=== PATIENT | male | born 1945 | race Caucasian/White ===

== ENCOUNTER → 2016-06-17 | Outpatient (CLI) | payer BC ==
[~2016-06-17] MED LIST: AMLO-110 PO; ASCA500 PO; ATOR-22 PO; CNT PO; GLUC100014 PO; PRCUNK PO; [UNRECOGNIZED DRUG - OTHER] PO
[2016-06-17 17:52] LABS: ALT/SGPT 48 U/L (12-78); BLOOD UREA NITROGEN 19 mg/dl (7-18); BUN/CREATININE RATIO 19.9 (10-20); CALCIUM 9.1 mg/dl (8.5-10.1); CARBON DIOXIDE 27 mmol/L (21-32); CHLORIDE 104 mmol/L (98-107); CHOLESTEROL 265 mg/dl (0-200); CREATININE 0.96 mg/dl (0.60-1.40); GLUCOSE 110 mg/dl (70-99); POTASSIUM 4.1 mmol/L (3.5-5.1); SODIUM 140 mmol/L (136-145)
[2016-06-17 17:55] LABS: ALB/GLOB RATIO 1.1 (0.9-2); ALKALINE PHOSPHATASE 67 U/L (45-117); AST/SGOT 29 U/L (15-37); CHOLESTEROL/HDL RATIO 4.6; HDL CHOLESTEROL 57 mg/dl; LDL CHOLESTEROL CALCULATED 151 mg/dl; TRIGLYCERIDES 287 mg/dl (0-150); VERY LOW DENSITY LIPOPROT CALC 57 mg/dl
[2016-06-17 18:32] LABS: ESTIMATED AVERAGE GLUCOSE 117 mg/dl; HA1C FLAG Normal (Normal)
== END | disposition home or self-care (01) ==
LOC: C.LABBFT 11:47
PROVIDERS: ATTEND Internal Medicine
DX: R73.01 Impaired fasting glucose (principal)

== ENCOUNTER → 2016-08-08 | Outpatient (CLI) | payer BC ==
--- NOTE | 2016-08-08 13:36 | DIAGNOSTIC IMAGING REPORT ---
ABDOMEN AND PELVIS CT WITH ORAL CONTRAST CT DOSE: 1519.26 mGy.cm HISTORY: Right lower quadrant abdominal pain. I10 [id number] Abdominal pain, [id number] TECHNIQUE: Multiaxial CT images of the abdomen and pelvis were performed following the use of oral contrast. COMPARISON STUDY: Abdomen and pelvis CT 04/20/2011. FINDINGS: Chronic elevation of the left hemidiaphragm, unchanged. Mild interstitial thickening at the lung bases, unchanged. No pneumoperitoneum. No pneumatosis. Small fat-containing right inguinal hernia. Hepatic steatosis. The unenhanced gallbladder, pancreas, adrenal glands, and spleen are unremarkable. Mild bilateral perinephric fat stranding remains unchanged and is likely chronic. No renal stones or hydronephrosis. The bladder is decompressed and not well evaluated. No retroperitoneal lymphadenopathy. No pelvic free fluid. Colonic diverticulosis. Prior appendectomy. A 13 mm hypodense lesion within the upper pole the right kidney. This is incompletely characterize on this noncontrast study but appears similar to the prior examination. Within the mid anterior abdomen there is a focal area of slightly distended small bowel measuring up to 3.9 cm in diameter. There is a focal caliber change on image 311 with a few thickened loops of decompressed small bowel distal to the distended small bowel loop. However, contrast easily extends through the small bowel loops. There is also minimal inflammatory change surrounding these loops of small bowel. There appears to be mild thickening of the loops of small bowel at this location. There is a small umbilical hernia, unchanged. This contains fat and a tiny knuckle of small bowel. However, this does not result in an obstruction. IMPRESSION: A few thickened loops of small bowel within the mid anterior abdomen with surrounding mild inflammatory change. This favors a nonspecific enteritis possibly due to infectious or inflammatory process. There is also focal dilatation of the proximal short segment of thickened small bowel with a transition point and decompressed distal thickened loops of small bowel. However, contrast easily extends into the cecum. Therefore, this may represent a low-grade partial small bowel obstruction from the thickened loops of small bowel. A [address] is recommended to ensure resolution of these findings. Electronically signed by: Ramon Duran M.D. 08/08/2016 1:34 PM Dictated Date/Time: 08/08/2016 1:19 PM
== END | disposition home or self-care (01) ==
LOC: C.CTS 10:35
PROVIDERS: ATTEND Internal Medicine
DX: I10 Essential (primary) hypertension (principal); R10.9 Unspecified abdominal pain

== ENCOUNTER → 2016-08-16 | Outpatient (CLI) | payer BC ==
[2016-08-16 14:35] LABS: BASO % 0.2 %; BASO ABS # 0.02 K/uL (0-0.2); EOS % 1.4 %; HEMATOCRIT 47.4 % (42-52); IG% 0.2 %; LYMPH % 24.2 %; LYMPH ABS # 2.14 K/uL (1.2-3.4); MEAN CELL VOLUME 87.5 fL (80-100); MEAN CORPUSCULAR HEMOGLOBIN 29.5 pg (25-34); MEAN PLATELET VOLUME 10.4 fL (7.4-10.4); MONO % 10.5 %; NEUT % 63.5 %; PLATELET COUNT 176 K/uL (130-400); RED BLOOD COUNT 5.42 M/uL (4.7-6.1); WHITE BLOOD COUNT 8.86 K/uL (4.8-10.8)
[2016-08-16 14:38] LABS: COMPLETE YES; MEAN CORPUSCULAR HGB CONC 33.8 g/dl (32-36)
[2016-08-16 15:49] LABS: ALB/GLOB RATIO 1.1 (0.9-2); ALKALINE PHOSPHATASE 78 U/L (45-117); ALT/SGPT 41 U/L (12-78); AST/SGOT 27 U/L (15-37); BLOOD UREA NITROGEN 26 mg/dl (7-18); BUN/CREATININE RATIO 28.1 (10-20); C-REACTIVE PROTEIN 0.33 mg/dl (0-0.29); CALCIUM 8.8 mg/dl (8.5-10.1); CARBON DIOXIDE 27 mmol/L (21-32); CHLORIDE 106 mmol/L (98-107); CREATININE 0.91 mg/dl (0.60-1.40); GLUCOSE 95 mg/dl (70-99); POTASSIUM 4.1 mmol/L (3.5-5.1); SODIUM 142 mmol/L (136-145)
== END | disposition home or self-care (01) ==
LOC: C.LAB1850 14:10
PROVIDERS: ATTEND Registered Nurse
DX: R93.5 Abnormal findings on diagnostic imaging of other abdominal regions, including retroperitoneum (principal)

== ENCOUNTER → 2016-08-16 | Outpatient (CLI) | payer BC ==
--- NOTE | 2016-08-16 14:53 | DIAGNOSTIC IMAGING REPORT ---
ABDOMEN 2VIEW W/PA CHEST RTN CLINICAL HISTORY: R10.31 Intermittent right lower quadrant abdominal painR14.0 Abd pain. Nausea. COMPARISON STUDY: No previous studies for comparison. FINDINGS: Chronic elevation left hemidiaphragm. Lungs are clear. No evidence for cardiac enlargement. Bowel pattern shows several air-filled loops of bowel left upper quadrant. No significant bowel distention is appreciated. IMPRESSION: 1. Mild ileus. 2. No acute process of the chest. Electronically signed by: Sam Saunders M.D. 08/16/2016 2:52 PM Dictated Date/Time: 08/16/2016 2:49 PM
== END | disposition home or self-care (01) ==
LOC: C.RAD1850 14:25
PROVIDERS: ATTEND Registered Nurse
DX: R14.0 Abdominal distension (gaseous) (principal); R10.31 Right lower quadrant pain; R93.5 Abnormal findings on diagnostic imaging of other abdominal regions, including retroperitoneum; K56.7 Ileus, unspecified

== ENCOUNTER → 2016-08-30 | Outpatient (CLI) | payer BC ==
[~2016-08-30] MED LIST changes: +OPTIRAY 320 IV PRN
--- NOTE | 2016-08-30 09:54 | DIAGNOSTIC IMAGING REPORT ---
CT OF THE ABDOMEN AND PELVIS WITH CONTRAST CLINICAL HISTORY: Intractable abdominal pain and bloating. Abnormal CT scan. COMPARISON STUDY: CT of the abdomen and pelvis August 08, 2016. TECHNIQUE: Following IV administration of 92 mL of Optiray-320, axial images of the abdomen and pelvis were obtained from the lung bases to the proximal femurs. Images were reviewed in the axial, sagittal, and coronal planes. IV contrast was administered without complication. Oral contrast was administered. CT DOSE: 1494.53 mGy.cm FINDINGS: Visualized portions of the lower chest demonstrate stable moderate elevation of the left hemidiaphragm. There is extensive coronary artery calcification. The heart is mildly enlarged. No pneumatosis, free air or portal venous gas is present. The liver, spleen, adrenal glands, left kidney and pancreas are unremarkable. A 1.7 cm right renal cyst is noted. There is no hydronephrosis. There is no biliary or pancreatic ductal dilatation. There is no evidence for a small bowel obstruction. Small bowel dilatation shown on exam of August 08, 2016 has resolved. Minimal mesenteric infiltration has resolved. Small bowel wall thickening shown on that study has also resolved. Note is made of a bowel and fat-containing umbilical hernia. A small bowel loop protrudes through the hernia defect. Small bowel protrusion has developed since prior CT. There is no resultant obstruction. The appendix is surgically absent. There is colonic diverticulosis without evidence for acute diverticulosis. There is no lymphadenopathy. No suspicious skeletal lesions are identified. The prostate is surgically absent. There are small fat-containing bilateral inguinal hernias. IMPRESSION: 1. No acute process within the abdomen or pelvis. Interval resolution of small bowel wall thickening, dilatation and associated mesenteric infiltration shown on CT of August 08, 2016. 2. Umbilical hernia which contains a loop of small bowel. Small bowel protrusion into the hernia sac reflects a new finding since prior exam but results in no bowel obstruction. 3. Extensive colonic diverticulosis without evidence for acute diverticulitis. Electronically signed by: Donta Chung M.D. 08/30/2016 9:53 AM Dictated Date/Time: 08/30/2016 9:43 AM
== END | disposition home or self-care (01) ==
LOC: C.CTS 09:08
PROVIDERS: ATTEND Registered Nurse
DX: R14.0 Abdominal distension (gaseous) (principal); R10.9 Unspecified abdominal pain; R93.5 Abnormal findings on diagnostic imaging of other abdominal regions, including retroperitoneum; K42.9 Umbilical hernia without obstruction or gangrene; K57.90 Diverticulosis of intestine, part unspecified, without perforation or abscess without bleeding

== ENCOUNTER → 2016-09-23 | Day surgery (SDC) | payer BC ==
[2016-09-09 15:47] VITALS: Ht 177.8 cm; Wt 113.2 kg
[~2016-09-23] VITALS: Ht 177.8 cm; Wt 113.2 kg
[~2016-09-23] MED LIST changes: +ATROPINE SULFATE 0.1 MG/ML 5ML SYR IV PRN; +EpHEDrine SULFATE INJ 50 MG/ML AMP IV PRN; +LIDOCAINE HCL 2% 2 ML VIAL (20MG/ML) ONE; -OPTIRAY 320 IV PRN; -PRCUNK PO; +PROPOFOL IV EMULSION 10 MG/ML 20 ML VIAL IV ONE; +SODIUM CHLORIDE 0.9% 500ML 500 ML IV ONE; -[UNRECOGNIZED DRUG - OTHER] PO
--- NOTE | 2016-09-23 13:00 | Endo History and Physical ---
History & Physical Date of Service: Sep 23, 2016. Chief Complaint: Abdominal Pain, Abnormal CT Referring Physician: Dr. Ramsey Mesa History of Present Illness 70 yo CM who presents for colonoscopy secondary to abdominal pain and abnormal CT scan. Past Surgical History Hx Cardiac Surgery: No Hx Internal Defibrillator: No Hx Abdominal Surgery: Yes (APPY) Hx Post-Op Nausea and Vomiting: No Hx Cancer Surgery: Yes (PROSTAATECTOMY) Hx Thoracic Surgery: No Hx Orthopedic: Yes (LUMBAR SURGERY) Hx Urinary Tract Surgery: No Family History None Social History Smoking Status: Never Smoker Hx Substance Use: No Hx Alcohol Use: No Allergies Coded Allergies: No Known Allergies (Verified , 09/23/16) Current Medications Reported Home Medications Medications Dose Route/Sig Max Daily Dose Days Date Category Lipitor (Atorvastatin Calcium) 20 Mg Tab 20 Mg PO QAM 09/09/16 Reported Norvasc (Amlodipine Besylate) 5 Mg Tab 5 Mg PO QAM 09/09/16 Reported Glucosamine (Glucosamine Sulfate) 1,000 Mg Cap 1 Tab PO QAM 09/09/16 Reported Centrum * (Multivitamins/Minerals) 1 Tab Tab 1 Tab PO QPM 04/20/11 Reported Vitamin C * (Ascorbic Acid) 500 Mg Tab 500 Mg PO QPM 04/10/10 Reported Vital Signs Weight (Kilograms): 113.18 Height (Feet): 5 Height (Inches): 10 Date Time Temp Pulse Resp B/P (MAP) Pulse Ox O2 Delivery O2 Flow Rate FiO2 09/23/16 12:29 36.7 70 20 145/85 (105) 95 Room Air Physical Exam General Appearance: WD/WN, no apparent distress Respiratory/Chest: Auscultation: breath sounds normal Cardiovascular: Heart Auscultation: RRR Abdomen: Bowel Sounds: normal Inspection & Palpation: soft, non-distended, no tenderness, guarding & rebound Assessment and Plan Assessment: 70 yo CM who presents for colonoscopy secondary to abdominal pain and abnormal CT scan. Plan: Proceed with Colonoscopy.
--- NOTE | 2016-09-23 13:27 | Discharge Instructions ---
Endoscopy Patient Instructions Date / Procedure(s) Performed Sep 23, 2016. Colonoscopy Allergy Information Coded Allergies: No Known Allergies (Verified , 09/23/16) Discharge Date / Findings Sep 23, 2016. Colon polyps Diverticulosis Internal hemorrhoids Medication Instructions OK to resume all medications today as prescribed Medications Dose Route/Sig Max Daily Dose Days Date Category Lipitor (Atorvastatin Calcium) 20 Mg Tab 20 Mg PO QAM 09/09/16 Reported Norvasc (Amlodipine Besylate) 5 Mg Tab 5 Mg PO QAM 09/09/16 Reported Glucosamine (Glucosamine Sulfate) 1,000 Mg Cap 1 Tab PO QAM 09/09/16 Reported Centrum * (Multivitamins/Minerals) 1 Tab Tab 1 Tab PO QPM 04/20/11 Reported Vitamin C * (Ascorbic Acid) 500 Mg Tab 500 Mg PO QPM 04/10/10 Reported Provider Instructions Activity Restrictions - No exercising or heavy lifting for 24 hours. - Do not drink alcohol the day of the procedure. - Do not drive a car or operate machinery until the day after the procedure. - Do not make any important decisions or sign important papers in 24 hours after the procedure. Following Day: - Return to full activity which may include returning to work/school. Diet Start your diet with liquids and light foods (jello, soup, juice, toast). Then eat your usual diet if not nauseated. Treatment For Common After Affects For mild abdominal pain, bloating, or excessive gas: - Rest - Eat lightly - Lie on right side Follow-Up Information Follow-up with Dr. Ramsey Mesa as scheduled Anesthesia Information What You Should Know You have had a procedure that required some medicine to reduce anxiety and discomfort. This treatment is called moderate sedation. After receiving the treatment, you may be sleepy, but you will be able to breathe on your own. The effects of the treatment may last for several hours. Follow these instructions along with Activity/Diet recommendations noted above: * Do NOT do anything where dizziness or clumsiness would be dangerous. * Rest quietly at home today, then you can be up and about tomorrow. * Have a responsible person stay with you the rest of today. * You may have had an I.V. today. If so, you may take the dressing off later today. Recommendations Call your doctor if: * Trouble breathing * Continuous vomiting for more than 24 hours * Temperature above 101 degrees * Severe abdominal pain or bloating * Pain not relieved by pain medicine ordered * There is increased drainage or redness from any incision * A large amount of rectal bleeding greater than 2-3 tablespoons. (If you had a polyp/s removed or have hemorrhoids, a small amount of blood - from the rectum is to be expected.) * You have any unanswered questions or concerns. IN THE EVENT OF A SERIOUS EMERGENCY, GO TO THE NEAREST EMERGENCY ROOM Your discharge instructions were prepared by provider Bay Herron. Patient Instructions Signature Page True Burton Patient (or Guardian) Signature/Date: I have read and understand the instructions given to me by my caregivers. Caregiver/RN/Doctor Signature/Date: The above-named patient and/or guardian has received patient instructions on this date. + Original Patient Signature Page (only) stays with chart. Please make copy for patient.
--- NOTE | 2016-09-23 13:35 | Anesthesiology Progress Note ---
Anesthesia Post Op Note Date & Time Sep 23, 2016 at 13:35 Vital Signs Pain Intensity: 0 Vital Signs Past 12 Hours Date Time Temp Pulse Resp B/P (MAP) Pulse Ox O2 Delivery O2 Flow Rate FiO2 09/23/16 13:25 65 20 116/70 (85) Room Air 09/23/16 12:29 36.7 70 20 145/85 (105) 95 Room Air Notes Mental Status: alert / awake / arousable, participated in evaluation Pt Amnestic to Procedure: Yes Nausea / Vomiting: adequately controlled Pain: adequately controlled Airway Patency, RR, SpO2: stable & adequate BP & HR: stable & adequate Hydration State: stable & adequate Anesthetic Complications: no major complications apparent
--- NOTE | 2016-09-23 13:37 | GI REPORT ---
Procedure Date: 09/23/2016 1:08 PM Procedure: Colonoscopy Indications: Generalized abdominal pain, Abnormal CT of the GI tract Medicines: Monitored Anesthesia Care Complications: No immediate complications. Estimated Blood Loss: Estimated blood loss: none. Procedure: Pre-Anesthesia Assessment: - Prior to the procedure, a History and Physical was performed, and patient medications and allergies were reviewed. The patient's tolerance of previous anesthesia was also reviewed. The risks and benefits of the procedure and the sedation options and risks were discussed with the patient. All questions were answered, and informed consent was obtained. Prior Anticoagulants: The patient has taken no previous anticoagulant or antiplatelet agents. ASA Grade Assessment: III - A patient with severe systemic disease. After reviewing the risks and benefits, the patient was deemed in satisfactory condition to undergo the procedure. After I obtained informed consent, the scope was passed under direct vision. Throughout the procedure, the patient's blood pressure, pulse, and oxygen saturations were monitored continuously. The scope was introduced through the anus and advanced to the terminal ileum. The colonoscopy was performed without difficulty. The patient tolerated the procedure well. The quality of the bowel preparation was good. The terminal ileum, ileocecal valve, appendiceal orifice, and rectum were photographed. Findings: Two sessile polyps were found in the descending colon and in the cecum. The polyps were 5 to 6 mm in size. These polyps were removed with a hot snare. Resection and retrieval were complete. A 3 mm polyp was found in the ascending colon. The polyp was sessile. The polyp was removed with a cold biopsy forceps. Resection and retrieval were complete. Multiple small-mouthed diverticula were found in the sigmoid colon. Non-bleeding internal hemorrhoids were found during retroflexion. The hemorrhoids were small. Impression: - Two 5 to 6 mm polyps in the descending colon and in the cecum, removed with a hot snare. Resected and retrieved. - One 3 mm polyp in the ascending colon, removed with a cold biopsy forceps. Resected and retrieved. - Diverticulosis in the sigmoid colon. - Non-bleeding internal hemorrhoids. Recommendation: - Resume previous diet. - Continue present medications. - Await pathology results. - Repeat colonoscopy for surveillance based on pathology results. - Return to primary care physician as previously scheduled. Bay Herron DO 09/23/2016 1:36:57 PM This report has been signed electronically. Note Initiated On: 09/23/2016 1:08 PM I attest to the content of the Intraoperative Record and orders documented therein, exceptions below
[2016-09-23 14:03] VITALS: BP 128/86; PULSE 69; O2SAT 97
== END | disposition home or self-care (01) ==
LOC: C.GI 12:00
PROVIDERS: ATTEND Internal Medicine
DX: R10.84 Generalized abdominal pain (principal); R93.5 Abnormal findings on diagnostic imaging of other abdominal regions, including retroperitoneum; D12.4 Benign neoplasm of descending colon; D12.0 Benign neoplasm of cecum; D12.2 Benign neoplasm of ascending colon; K57.30 Diverticulosis of large intestine without perforation or abscess without bleeding; K64.8 Other hemorrhoids

== ENCOUNTER → 2016-10-11 | Outpatient (CLI) | payer BC ==
[~2016-10-11] MED LIST changes: -ATROPINE SULFATE 0.1 MG/ML 5ML SYR IV PRN; -EpHEDrine SULFATE INJ 50 MG/ML AMP IV PRN; -LIDOCAINE HCL 2% 2 ML VIAL (20MG/ML) ONE; -PROPOFOL IV EMULSION 10 MG/ML 20 ML VIAL IV ONE; -SODIUM CHLORIDE 0.9% 500ML 500 ML IV ONE
[2016-10-11 12:43] LABS: ALT/SGPT 38 U/L (12-78); BLOOD UREA NITROGEN 20 mg/dl (7-18); CARBON DIOXIDE 25 mmol/L (21-32); CHLORIDE 106 mmol/L (98-107); CHOLESTEROL 170 mg/dl (0-200); CREATININE 0.93 mg/dl (0.60-1.40); GLUCOSE 109 mg/dl (70-99); POTASSIUM 4.1 mmol/L (3.5-5.1); SODIUM 138 mmol/L (136-145); TRIGLYCERIDES 145 mg/dl (0-150); VERY LOW DENSITY LIPOPROT CALC 29 mg/dl
[2016-10-11 12:48] LABS: ALB/GLOB RATIO 1.3 (0.9-2); ALKALINE PHOSPHATASE 66 U/L (45-117); AST/SGOT 23 U/L (15-37); CHOLESTEROL/HDL RATIO 2.3; HDL CHOLESTEROL 74 mg/dl; LDL CHOLESTEROL CALCULATED 67 mg/dl
== END | disposition home or self-care (01) ==
LOC: C.LABBFT 10:40
PROVIDERS: ATTEND Internal Medicine
DX: E78.5 Hyperlipidemia, unspecified (principal)

== ENCOUNTER → 2017-04-24 | Day surgery (SDC) | payer BC ==
[2017-04-01 11:17] VITALS: BMI 35.0
--- NOTE | 2017-04-01 11:59 | PAT Medication Instructions ---
Service Date Apr 01, 2017. Current Home Medication List Amlodipine (Norvasc), 5 MG PO QAM Ascorbic Acid (Vitamin C), 1 TAB PO QPM Aspirin (Aspirin Ec), 81 MG PO QAM Atorvastatin (Lipitor), 20 MG PO QAM Glucosamine Sulfate (Glucosamine), 1 TAB PO BID Multivitamin (Multivitamin), 1 TAB PO QPM Medication Instructions For Your Scheduled Surgery - Hold the following medications 2 weeks prior to surgery: Glucosamine Sulfate (Glucosamine), 1 TAB PO BID - Contact your surgeon for instructions for: Aspirin (Aspirin Ec), 81 MG PO QAM - Take the following medications the morning of surgery with a sip of water: Amlodipine (Norvasc), 5 MG PO QAM Atorvastatin (Lipitor), 20 MG PO QAM - Take the following medications as scheduled the night before surgery: Multivitamin (Multivitamin), 1 TAB PO QPM Ascorbic Acid (Vitamin C), 1 TAB PO QPM If you have any questions please call us at [phone] or [phone] or [phone]
[2017-04-01 13:54] LABS: BASO % 0.3 %; BASO ABS # 0.03 K/uL (0-0.2); EOS % 1.3 %; EOS ABS # 0.12 K/uL (0-0.5); HEMATOCRIT 46.9 % (42-52); HEMOGLOBIN 15.9 g/dL (14.0-18.0); IG# 0.02 K/uL (0.00-0.02); LYMPH % 22.8 %; LYMPH ABS # 2.07 K/uL (1.2-3.4); MEAN CELL VOLUME 88.3 fL (80-100); MEAN CORPUSCULAR HEMOGLOBIN 29.9 pg (25-34); MEAN CORPUSCULAR HGB CONC 33.9 g/dl (32-36); MEAN PLATELET VOLUME 10.8 fL (7.4-10.4); MONO % 10.3 %; MONO ABS # 0.93 K/uL (0.11-0.59); NEUT % 65.1 %; PLATELET COUNT 173 K/uL (130-400); RED CELL DISTRIBUTION WIDTH CV 13.3 % (11.5-14.5); RED CELL DISTRIBUTION WIDTH SD 43.2 fL (36.4-46.3); WHITE BLOOD COUNT 9.07 K/uL (4.8-10.8)
[2017-04-01 14:24] LABS: CALCIUM 9.5 mg/dl (8.5-10.1); CREATININE 0.92 mg/dl (0.60-1.40); POTASSIUM 4.8 mmol/L (3.5-5.1)
[~2017-04-24] VITALS: Ht 180.3 cm; Wt 114.8 kg
[~2017-04-24] MED LIST changes: +ACET-1256 PO; +ACETAMINOPHEN 1000 MG/100 ML IV IV ONE; +ASPI81TA28 PO; +ATROPINE SULFATE 0.1 MG/ML 5ML SYR IV PRN; +BUPIVACAINE/EPINEPHRINE 0.5% MPF 1:200,000 30 ML VIAL ONE; +CEFAZOLIN 2000MG IV PUSH 10 ML IV SCH; -CNT PO; +EpHEDrine SULFATE INJ 50 MG/ML AMP IV PRN; +FENTANYL CITRATE INJ 50 MCG/1 ML 2 ML VIAL IV PRN; +FENTANYL CITRATE INJ 50 MCG/1 ML 2 ML VIAL ONE; +GLYCOPYRROLATE INJ 0.2 MG/ML VIAL ONE; +HYDR-5688 PO; +HYDROCODONE/ACETAMOPHEN 5/325MG TAB PO PRN; +HYDROmorphone INJ 0.5 MG/0.5 ML SYR IV PRN; +HYDROmorphone INJ 2 MG/ML SYR/VIAL ONE; +LACTATED RINGER'S 1000ML 1,000 ML IV SCH; +LIDOCAINE HCL 2% 2 ML VIAL (20MG/ML) ONE; +MULT-506 PO; +NEOSTIGMINE METHYLSULFATE 5 MG/5 ML SYR ONE; +ONDANSETRON INJ 2 MG/ML 2 ML VIAL IV PRN; +ONDANSETRON INJ 2 MG/ML 2 ML VIAL ONE; +PROMETHAZINE HCL INJ 12.5 MG in SODIUM CHLORIDE 0.9% 50ML 50 ML IV PRN; +PROPOFOL IV EMULSION 10 MG/ML 20 ML VIAL IV ONE; +ROCURONIUM BROMIDE 10 MG/ML 5 ML VIAL IV ONE; +SODIUM CHLORIDE 0.9% 1000ML 1,000 ML IV SCH
[2017-04-24 05:37] VITALS: BP 143/83; PULSE 75; TEMP 36.6; O2SAT 97; Ht 180.3 cm; Wt 114.8 kg
--- NOTE | 2017-04-24 07:07 | History & Physical Bridge Note ---
H&P Re-Evaluation Bridge Note: I have examined the patient, reviewed the History & Physical and in the interval since the performance of the History & Physical I have noted the following changes of clinical significance: patient requesting diagnostic laparoscopy to evaluate lower abdominal pain as well. history of prior appendectomy and having persistent RLQ pain as well. we discussed the added risks. will change procedure to diagnostic laparoscopy with repair of umbilical hernia, possible mesh.
--- NOTE | 2017-04-24 08:41 | [facility] Post Operative Brief Note ---
Immediate Operative Summary Operative Date Apr 24, 2017. Pre-Operative Diagnosis Umbilical Hernia; RLQ abdominal pain Post-Operative Diagnosis Same as preop; adhesions Procedure(s) Performed Diagnostic Laparoscopy; enterolysis; Umbilical Hernia Repair Surgeon Dr. Douglas Consumer Loan Specialist Surgeon(s) Magalis Garza PA-C Estimated Blood Loss 10 ml Findings Consistent with Post-Op Diagnosis Specimens None per Surgeon Anesthesia Type General Complication(s) none Disposition Disposition: Recovery Room / PACU
--- NOTE | 2017-04-24 09:01 | Discharge Instructions ---
Discharge Instructions Date of Service Apr 24, 2017. Admission Reason for Admission: Umbilical Hernia Discharge Discharge Diagnosis / Problem: Umbilical Hernia Discharge Goals Goal(s): Decrease discomfort, Improve function Activity Recommendations Activity Limitations: as noted below Lifting Limitations: no more than 10 pounds Exercise/Sports Limitations: until after follow-up appointment May Resume Sexual Activity: after follow-up appointment Shower/Bathe: tomorrow Driving or Machine Use: resume 1 day after discharge . Instructions / Follow-Up Instructions / Follow-Up Please follow-up with Dr. Douglas in the General Surgery Clinic in 1-2 weeks. Please call the office at [phone] to make an appointment if you do not have one already. You may resume your Aspirin therapy tomorrow, 04/25/2017. Please call the office with any questions or concerns. Current Hospital Diet Patient's current hospital diet: Discharge Diet Recommended Diet: Regular Diet Procedures Procedures Performed: Diagnostic Laparoscopy; enterolysis; Umbilical Hernia Repair Pending Studies Studies pending at discharge: no Medical Emergencies . Who to Call and When: Medical Emergencies: If at any time you feel your situation is an emergency, please call 911 immediately. . Non-Emergent Contact Non-Emergency issues call your: Primary Care Provider, Surgeon Call Non-Emergent contact if: temperature is above 101.5, your pain is not controlled, wound has increased drainage, wound has increased redness . "Provider Documentation" section prepared by Magalis Garza. . VTE Core Measure Inpt VTE Proph given/why not?: SCD's [place] Drug Monitoring Program Search Results: patient reviewed within database, no issues identified
--- NOTE | 2017-04-24 09:19 | [facility] Operative Report ---
Operative Report Operative Date Apr 24, 2017. Pre-Operative Diagnosis Umbilical Hernia; RLQ abdominal pain Post-Operative Diagnosis Same as preop; adhesions Procedure(s) Performed Diagnostic Laparoscopy; enterolysis; Umbilical Hernia Repair Surgeon Dr. Douglas Emergency Management Specialist Surgeon(s) Magalis Garza PA-C Estimated Blood Loss 10 ml Findings umbililcal hernia; small bowel adhesions to right abdominal side wall Specimens None per Surgeon Anesthesia get Complication(s) None Disposition Recovery Room / PACU Description of Procedure After informed consent was obtained the patient was taken to the operating room and placed in a supine position. After successful intubation the abdomen was shaved and sterilely prepped and draped in usual fashion. I started with a curvilinear infraumbilical incision with 15 blade scalpel and carried this down through the soft tissue using electrocautery. Once we were down to the fascia I used a Marly clamp to come around the superior pole of the umbilicus. The umbilical stalk was detached using electrocautery revealing an approximate 1-1/ 2 cm hernia defect. There was a large chronic hernia sac was some omental incarceration. I removed the sac in its entirety and reduced the omentum. I placed 2 #0 Vicryl stay sutures on either side of the fascia and then placed a Lara trocar in the abdominal cavity. Insufflated the abdomen to 18 mmHg. The laparoscope was inserted and the abdomen was examined 360. His pain was primarily in the right side. He did have right-sided abdominal adhesions from the right lower quadrant up to the right upper quadrant involving omentum as well as small bowel. We placed 2 left midabdominal 5 mm trochars under direct vision. I used traction and sharp scissor lysis to take down the thin adhesions and a Harmonic scalpel to take down the thick omental adhesions. The bowel itself looked healthy. Large and small bowel. There was no evidence of any other hernias. There was no other gross pathology to speak of. Once the adhesions were all taken down the trochars were all removed and the abdomen was desufflated. The fascia of the umbilical hernia was closed using #1 Ethibond in interrupted [id number] fashion. I was concerned to put mesh because the abdominal wall at his umbilical area was extremely thin and I was worried about erosion through the skin. I therefore I simply irrigated the wound and reattached the umbilicus using 0 Vicryl. We closed deep layers using 2-0 Vicryl and skin closed using 4-0 Monocryl. Marcaine and skin glue was injected around the incisions. The patient was then awaken extubated and transferred recovery in stable condition My physician's assistant front end manager was present throughout the entire case. She helped with exposure for trocar placement she helped run the camera helped with exposure for the hernia repair helped with wound closure and dressing placement I attest to the content of the Intraoperative Record and any orders documented therein. Any exceptions are noted below.
--- NOTE | 2017-04-24 09:33 | Anesthesiology Progress Note ---
Anesthesia Post Op Note Date & Time Apr 24, 2017 at 09:32 Vital Signs Pain Intensity: 2 Vital Signs Past 12 Hours Date Time Temp Pulse Resp B/P (MAP) Pulse Ox O2 Delivery O2 Flow Rate FiO2 04/24/17 09:25 68 14 128/72 (97) 100 Nasal Cannula 2 04/24/17 09:24 36.7 72 17 125/78 (97) 99 Nasal Cannula 2 04/24/17 09:15 71 18 142/83 100 Oxymask 10 04/24/17 09:05 68 18 143/77 100 Oxymask 10 04/24/17 08:57 36.6 69 18 148/79 100 Oxymask 10 04/24/17 05:37 36.6 75 20 143/83 (103) 97 Room Air Notes Mental Status: alert / awake / arousable, participated in evaluation Pt Amnestic to Procedure: Yes Nausea / Vomiting: adequately controlled Pain: adequately controlled Airway Patency, RR, SpO2: stable & adequate BP & HR: stable & adequate Hydration State: stable & adequate Anesthetic Complications: no major complications apparent
[2017-04-24 09:45] VITALS: BP 129/70; PULSE 69; TEMP 36.7; O2SAT 95
[2017-04-24 10:15] VITALS: BP 152/83; PULSE 72; O2SAT 93
[2017-04-24 10:45] VITALS: BP 146/70; PULSE 80; TEMP 36.4; O2SAT 96
== END | disposition home or self-care (01) ==
LOC: C.ACU 04:53
PROVIDERS: ATTEND Surgery
DX: K42.9 Umbilical hernia without obstruction or gangrene (principal); R10.31 Right lower quadrant pain; E78.5 Hyperlipidemia, unspecified; I10 Essential (primary) hypertension; G47.33 Obstructive sleep apnea (adult) (pediatric); Z85.46 Personal history of malignant neoplasm of prostate; Z87.891 Personal history of nicotine dependence; Z79.82 Long term (current) use of aspirin; Z79.899 Other long term (current) drug therapy

== ENCOUNTER → 2017-05-23 | Outpatient (CLI) | payer BC ==
[~2017-05-23] MED LIST changes: -ACETAMINOPHEN 1000 MG/100 ML IV IV ONE; -ATROPINE SULFATE 0.1 MG/ML 5ML SYR IV PRN; -BUPIVACAINE/EPINEPHRINE 0.5% MPF 1:200,000 30 ML VIAL ONE; -CEFAZOLIN 2000MG IV PUSH 10 ML IV SCH; -EpHEDrine SULFATE INJ 50 MG/ML AMP IV PRN; -FENTANYL CITRATE INJ 50 MCG/1 ML 2 ML VIAL IV PRN; -FENTANYL CITRATE INJ 50 MCG/1 ML 2 ML VIAL ONE; -GLYCOPYRROLATE INJ 0.2 MG/ML VIAL ONE; -HYDR-5688 PO; -HYDROCODONE/ACETAMOPHEN 5/325MG TAB PO PRN; -HYDROmorphone INJ 0.5 MG/0.5 ML SYR IV PRN; -HYDROmorphone INJ 2 MG/ML SYR/VIAL ONE; -LACTATED RINGER'S 1000ML 1,000 ML IV SCH; -LIDOCAINE HCL 2% 2 ML VIAL (20MG/ML) ONE; -NEOSTIGMINE METHYLSULFATE 5 MG/5 ML SYR ONE; -ONDANSETRON INJ 2 MG/ML 2 ML VIAL IV PRN; -ONDANSETRON INJ 2 MG/ML 2 ML VIAL ONE; -PROMETHAZINE HCL INJ 12.5 MG in SODIUM CHLORIDE 0.9% 50ML 50 ML IV PRN; -PROPOFOL IV EMULSION 10 MG/ML 20 ML VIAL IV ONE; -ROCURONIUM BROMIDE 10 MG/ML 5 ML VIAL IV ONE; -SODIUM CHLORIDE 0.9% 1000ML 1,000 ML IV SCH
[2017-05-23 12:35] LABS: ALBUMIN 3.8 gm/dl (3.4-5.0); ALT/SGPT 42 U/L (12-78); BLOOD UREA NITROGEN 16 mg/dl (7-18); CALCIUM 9.3 mg/dl (8.5-10.1); CARBON DIOXIDE 28 mmol/L (21-32); CHOLESTEROL 199 mg/dl (0-200); CREATININE 0.93 mg/dl (0.60-1.40); GLUCOSE 109 mg/dl (70-99); POTASSIUM 4.3 mmol/L (3.5-5.1); SODIUM 138 mmol/L (136-145)
[2017-05-23 12:37] LABS: ALKALINE PHOSPHATASE 67 U/L (45-117); AST/SGOT 22 U/L (15-37); LDL CHOLESTEROL CALCULATED 86 mg/dl; TOTAL PROTEIN 7.2 gm/dl (6.4-8.2)
[2017-05-23 12:38] LABS: HEMOGLOBIN A1C 5.9 % (4.5-5.6)
== END | disposition home or self-care (01) ==
LOC: C.LABBFT 10:33
PROVIDERS: ATTEND Physician Assistant Medical
DX: E78.5 Hyperlipidemia, unspecified (principal); R73.01 Impaired fasting glucose; I10 Essential (primary) hypertension

== ENCOUNTER 2019-04-23 06:01 | Inpatient (IN) ==
--- NOTE | 2019-03-21 22:05 | PAT Medication Instructions ---
Medication Instructions Date of Service March 21, 2019 Home Medications amlodipine 5 mg tablet 5 mg PO QAM ascorbic acid (vitamin C) 500 mg tablet 500 mg PO QPM aspirin 81 mg tablet,delayed release 81 mg PO QPM glucosamine sulfate 1,000 mg capsule 1,000 mg PO BID multivitamin 1 tab PO QPM acetaminophen 500 mg PO DAILY PRN atorvastatin 20 mg PO QAM coenzyme Q10 [CoQ-10] 100 mg PO QAM STOP taking 2 weeks before surgery glucosamine sulfate 1,000 mg capsule 1,000 mg PO BID coenzyme Q10 [CoQ-10] 100 mg PO QAM Take morning of surgery With a small sip of water, OTHERWISE NOTHING TO EAT OR DRINK AFTER MIDNIGHT: amlodipine 5 mg tablet 5 mg PO QAM acetaminophen 500 mg PO DAILY PRN (if needed, may be taken up to four hours before surgery) atorvastatin 20 mg PO QAM Take evening before surgery ascorbic acid (vitamin C) 500 mg tablet 500 mg PO QPM aspirin 81 mg tablet,delayed release 81 mg PO QPM multivitamin 1 tab PO QPM acetaminophen 500 mg PO DAILY PRN (if needed) Other Notes If you have any questions please call us at [phone] or [phone] or [phone] or [phone]
--- NOTE | 2019-03-22 10:45 | Anesthesiology Consultation ---
Date of Service March 22, 2019 Assessment & Plan (1) Encounter for pre-operative examination: Chart Review Chart Review: Acceptable Risk for Surgery (pending pre op testing) and Patient seen in Pre Admission Testing Teaching & Discussion Instructed NPO after midnight before surgery, except medications with 15 cc of water. Medication instructions provided according to the PAT guidelines. History Surgery Operation Date: 04/23/19 10:00 Proposed Procedures p Right Reverse Total Shoulder Arthroplasty - Clement Javed, Height/Weight Height: 5 ft 10 in Weight: 118 kg Allergies Allergy/AdvReac Type Severity Reaction Status Date / Time No Known Allergies Allergy Mild Verified 03/15/19 10:45 Medications Home Medications Medication Instructions Recorded Confirmed Last Taken amlodipine 5 mg tablet 5 mg PO QAM tab 02/07/19 03/22/19 Unknown ascorbic acid (vitamin C) 500 mg 500 mg PO QPM 02/09/19 03/22/19 Unknown tablet aspirin 81 mg tablet,delayed 81 mg PO QPM 02/09/19 03/22/19 Unknown release glucosamine sulfate 1,000 mg 1,000 mg PO BID 02/09/19 03/22/19 Unknown capsule multivitamin 1 tab PO QPM 02/09/19 03/22/19 Unknown acetaminophen 500 mg PO DAILY PRN 03/15/19 03/15/19 Unknown atorvastatin 20 mg PO QAM 03/15/19 03/22/19 Unknown coenzyme Q10 [CoQ-10] 100 mg PO QAM 03/15/19 03/22/19 Unknown Past Medical History Medical History Diverticular disease High cholesterol History of atrial fibrillation Very remote history (~45yrs ago) was put on Digoxin for some time, but then changed PCPs and new PCP did event monitor, which showed no afib. Digoxin d/c'd, no issues since. History of prostate cancer History of skin cancer "PRE CANCEROUS" FROM HEAD History of stroke Possibly, maybe TIA, assc with single episode of Afib ~45 years ago. Hypertension Rotator cuff tear, right CURRENT ISSUE Seasonal allergies Sleep apnea DOES NOT USE MACHINE Exercise / Class Metabolic Activity II 4-5 Yardwork/Stairs/Walk up hill (Denies CP or SOB with 1 FOS, does 1 flight many times daily) Past Surgical History Surgical History History of back surgery Hx of appendectomy Hx of colonoscopy Hx of prostatectomy Hx of umbilical hernia repair Past Anesthesia History No Hx of Anesthesia Complications and No Family Hx of Anesthesia Complications History of PONV No Hx of PONV and No Hx of Motion Sickness Social History Smoking Status: Former smoker tobacco type: cigarettes Do You Dip or Chew Tobacco: No Smoking End Date: ? 10 YR Hx Alcohol Use: No Hx Substance Use: No Review of Systems Pt denies any recent chest pain, shortness of breath, palpitations, cough, fever or URI. +congestion, mild cough, relieved with OTC allergy medicine Physical Exam Vital Signs BP: 128/84 P: 62bpm SPO2: 98% RA T: 97.7 F R: 20 Constitutional + obese ENMT Mouth: no dental restorations, no chipped teeth and no loose teeth Thyromental Distance: > or= 3.5 Finger Breadths (3.5) Mallampati Class: I Neck + short neck; neck extension not limited Respiratory normal respiratory effort Auscultation: lungs clear to auscultation bilaterally Cardiovascular Rate/Rhythm: regular rate and regular rhythm Heart Sounds: no murmur Vessels: no carotid bruit Testing Echocardiogram Date: 05/28/17 EF: 60-65% Normal left ventricular size and systolic function. No regional wall motion abnormalities. No LVH. Type I diastolic dysfunction. Mild mitral valve leaflet calcifications noted with mild mitral annular calcification. Technically difficult study enhanced with IV Definity. No prior study available for comparison.
--- NOTE | 2019-03-22 11:14 | XRay Report ---
XR chest Pre-admission PA/Lat HISTORY: 73 years-old Male pat preoperative exam. Chronic cough COMPARISON: Acute abdominal series radiographs 08/16/2016, CT abdomen and pelvis 08/08/2016 TECHNIQUE: PA and lateral views of the chest. FINDINGS: Chronic left hemidiaphragmatic elevation. Mild left basilar atelectasis/scarring persists. Unchanged cardiac mediastinal and hilar contours. No pneumothorax, large pleural effusion, overt pulmonary zach a or new airspace consolidation. Degenerative changes of the shoulders and spine. IMPRESSION: 1. No acute process. 2. Chronic left hemidiaphragm elevation. ACT 112: Negative or not required by law. The above report was generated using voice recognition software. It may contain grammatical, syntax o r spelling errors. Electronically signed by: Gerardo Pickard M.D. 03/22/2019 11:13 AM
[2019-03-22 12:38] LABS: Basophils # (auto) 0.02 K/uL (0-0.2); Basophils % (auto) 0.2 %; Eosinophils # (auto) 0.14 K/uL (0-0.5); Eosinophils % (auto) 1.7 %; Hematocrit (blood only) 47.4 % (42-52); Hemoglobin 15.9 g/dL (14.0-18.0); Immature Granulocytes # (auto) 0.01 K/uL (0.00-0.02); Immature Granulocytes % (auto) 0.1 %; Lymphocytes # (auto) 2.01 K/uL (1.2-3.4); Mean Corpuscular Hemoglobin 29.9 pg (25-34); Mean Corpuscular Hgb Conc 33.5 g/dL (32-36); Mean Corpuscular Volume 89.1 fL (80-100); Mean Platelet Volume 11.1 fL (7.4-10.4); Monocytes # (auto) 1.17 K/uL (0.11-0.59); Monocytes % (auto) 13.9 %; Neutrophils # (auto) 5.04 K/uL (1.4-6.5); Neutrophils % (auto) 60.1 %; Platelet Count 189 K/uL (130-400); RDW Coefficient of Variation 13.6 % (11.5-14.5); RDW Standard Deviation 44.7 fL (36.4-46.3); Red Blood Count 5.32 M/uL (4.7-6.1); White Blood Count 8.39 K/uL (4.8-10.8)
[2019-03-22 12:47] LABS: Partial Thromboplastin Ratio 0.9; Partial Thromboplastin Time 25.1 Seconds (21.0-31.0); Prothrombin Time 10.3 Seconds (9.0-12.0)
[2019-03-22 13:10] LABS: Calcium 9.5 mg/dl (8.5-10.1); Creatinine Clr Calc Pharmacy 85.1 ml/min; Est GFR (African American) 87.7; Est GFR (Non-African American) 75.6; Potassium 4.4 mmol/L (3.5-5.1)
--- NOTE | 2019-04-22 06:54 | History & Physical Report ---
Date of Service April 22, 2019 Assessment & Plan (1) Right rotator cuff tear: Rotator cuff tear extent: complete Rotator cuff tear trauma status: traumatic Encounter type: subsequent encounter Qualified Code(s): S46.011D - Strain of muscle(s) and tendon(s) of the rotator cuff of right shoulder, subsequent encounter (2) Rotator cuff arthropathy of right shoulder: We will proceed with a right reverse shoulder arthroplasty. Postoperatively he will be placed in a sling and kept overnight in the hospital for postoperative medical management. He plans to use [facility] physical therapy upon discharge. Present on Admission?: Yes History of Present Illness Chief Complaint: Rotator cuff arthropathy of the right shoulder Primary Care Provider: Ramsey Mesa MD True is a pleasant 73-year-old male who is been dealing with increasing right shoulder pain. He had a fall about 3 months ago when his shoulder became much worse. He has a lot of pain and weakness in his arm. MRI of the shoulder showed a massive retracted rotator cuff tear. After failing conservative treatment, he elected to proceed with a right reverse shoulder arthroplasty. Allergies Allergy/AdvReac Type Severity Reaction Status Date / Time No Known Allergies Allergy Mild Verified 03/15/19 10:45 Home Medications Home Medications Medication Instructions Recorded Confirmed Type amlodipine 5 mg tablet 5 mg PO QAM tab 02/07/19 03/22/19 History ascorbic acid (vitamin C) 500 mg 500 mg PO QPM 02/09/19 03/22/19 History tablet aspirin 81 mg tablet,delayed 81 mg PO QPM 02/09/19 03/22/19 History release glucosamine sulfate 1,000 mg 1,000 mg PO BID 02/09/19 03/22/19 History capsule multivitamin 1 tab PO QPM 02/09/19 03/22/19 History acetaminophen 500 mg PO DAILY PRN 03/15/19 03/15/19 History atorvastatin 20 mg PO QAM 03/15/19 03/22/19 History coenzyme Q10 [CoQ-10] 100 mg PO QAM 03/15/19 03/22/19 History Past Med/Surg History Medical History Diverticular disease High cholesterol History of atrial fibrillation Very remote history (~45yrs ago) was put on Digoxin for some time, but then changed PCPs and new PCP did event monitor, which showed no afib. Digoxin d/c'd, no issues since. History of prostate cancer History of skin cancer "PRE CANCEROUS" FROM HEAD History of stroke Possibly, maybe TIA, assc with single episode of Afib ~45 years ago. Hypertension Rotator cuff tear, right CURRENT ISSUE Seasonal allergies Sleep apnea DOES NOT USE MACHINE Surgical History History of back surgery Hx of appendectomy Hx of colonoscopy Hx of prostatectomy Hx of umbilical hernia repair Social History Preferred Language: Lithuanian Communication Ability: Effective Visual Impairment: No Limitations Hearing Ability: Normal Beliefs That Will Affect Care: None marital status: Current Living Situation: Spouse current occupational status: employed current occupation: Self-emplyoed Feels Safe at Home: Yes Smoking Status: Former smoker Tobacco Type: cigarettes ; Second Hand Exposure: No ; Hx Alcohol Use: No Hx Substance Use: No Childhood Exposure to Second-Hand Smoke: No Dental Care, Regularly: Yes Physical Activity Frequency: Does not Exercise Seatbelt Use: sometimes Review of Systems All systems reviewed & are unremarkable except as noted in HPI & below Physical Exam Constitutional: WD/WN, vitals as above Eyes: PERRL, conjunctivae normal, anicteric sclerae ENMT: external ear and nose normal, oropharynx normal Neck: trachea midline, no thyromegaly Respiratory: normal respiratory effort Cardiovascular: RRR, no murmur, no edema Gastrointestinal (Abdomen): normal bowel sounds, soft, nontender, no hepatosplenomegaly Musculoskeletal: Physical examination of the right shoulder reveals decreased range of motion and significant weakness. There is tenderness palpation along the anterior glenohumeral joint line. The right upper extremity is neurovascularly intact. Psychiatric: A+Ox3, euthymic affect Results & Data Diagnostic Findings Radiographs of the right shoulder show some signs of osteoarthritis with blunting of the greater tuberosity and some superior migration of the humeral head on the glenoid.
[~2019-04-23 06:01] MED LIST changes: -ACET-1256 PO; +ACETAMINOPHEN 500 MG TAB PO SCH; -AMLO-110 PO; -ASCA500 PO; -ASPI81TA28 PO; -ATOR-22 PO; +CEFAZOLIN 2000MG 2,000 MG/15 ML SYR IV SCH; +FAMOTIDINE 20 MG TAB PO SCH; +GABAPENTIN 300 MG CAP PO SCH; -GLUC100014 PO; +LR 15ML/HR IV SCH; +LR 500ML BOLUS, THEN 15ML/HR IV SCH; +LR 60ML/HR IV SCH; -MULT-506 PO; +ROPIVACAINE 0.5% HCL/PF 150 MG, BUPIVACAINE 0.5% MPF 30 ML, EPINEPHrine 30MG/30ML (OR U... INFIL SCH; +TRANEXAMIC ACID 1,000 MG **IV Intra-op IV SCH; +TRANEXAMIC ACID 1,000 MG **IV Pre-op IV SCH; +dexAMETHasone 4 MG TAB PO SCH
[2019-04-23] MEDS ORDERED: BUPIVACAINE 0.5 % 5 MG/1 ML PF 10ML VIAL ONE (06:32)
--- NOTE | 2019-04-23 06:48 | History & Physical Bridge Note ---
Date of Service April 23, 2019 History & Physical Bridge Note I have examined the patient, reviewed the History & Physical and in the interval since the performance of the History & Physical I have noted the following changes of clinical significance: no changes noted
[2019-04-23] MEDS ORDERED: fentaNYL citrate 100 MCG/2 ML VIAL ONE (06:59)
[2019-04-23] MEDS ORDERED: MIDAZOLAM HCL 1 MG/ML 2ML VIAL ONE (06:59)
[2019-04-23] MEDS ORDERED: fentaNYL citrate 100 MCG/2 ML VIAL IV PRN (07:17)
[2019-04-23] MEDS ORDERED: ATROPINE SULFATE 0.1 MG/ML 10ML SYR IV PRN (07:17)
[2019-04-23] MEDS ORDERED: ONDANSETRON INJ 2 MG/ML 2 ML VIAL IV PRN ×2 (07:17→11:10)
[2019-04-23] MEDS ORDERED: ePHEDrine sulfate 50 MG/ML AMP IV PRN (07:17)
[2019-04-23] MEDS ORDERED: ROCURONIUM BROMIDE 10 MG/ML 5 ML VIAL ONE (08:59)
[2019-04-23] MEDS ORDERED: NEOSTIGMINE METHYLSULFATE 5 MG/5 ML SYR ONE (08:59)
[2019-04-23] MEDS ORDERED: LIDOCAINE HCL 2% 2 ML VIAL/AMP(20MG/ML) INFIL ONE (08:59)
[2019-04-23] MEDS ORDERED: PROPOFOL IV EMULSION 10 MG/ML 20 ML VIAL IV ONE (08:59)
[2019-04-23] MEDS ORDERED: GLYCOPYRROLATE 0.2 MG/ML VIAL ONE (08:59)
--- NOTE | 2019-04-23 09:43 | Operative Report ---
PG Post Operative Report Pre & Post Diagnosis Operation Date: 04/23/19 08:40 Pre-Op Diagnosis: Rotator cuff arthropathy of the right shoulder Post-Op Diagnosis: Rotator cuff arthropathy of the right shoulder I identified the patient and participated in the time-out.: Yes Procedure Operation Date: 04/23/19 08:40 Actual Procedures p Right Reverse Total Shoulder Arthroplasty(Right) - Clement Javed DO Surgeon Clement Javed DO Vp Integration Clement Esposito PAC Estimated Blood Loss 200 Findings Consistent with Post-Op Diagnosis Specimens Right humeral head Complications none Disposition Disposition: Recovery Room Indications True is a pleasant 73-year-old male who presented my office with chronic increasing right shoulder pain. X-rays and clinical examination were diagnostic for rotator cuff arthropathy of the right shoulder. After failing conservative treatment, he elected to proceed with a right reverse shoulder arthroplasty. Description of Procedure Implants used: I used a [employer]omet Comprehensive reverse total shoulder arthroplasty system with a size 13 press fit mini humeral stem, a standard humeral tray and a standard humeral bearing, a 25 mm mini baseplate with a 6.5 mm central screw and superior and inferior locking screws, and a size 36 mm eccentric glenosphere. The patient arrived at [facility] for the above procedure. There were seen in the preoperative holding area and the operative extremity was identified and signed. They were given a preoperative antibiotic and an interscalene nerve block. They were taken back to the operating room, laid on table in supine position, and put under general anesthesia. They were then put into the beachchair position. The shoulder was then prepped and draped in sterile fashion. A timeout was done and the patient and the operative extremity was properly identified. A deltopectoral approach was used. Dissection was taken down through the fascia and the deltoid was retracted laterally and the conjoined tendon was retracted medially. The anterior shoulder was exposed. The long head of the biceps tendon was tenodesed to the upper border of the pectoralis major. The subscapularis was then released off the lesser tuberosity with a centimeter of cuff tissue remaining. The inferior capsule was released and the humeral head was dislocated. A canal finding reamer was sent down the center of the humeral canal. Sequential reaming up to a size 13 reamer was done. Off that reamer, a proximal humeral resection guide was placed. The proximal humerus was resected at 135 of inclination and 25 of retroversion. Osteophytes were then removed and the glenoid was exposed. Time was spent doing a complete capsular and labral release. The glenoid guide was then placed in the inferior aspect of the glenoid. A 3.2 mm Steinmann pin was then placed into the glenoid vault at 10 of inclination. The glenoid baseplate was then reamed. The final size 25 mm mini baseplate was then impacted in the place. A 6.5 mm central screw was then placed followed by superior and inferior locking screws. A 36 mm eccentric glenoid sphere was then impacted into place. Surrounding soft tissues were then injected with 100 cc an orthopedic pain control cocktail. The proximal humerus was then exposed. Sequential broaching of the humerus up to a size 13 broach was done. Off that broach a standard humeral tray was trialed. The shoulder was then reduced, brought through a full range of motion and felt to be stable. The shoulder was then dislocated and the broach was removed. The final size 13 mini press-fit humeral stem was then impacted into place. A standard humeral bearing was then snapped onto a standard humeral tray and the ring-lock mechanism was engaged. The humeral tray was then impacted onto the humeral stem. The shoulder was once again reduced, brought through a full range of motion and felt to be stable. The subscapularis was then tenodesed back to the lesser tuberosity with lopez sosseous FiberWire sutures and side to side sutures with the arm in 45 of external rotation. A dilute betadyne lavage was then done for 3 minutes. The joint was then irrigated with normal saline solution. Hemostasis was obtained. The skin was then closed with 2-0 Vicryl, 3-0V lock suture, and rogelio. A soft dressing and a regular arm sling was placed. The patient was then extubated and transferred to a hospital bed. They were taken to the postanesthesia care unit in stable condition. They tolerated the procedure well. I attest to the content of the Intraoperative Record and any orders documented therein. Any exceptions are noted below.
--- NOTE | 2019-04-23 10:37 | Anesthesiology Progress Note ---
Date of Service April 23, 2019 Anesthesia Post Procedure Vital Signs Vital Signs: Temp Pulse Pulse Resp BP Pulse Ox 04/23/19 10:30 97.7 F 69 16 119/64 95 04/23/19 10:20 66 19 119/65 96 04/23/19 10:10 72 17 127/65 96 04/23/19 10:04 97.3 F L 74 16 130/69 96 04/23/19 06:37 97.9 F 85 18 160/88 H 95 Pain Intensity Right Shoulder: Pain Intensity: 1 Transfer of Care Handoff Completed per policy Notes Mental Status: alert / awake / arousable and participated in evaluation Patient Amnestic to Procedure: Yes Nausea / Vomiting: adequately controlled Pain: adequately controlled Airway Patency, RR, SpO2: stable & adequate BP & HR: stable & adequate Hydration State: stable & adequate Anesthetic Complications: no major complications apparent and Pt Satisfied with anesthetic care
--- NOTE | 2019-04-23 10:47 | XRay Report ---
XR shoulder RT min 2V routine CLINICAL HISTORY: 73 years-old Male presenting with Post shoulder surgery. TECHNIQUE: Frontal and transscapular Y views of the right shoulder were obtained. COMPARISON: 12/17/2018. FINDINGS: Postsurgical changes of reverse total right shoulder arthroplasty. No periprosthetic fracture or junior lignment. Overlying skin rogelio. Soft tissue emphysema noted. Acromioclavicular joint congruent with mild degenerative changes. Mildly low lung volume on the right. No pneumothorax. IMPRESSION: 1. Expected postsurgical appearance status post reversed total right shoulder arthroplasty. 2. Right lung atelectasis suspected. ACT 112: Negative or not required by law. Electronically signed by: Ramsey Jimenez M.D. 04/23/2019 10:46 AM
[2019-04-23] MEDS ORDERED: METOCLOPRAMIDE HCL INJ 5 MG/ML 2 ML VIAL IV PRN (11:10)
[2019-04-23] MEDS ORDERED: NALOXONE HCL 0.4 MG/1 ML VIAL/CARP IV PRN (11:10)
[2019-04-23] MEDS ORDERED: bisacodyL 10 MG SUPP PR PRN (11:10)
[2019-04-23] MEDS ORDERED: OXYCODONE HCL IR 5 MG TAB (IMMEDIATE RELEASE) PO PRN (11:10)
[2019-04-23] MEDS ORDERED: MAGNESIUM HYDROXIDE SUSP 30 ML UDC PO PRN (11:10)
[2019-04-23] MEDS ORDERED: HYDROmorphone INJ 0.5 MG/0.5 ML SYR IV PRN (11:10)
[2019-04-23] MEDS ORDERED: SODIUM CHLORIDE 0.9% 1000ML 1,000 ML IV SCH (11:20)
[2019-04-23] MEDS: KETOROLAC TROMETHAMINE 15 MG/ML VIAL IV SCH ×3 (11:42→23:07)
[2019-04-23] MEDS ORDERED: KETOROLAC 30 MG/ML VIAL IV SCH (12:00)
[2019-04-23] MEDS: ACETAMINOPHEN 500 MG TAB PO SCH ×2 (13:58→21:01)
[2019-04-23] MEDS: CEFAZOLIN 2000MG 2,000 MG/15 ML SYR IV SCH ×2 (15:26→23:08)
[2019-04-23] MEDS ORDERED: SENNA 8.6 MG TAB PO SCH (21:00)
[2019-04-23] MEDS: DOCUSATE SODIUM 100 MG CAP PO SCH (21:00)
[2019-04-24] MEDS: KETOROLAC TROMETHAMINE 15 MG/ML VIAL IV SCH (05:08)
[2019-04-24] MEDS: ACETAMINOPHEN 500 MG TAB PO SCH (05:13)
[2019-04-24 06:21] LABS: Basophils # (auto) 0.01 K/uL (0-0.2); Basophils % (auto) 0.1 %; Hematocrit (blood only) 40.4 % (42-52); Hemoglobin 13.5 g/dL (14.0-18.0); Immature Granulocytes # (auto) 0.04 K/uL (0.00-0.02); Immature Granulocytes % (auto) 0.3 %; Lymphocytes # (auto) 1.26 K/uL (1.2-3.4); Lymphocytes % (auto) 8.8 %; Mean Corpuscular Hemoglobin 29.2 pg (25-34); Mean Corpuscular Hgb Conc 33.4 g/dL (32-36); Mean Corpuscular Volume 87.4 fL (80-100); Mean Platelet Volume 10.6 fL (7.4-10.4); Monocytes # (auto) 1.29 K/uL (0.11-0.59); Neutrophils # (auto) 11.69 K/uL (1.4-6.5); Neutrophils % (auto) 81.8 %; Platelet Count 161 K/uL (130-400); RDW Coefficient of Variation 13.9 % (11.5-14.5); RDW Standard Deviation 44.8 fL (36.4-46.3); Red Blood Count 4.62 M/uL (4.7-6.1); White Blood Count 14.29 K/uL (4.8-10.8)
[2019-04-24 06:56] LABS: BUN Creatinine Ratio 31.4 (10-20); Calcium 8.7 mg/dl (8.5-10.1); Creatinine Clr Calc Pharmacy 96.6 ml/min; Est GFR (African American) 98.5; Potassium 4.1 mmol/L (3.5-5.1)
[2019-04-24] MEDS ORDERED: dexAMETHasone 4 MG TAB PO SCH (08:00)
[2019-04-24] MEDS ORDERED: ATORVASTATIN 20 MG TAB PO SCH (09:00)
[2019-04-24] MEDS ORDERED: AMLODIPINE BESYLATE 5 MG TAB PO SCH (09:00)
[2019-04-24] MEDS ORDERED: MULTIVITAMIN TAB PO SCH (09:00)
[2019-04-24] MEDS: DOCUSATE SODIUM 100 MG CAP PO SCH (09:29)
--- NOTE | 2019-04-24 10:08 | Orthopedic Progress Note ---
Date of Service April 24, 2019 Assessment & Plan (1) History of reverse total replacement of right shoulder joint: Overall he is doing very well. Is not having much pain in the right shoulder. He will be seen by physical therapy this morning for ambulation and range of motion exercises. He can be discharged home later today. He will follow-up with orthopedics in 2 weeks. Present on Admission?: Yes Subjective True was seen and examined at bedside this morning. Overall he is doing very well. Is not having much pain in the right shoulder. He is happy with his progress to this point. He has no complaints. Physical Exam Musculoskeletal: On physical examination of the right shoulder, the dressing is clean and dry. He is wearing a sling as instructed. His radial, median, and ulnar nerves are checked and intact at his wrist. His axillary nerve was not checked yet. Results & Data Vital Signs (Past 12 Hours) Vital Signs Temp Pulse Resp BP Pulse Ox 04/24/19 08:08 36.5 C 74 16 172/75 H 94 04/24/19 03:27 36.7 C 70 16 142/77 H 96 04/23/19 23:16 36.6 C 73 20 144/86 H 95 Laboratory Results H & H 03/22/19 04/24/19 Range/Units 10:16 06:02 Hgb 15.9 13.5 L (14.0-18.0) g/dL Hct 47.4 40.4 L (42-52) % Coagulation 03/22/19 Range/Units 10:16 INR 1.0 (0.9-1.1) Diagnostic Findings Postoperative x-rays of the right shoulder show the prosthesis to be in anatomic alignment without any evidence of fracture, dislocation, or loosening. PG Care Time/CCT Total # of Minutes Spent Total Time Spent with Patient: Total time spent is greater than 50% in coordination of care (as documented) at patient's floor/unit and/or counseling patient: Coding Level of Care Code None Diagnoses History of reverse total replacement of right shoulder joint Z98.890
--- NOTE | 2019-04-24 10:11 | Discharge Summary ---
Date of Service April 24, 2019 Admission HPI Per Admitting Provider True is a pleasant 73-year-old male who is been dealing with increasing right shoulder pain. He had a fall about 3 months ago when his shoulder became much worse. He has a lot of pain and weakness in his arm. MRI of the shoulder showed a massive retracted rotator cuff tear. After failing conservative treatment, he elected to proceed with a right reverse shoulder arthroplasty. Principal Diagnosis Right reverse shoulder arthroplasty Discharge Data Allergies Allergy/AdvReac Type Severity Reaction Status Date / Time No Known Allergies Allergy Mild Verified 04/23/19 06:31 Procedures Performed Operation Date: 04/23/19 08:40 Actual Procedures p Right Reverse Total Shoulder Arthroplasty(Right) - Clement Javed DO Ordered Studies 04/23/19 05:00 US - OR guided needle placemen Routine Hospital Course (1) History of reverse total replacement of right shoulder joint: On April 23, 2019 True arrived at [facility] and underwent a right reverse shoulder arthroplasty without complication. He had a general anesthetic and a right interscalene nerve block. Postoperatively he was placed in a sling and discharged to general orthopedic floors. His hospital course was uneventful. On postop day #1 his H&H was stable and his pain was well controlled. He was able to participate well with physical therapy doing ambulation and range of motion exercises. He was then discharged home with physical therapy. He will follow-up with orthopedics in 2 weeks. Total Time Total Time Spent Total Time Spent (In Minutes): 20 Discharge Plan Discharge Items Patient Disposition: Home - Home Health Services Reason For Visit: RIGHT SHOULDER DEGENERATIVE JOINT DISEASE Discharge Diagnosis: Right reverse shoulder arthroplasty Activity: As commented below Non-emergency contact: Surgeon Call non-emergency contact if: your wound has increased redness and your wound has increased drainage Follow-up/Referrals: Ramsey Mesa MD [Primary Care Provider] - Diet: Regular Addtl Attending Provider Instructions: Activity and Therapy Recommendations: * If you are using [facility] then therapy will be provided at your home until they feel you have accomplished all of your goals. * If you are using [facility] then Physical Therapy will be provided until they feel you are ready to start Outpatient Physical Therapy. * If you are not using home therapy then Outpatient Physical Therapy should start about 3-5 days from your day of surgery. Therapy will last about 8-12 weeks * Wear your sling for 3 weeks, unless otherwise instructed. You may remove your sling to shower and to dress, but otherwise, you should be in your sling at all times, including while sleeping * The shoulder replacement is very stable and you can use your hand while in the sling * You were shown a series of exercises in the hospital. Do these exercises daily including the exercises you were shown in physical therapy. Medications: * Narcotic You will likely be sent home from the hospital with a prescription for the narcotic pain medication that worked best throughout your stay. * Other medications may be prescribed for specific circumstances. If you have any questions, please call the office at . * Resume previous home medications unless otherwise instructed Dressing Care: Leave the plastic dressing in place for 5 days. After 5 days you may remove the plastic dressing. If the incision is not draining then you may leave the rogelio open to air. If there is a little bit of drainage or if the rogelio are getting stuck on your clothing then cover the incision with a dry dressing. The rogelio will be removed at your 2 week follow-up appointment. Showering: You may shower with the plastic dressing in place. Let the shower spray hit the other shoulder. You can pat the plastic dry. If the dressing becomes wet underneath the plastic then simply remove the dressing. Keep the incision dry until you are 5 days out from the day of surgery. At that time you can shower with the rogelio exposed. Let the soapy shower water run over the rogelio and pat them dry. Do not scrub or soak the incision. Things To Watch For: * Drainage from the incision site that occurs more than one week after your surgery. * Increased redness at the incision site. * Fever above 102 degrees Fahrenheit. * Unusual chest pain or shortness of breath. * Call [facility] at with any of the above problems Follow-Up Visit: Follow-up with Dr. Javed 2-3 weeks after your day of surgery. An appointment was probably scheduled when you signed-up for surgery in the office. If you have any questions call Office Instructions: More detailed instructions as well as Frequently Asked Questions were provided in a folder by our office when you signed-up for surgery. Please review these instructions when you get home. If you have any further questions or concerns, please feel free to call the office at [phone] Pending Studies at Discharge: No Stand-Alone Forms: My [facility], Smoking Cessation Medications and DC Order Prescriptions: New oxycodone 5 mg Tablet 5 mg PO Q4H PRN (Reason: pain) Qty: 30 RF: 0 Continued amlodipine [Norvasc] 5 mg tablet 5 mg PO QAM RF: 0 aspirin [Adult Low Dose Aspirin] 81 mg tablet,delayed release (DR/EC) 81 mg PO QPM RF: 0 glucosamine sulfate 1,000 mg capsule 1,000 mg PO BID RF: 0 multivitamin tablet 1 tab PO QPM RF: 0 ascorbic acid (vitamin C) 500 mg tablet 500 mg PO QPM RF: 0 coenzyme Q10 [CoQ-10] 100 mg Capsule 100 mg PO QAM RF: 0 atorvastatin [Lipitor] 20 mg tablet 20 mg PO QAM RF: 0 acetaminophen 500 mg Tablet 500 mg PO DAILY PRN (Reason: Pain) RF: 0 Discharge Orders: Discharge Order (Routine); Ordered 04/24/19 Ordered By: Clement Javed Admission Data Admit Date/Time: 04/23/19 10:00 Attending Provider: Clement Javed Admit Provider: Clement Javed Primary Care Provider: Ramsey Mesa Coding Level of Care Code D/C Day Management <30 mins Diagnoses History of reverse total replacement of right shoulder joint Z98.890
== END 2019-04-24 11:46 | disposition home or self-care (01) | DRG 483 ==
LOC: ASU 06:01 → 3E 10:00

== ENCOUNTER 2022-06-14 06:32 | Observation (INO) ==
--- NOTE | 2022-03-25 12:55 | PAT Medication Instructions ---
Medication Instructions Date of Service March 25, 2022 Home Medications Medication Instructions Recorded amlodipine 5 mg tablet (Norvasc) 5 mg PO QAM #90 tabs 07/09/21 amoxicillin 500 mg tablet 2,000 mg PO UD PRN prophylaxis #4 11/12/21 tabs atorvastatin 20 mg tablet (Lipitor) 20 mg PO QPM #90 tabs 01/21/22 ascorbic acid (vitamin C) 500 mg tablet 1,000 mg PO QPM coenzyme Q10 100 mg capsule (CoQ-10) 100 mg PO QAM Centrum Silver Men 1 tab PO PM aspirin 81 mg tablet,delayed release 81 mg PO PM cholecalciferol (vitamin D3) 50 mcg (2,000 unit) capsule (Vitamin D3) 50 mcg PO QAM meloxicam 15 mg tablet (Mobic) 15 mg PO UD PRN Pain amlodipine 5 mg tablet (Norvasc) 5 mg PO QAM amoxicillin 500 mg tablet 2,000 mg PO UD PRN prophylaxis atorvastatin 20 mg tablet (Lipitor) 20 mg PO QPM Continue as directed amoxicillin 500 mg tablet 2,000 mg PO UD PRN prophylaxis (if needed- prior to dental procedures) ASK your surgeon for instructions meloxicam 15 mg tablet (Mobic) 15 mg PO UD PRN Pain DO NOT take the morning of surgery cholecalciferol (vitamin D3) 50 mcg (2,000 unit) capsule (Vitamin D3) 50 mcg PO QAM Take morning of surgery With a small sip of water, OTHERWISE NOTHING TO EAT OR DRINK AFTER MIDNIGHT: amlodipine 5 mg tablet (Norvasc) 5 mg PO QAM Take evening before surgery ascorbic acid (vitamin C) 500 mg tablet 1,000 mg PO QPM Centrum Silver Men 1 tab PO PM aspirin 81 mg tablet,delayed release 81 mg PO PM (continue as normal unless told otherwise by surgeon) atorvastatin 20 mg tablet (Lipitor) 20 mg PO QPM Other Notes If you have any questions please call us at [phone] or [phone] or [phone] or [phone]
--- NOTE | 2022-05-29 11:18 | Anesthesiology Consultation ---
Date of Service May 29, 2022 Assessment & Plan (1) Encounter for pre-operative examination: - COVID screening: Per assessment on 05/29: No known COVID-19 positive contacts or current COVID-19 related symptoms. Travel screen negative. Patient vaccinated. At surgeon discretion if preop Covid testing being done. - S/P Left TKA (06/02/20): SAB x1 attempt + PNB at [facility], [place]. No issues noted per post- op anesthesia progress note. - Hx glidescope intubation: Open Ventral Hernia Repair (04/20/21): Grade 2 view, Glidescope#4, ETT 8.0, atraumatic at [facility]. No issues noted per post-op anesthesia progress note. - Outpatient joint assessment: Pt currently scheduled for inpatient pathway. If surgeon requests review for outpatient joint pathway, patient is not recommended candidate for outpatient joint program from anesthesia standpoint. Chart Review Chart Review: Acceptable Risk for Surgery and Patient seen in Pre Admission Testing Teaching & Discussion Pre-Anesthesia Teaching/Discussion Notes: Instructed NPO after midnight before surgery,except medications with 15 cc of water. Medication instructions provided according to the PAT guidelines. History Surgery Operation Date: 06/14/22 12:50 Proposed Procedures p Right Total Knee Arthroplasty - Clement Javed DO Height/Weight Height: 5 ft 10 in Weight: 121.8 kg Allergies Allergy/AdvReac Type Severity Reaction Status Date / Time No Known Allergies Allergy Mild Verified 05/21/22 11:07 Medications Home Medications Medication Instructions Recorded Confirmed Last Taken ascorbic acid (vitamin C) 500 mg 1,000 mg PO QPM 02/09/19 05/21/22 09/24/21 tablet coenzyme Q10 100 mg capsule 100 mg PO QAM 03/01/20 05/21/22 09/24/21 (CoQ-10) egbterrs-vja-grsaj acid 300 1 tab PO PM 05/17/20 05/21/22 09/24/21 mcg-lycopene 600 mcg-lutein 300 mcg tablet (Centrum Silver Men) aspirin 81 mg tablet,delayed 81 mg PO PM 09/14/20 05/21/22 09/24/21 release cholecalciferol (vitamin D3) 50 50 mcg PO QAM 09/14/20 05/21/22 09/24/21 mcg (2,000 unit) capsule (Vitamin D3) meloxicam 15 mg tablet (Mobic) 15 mg PO UD PRN Pain 04/12/21 05/21/22 04/16/21 amlodipine 5 mg tablet (Norvasc) 5 mg PO QAM #90 tabs 07/09/21 05/21/22 09/25/21 amoxicillin 500 mg tablet 2,000 mg PO UD PRN prophylaxis #4 11/12/21 05/21/22 Unknown tabs atorvastatin 20 mg tablet (Lipitor) 20 mg PO QPM #90 tabs 01/21/22 05/21/22 Unknown Past Medical History Medical History History of atrial fibrillation Remote episodic history (age 28)- was put on Digoxin for some time, but then changed PCPs and new PCP did event monitor (which showed no episodes of a. fib) so PCP discontinued digoxin, no issues since History of prostate cancer dx 2010, s/p prostactectomy, no chemo or xrt History of skin cancer precancerous s/p excision (head) History of stroke CVA vs. TIA (associated with single episode of a. fib at age 28) Hyperlipidemia Hypertension Obesity Osteoarthritis Seasonal allergies Sleep apnea CPAP (non-compliant) Exercise / Class Metabolic Activity III < 4 Walking/Shop/Light housework (one FS (no CP, + SOB)) Past Family History Family History Father Alzheimer disease Mother Suicide Other No family history of adverse response to anesthesia Prostate cancer Past Surgical History Surgical History Difficult airway for intubation Open Ventral Hernia Repair (04/20/21): Grade 2 view, Glidescope#4, ETT 8.0, atraumatic at [facility]. No issues noted per post-op anesthesia progress note. H/O lumbar discectomy H/O ventral hernia repair Open Ventral Hernia Repair (04/20/21): Grade 2 view, Glidescope#4, ETT 8.0, atraumatic at [facility]. No issues noted per post-op anesthesia progress note. 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 No issues noted per post-op anesthesia progress note. Hx of appendectomy Hx of colonoscopy Hx of prostatectomy Hx of umbilical hernia repair [place] teeth removed Past Anesthesia History No Hx of Anesthesia Complications and No Family Hx of Anesthesia Complications History of PONV No Hx of PONV and No Hx of Motion Sickness Social History tobacco type: cigars Do You Dip or Chew Tobacco: No Smoking End Date: Quit 10+ years ago (hx a few cigars/day) Hx Alcohol Use: No Hx Substance Use: No substance use type: does not use Review of Systems Patient denies chest pain, shortness of breath, fever, chills, cough, wheezing, palpitations. Physical Exam Vital Signs VITALS BP 100/58 P 78 TEMP WNL SP02 98%RA RESP 18 PHYSICAL Full cervical extension range of motion. Full TMJ range of motion. TMD 3.5 finger breaths Mallampati Score 1 Dentition: missing molars Lungs: clear throughout to auscultation Cardiac: regular rate and rhythm, no murmurs noted Spine: normal Carotid arteries: negative bruit Extremities: no edema Lab Results Anesthesia Preop Results Results Anesthesia Widget: WBC 8.46 K/ul (4.8-10.8) 05/29/22 Hgb 15.4 g/dl (14.0-18.0) 05/29/22 Hct 45.8 % (42.0-52.0) 05/29/22 Plt 198 K/uL (130-400) 05/29/22 Na 139 mmol/L (136-145) 05/29/22 K 4.3 mmol/L (3.5-5.1) 05/29/22 Cl 103 mmol/L (98-107) 05/29/22 CO2 30 mmol/L (21-32) 05/29/22 BUN 26 mg/dl (6-23) H 05/29/22 Creat 0.90 mg/dl (0.6-1.4) 05/29/22 Glucose Level 91 mg/dl (70-99(Fasting)) 05/29/22 PT 10.9 Seconds (9.0-12.0) 05/29/22 PTT 25.9 Seconds (21.0-31.0) 05/29/22 INR 1.0 (0.9-1.1) 05/29/22 Blood Type O Positive 05/29/22 Antibody Screen NEGATIVE 05/29/22 Testing Electrocardiogram Date: 05/29/22 NSR at 74bpm. LAD. Chest X-Ray Date: 05/29/22 FINDINGS: Right shoulder reverse arthroplasty is seen. The cardiomediastinal silhouette is normal. Elevation of the left hemidiaphragm is noted. No evidence of pleural effusion or pneumothorax. Degenerative changes are seen in the spine. IMPRESSION: Elevation of the left hemidiaphragm without evidence of acute abnormality. Echocardiogram Date: 05/28/17 EF 60 to 65%. No regional motion abnormality. Type I diastolic dysfunction. Mild mitral valve leaflet calcifications noted with mild mitral annular calcification. COVID-19 Risk Screen Screening Information COVID-19 Screen Date: 05/29/22 Exposure 21 Days Family/Household +COVID Last 21 Days: No Exposure 10 Days Any COVID Exposure Last 10 Days: No Symptoms Last 10 Days Experienced COVID Sx Last 10 Days: No + COVID 0-90 Days COVID + in Last 0-90 Days: No
[~2022-06-14 06:32] MED LIST changes: -CEFAZOLIN 2000MG 2,000 MG/15 ML SYR IV SCH; -LR 15ML/HR IV SCH; +ORTHO JOINT MIX INFIL SCH; -ROPIVACAINE 0.5% HCL/PF 150 MG, BUPIVACAINE 0.5% MPF 30 ML, EPINEPHrine 30MG/30ML (OR U... INFIL SCH; +ceFAZolin 2000MG 2,000 MG/15 ML SYR IV SCH
--- NOTE | 2022-06-14 06:34 | History & Physical Bridge Note ---
Date of Service June 14, 2022 History & Physical Bridge Note I have examined the patient, reviewed the History & Physical and in the interval since the performance of the History & Physical I have noted the following changes of clinical significance: no changes noted
[2022-06-14] MEDS ORDERED: fentaNYL citrate PF 100 MCG/2 ML VIAL ONE (07:01)
[2022-06-14] MEDS ORDERED: MIDAZOLAM HCL 1 MG/ML 2ML VIAL ONE ×2 (07:01→08:38)
[2022-06-14] MEDS ORDERED: PROPOFOL IV EMULSION 10 MG/ML 20 ML VIAL IV ONE ×2 (07:03→08:21)
[2022-06-14] MEDS ORDERED: ONDANSETRON INJ 2 MG/ML 2 ML VIAL IV PRN ×2 (07:07→10:52)
[2022-06-14] MEDS ORDERED: ROPIVACAINE 0.5% 5 MG/ML 30 ML VIAL ONE (07:07)
[2022-06-14] MEDS ORDERED: ATROPINE SULFATE 0.1 MG/ML 10ML SYR IV PRN (07:07)
[2022-06-14] MEDS ORDERED: fentaNYL citrate PF 100 MCG/2 ML VIAL IV PRN (07:07)
[2022-06-14] MEDS ORDERED: ePHEDrine sulfate 50 MG/ML AMP IV PRN (07:07)
[2022-06-14] MEDS ORDERED: BUPIVACAINE 0.5 % 5 MG/1 ML PF 10ML VIAL ONE (07:07)
[2022-06-14] MEDS ORDERED: ORTHO JOINT ANESTHETIC ONE (07:19)
[2022-06-14] MEDS ORDERED: KETAMINE 50 MG/5 ML SYRINGE ONE (08:29)
[2022-06-14] MEDS ORDERED: ceFAZolin 330 MG/ML 1 GM VIAL ONE (08:35)
--- NOTE | 2022-06-14 09:31 | Operative Report ---
PG Post Operative Report Pre & Post Diagnosis Operation Date: 06/14/22 10:30 Pre-Op Diagnosis: DJD Right Knee Post-Op Diagnosis: DJD Right Knee I identified the patient and participated in the time-out.: Yes Procedure Operation Date: 06/14/22 10:30 Actual Procedures p Right Total Knee Arthroplasty(Right) - Clement Javed DO Surgeon Clement Javed DO Patternmaker Grader Clement Esposito PA-C Estimated Blood Loss 30 Findings Consistent with Post-Op Diagnosis Specimens Right femoral tibial bone Description of Procedure Implants used: I used a Blake Persona total knee arthroplasty system with a size 7 PS femur, F tibia, 34 oval patella, and a size 14 CPS polyethylene bearing. All components were cemented in place with Biomet cement. True arrived [facility] for the above procedure. He was seen in the preoperative holding area and the operative extremity was identified and signed. He was given a preoperative antibiotic, TXA, a spinal anesthetic and an adductor nerve block. He was taken back to the operating room and laid on the table in supine position. He was given basic sedation. The operative knee was then prepped and draped in sterile fashion. A timeout was done, and the patient and the operative extremity was properly identified. A midline incision was made directly over the patella. Dissection was taken down to the extensor mechanism. A midvastus arthrotomy was used. The medial retinaculum was released and the fat pad was mostly excised. The knee was flexed and the ACL, PCL, and meniscus were removed. A drill was sent down the center of the femoral canal followed by an intramedullary osmany. Off that osmany a distal femoral cutting block was placed. 9 mm was resected off the distal femur at 5 of valgus. A posterior referencing AP sizing guide was then placed on the distal femur. The femur measured to be a size 7. 2 drill holes were placed in 3 of external rotation. A 4-in-1 cutting block was then impacted into place. Anterior, posterior, and chamfer cuts were then made. The proximal tibia was then exposed. An external tibial alignment guide was placed. A tibial cut guide was then anchored in place and the proximal tibia was then resected. The posterior aspect of the knee was then opened up and any additional meniscus fragments and osteophytes were removed. The tibia measured to be a size F. The tibial plate was then placed in the appropriate rotation and the tibia was drilled and punched. Trial components were then placed. I used a size 14 CPS polyethylene insert. The knee was brought through a full range of motion and felt to be stable. The peg holes for the femoral component were then drilled. The patella was then everted and 9 mm was resected off the posterior aspect of the patella. The patella measured to be a size 34 oval. 3 peg holes were then drilled. A trial patella was placed. The knee was once again brought through a full range of motion and felt to be stable. Trial components were then removed. The surrounding soft tissues were injected with 100 cc of an orthopedic pain control cocktail. All components were then cemented into place with Biomet cement. The final polyethylene insert was then snapped into place. Once cement was dry the tourniquet was deflated. Hemostasis was obtained. A dilute betadyne lavage was then done for 3 minutes. The joint was then irrigated with normal saline solution. The midvastus arthrotomy was then closed with #1 Vicryl suture. The skin was closed with 2-0 Vicryl, 3-0V lock suture, and rogelio. A soft compressive dressing was placed. He was then transferred to a hospital bed and taken to the postanesthesia care unit in stable condition. He tolerated the procedure well. Clement Esposito PA-C, was present for the entire procedure. He was critical for patient positioning, prepping, draping, retraction exposure, wound closure and application of sterile dressing. I attest to the content of the Intraoperative Record and any orders documented therein. Any exceptions are noted below.
[2022-06-14] MEDS ORDERED: NALOXONE HCL 0.4 MG/1 ML VIAL/CARP IV PRN (10:52)
[2022-06-14] MEDS ORDERED: HYDROmorphone INJ 0.5 MG/0.5 ML SYR IV PRN (10:52)
[2022-06-14] MEDS ORDERED: bisacodyL 10 MG SUPP PR PRN (10:52)
[2022-06-14] MEDS ORDERED: oxyCODONE HCL IR 5 MG TAB (IMMEDIATE RELEASE) PO PRN (10:52)
[2022-06-14] MEDS ORDERED: METOCLOPRAMIDE HCL INJ 5 MG/ML 2 ML VIAL IV PRN (10:52)
[2022-06-14] MEDS ORDERED: MAGNESIUM HYDROXIDE SUSP 30 ML UDC PO PRN (10:52)
--- NOTE | 2022-06-14 10:52 | Anesthesiology Progress Note ---
Date of Service June 14, 2022 Anesthesia Post Procedure Vital Signs Vital Signs: Temp Pulse Resp BP Pulse Ox O2 Del Method O2 Flow Rate 06/14/22 10:20 97.9 F 66 18 108/69 95 Room Air 06/14/22 10:10 69 20 109/70 95 Room Air 06/14/22 10:00 62 18 116/65 100 Oxymask 5 06/14/22 09:51 97.9 F 70 18 111/68 99 Oxymask 5 06/14/22 07:01 97.9 F 82 20 139/92 95 Room Air Transfer of Care Handoff Completed per policy Notes Mental Status: alert / awake / arousable and participated in evaluation Patient Amnestic to Procedure: Yes Nausea / Vomiting: adequately controlled Pain: adequately controlled Airway Patency, RR, SpO2: stable & adequate BP & HR: stable & adequate Hydration State: stable & adequate Neuraxial Anesthesia: was administered and sensory block is resolving Anesthetic Complications: no major complications apparent and Pt Satisfied with anesthetic care
[2022-06-14] MEDS: SODIUM CHLORIDE 0.9% 1000ML 1,000 ML IV SCH ×2 (11:13→21:41)
[2022-06-14] MEDS: KETOROLAC TROMETHAMINE 15 MG/ML VIAL IV SCH ×3 (11:45→23:51)
--- NOTE | 2022-06-14 12:09 | XRay Report ---
RIGHT KNEE 2 VIEWS History: Right total knee arthroplasty. Degenerative arthritis. Postop. FINDINGS: The patient is status post a right total knee arthroplasty. The hardware is intact. No frac ture or dislocation. Skin rogelio are in place. IMPRESSION: Right total knee arthroplasty. No evidence for hardware complication. ACT 112: Negative or not required by law. Electronically signed by: Ramon Duran M.D. 06/14/2022 12:08 PM
[2022-06-14] MEDS: ACETAMINOPHEN 500 MG TAB PO SCH ×2 (13:19→21:45)
[2022-06-14] MEDS: ceFAZolin 2000MG 2,000 MG/15 ML SYR IV SCH ×2 (16:03→23:52)
[2022-06-14] MEDS ORDERED: SENNA 8.6 MG TAB PO SCH (21:00)
[2022-06-14] MEDS ORDERED: ATORVASTATIN 20 MG TAB PO SCH (21:00)
[2022-06-14] MEDS: ASPIRIN 81 MG ECTAB PO SCH (21:42)
[2022-06-14] MEDS: CLOTRIMAZOLE/BETAMETHASONE CR 15 GM TUBE EXT SCH (21:44)
[2022-06-14] MEDS: DOCUSATE SODIUM 100 MG CAP PO SCH (21:45)
[2022-06-15] MEDS: KETOROLAC TROMETHAMINE 15 MG/ML VIAL IV SCH ×2 (05:53→10:22)
[2022-06-15] MEDS: ACETAMINOPHEN 500 MG TAB PO SCH ×2 (05:53→12:58)
--- NOTE | 2022-06-15 06:16 | Orthopedic Progress Note ---
Date of Service June 15, 2022 Assessment & Plan (1) Status post right knee replacement: Overall he is doing fairly well. Is not having much pain in the right knee. He will be seen by physical therapy today for ambulation and range of motion exercises. The nursing staff can change his dressing after physical therapy. He is on aspirin for DVT prophylaxis. He can be discharged home later today. He will follow-up with orthopedics in 2 weeks. Graham Biswas was seen and examined at bedside this morning. Overall he is doing very well. Is not having much pain in the right knee. He has been up and ambulating to the bathroom. He has no complaints.. Review of Systems All systems reviewed & are unremarkable except as noted in HPI & below. Physical Exam On physical examination of the right knee, the dressing is clean and dry. His leg is out full extension. He has active dorsiflexion plantarflexion of his right ankle.. Results & Data Results & Data Laboratory Results . Diagnostic Findings Postoperative x-rays of the right knee show the prosthesis to be in anatomic alignment without any evidence of fracture, education, or loosening. PG Care Time/CCT Total # of Minutes Spent Total Time Spent with Patient: Total time spent is greater than 50% in coordination of care (as documented) at patient's floor/unit and/or counseling patient: Coding Level of Care Code 22345 Post Operative Follow-Up Diagnoses Status post right knee replacement Z96.651
--- NOTE | 2022-06-15 06:17 | Discharge Summary ---
Date of Service June 15, 2022 Principal Diagnosis Same as "Discharge Diagnosis" noted below under Discharge Instructions. Discharge Exam On physical examination of the right knee, the dressing is clean and dry. His leg is out full extension. He has active dorsiflexion plantarflexion of his right ankle.. Discharge Data Procedures Performed Operation Date: 06/14/22 10:30 Actual Procedures p Right Total Knee Arthroplasty(Right) - Clement Javed DO Ordered Studies 06/14/22 05:00 US - OR guided needle placemen Routine Hospital Course (1) Status post right knee replacement: On June 14, 2022 True arrived at [facility] and underwent a right knee replacement without complication. He had a spinal anesthetic. Postoperatively he was started on aspirin for DVT prophylaxis and transferred to the general orthopedic floors. His hospital course was uneventful. On postop day #1, his vital signs were stable and his pain was well controlled. He was able to participate well with physical therapy doing ambulation and range of motion exercises. He was then discharged home. He will follow-up with orthopedics in 2 weeks. PG Care Time/CCT Total # of Minutes Spent Total Time Spent with Patient: Total time spent is greater than 50% in coordination of care (as documented) at patient's floor/unit and/or counseling patient: Discharge Plan Discharge Items Patient Disposition: Home - Home Health Services Reason For Visit: DJD Right Knee Discharge Diagnosis: Right knee replacement Activity: Per Instructions section Non-emergency contact: Surgeon Call non-emergency contact if: your wound has increased redness and your wound has increased drainage Follow-up/Referrals: Ramsey Mesa MD [Primary Care Provider] - Diet: Regular Addtl Attending Provider Instructions: Activity and Therapy Recommendations: * If you are using [facility] then therapy will be provided at your home until they feel you have accomplished all of your goals. * If you are using [facility] then Physical Therapy will be provided until they feel you are ready to start Outpatient Physical Therapy. * If you are not using home therapy then Outpatient Physical Therapy should start about 3-5 days from your day of surgery. Therapy will last about 6-10 weeks * It is important not to put a pillow under your knee when you are relaxing or sleeping. It is just as important to make sure you are getting your knee perfectly straight as it is to regain your knee bend. * You were shown a series of exercises in the hospital. Do these exercises three times each day including the exercises you were shown in physical therapy. * Get up and walk several times each day. For the first four weeks, try not to stand or walk for more than one hour at a time. If you do stand or walk for more than one hour, you will not hurt anything, but your leg will likely swell. * As you feel comfortable, you may change from the walker or crutches to a cane and then to independent walking. Medications: * Narcotic You will likely be sent home from the hospital with a prescription for the narcotic pain medication that worked best throughout your stay. * Aspirin Most patients will be required to take Aspirin 81mg twice a day for 6 weeks after surgery. This is obtained [id number] and a prescription is not necessary. * Other medications may be prescribed for specific circumstances. If you have any questions, please call the office at . * Resume previous home medications unless otherwise instructed TEDs/Elastic Stockings: The white elastic stockings help limit swelling and prevent blood clots from forming in your legs.~ The more you wear them, the more they work. Wear them for six weeks. Dressing Care: The dressing can be changed after physical therapy on postop day #1. Daily dry dressing changes for a few days, especially if the incision is still draining some. If the incision is not draining then you may leave the rogelio open to air. If there is a little bit of drainage or if the rogelio are getting stuck on your clothing then cover the incision with a dry dressing. The rogelio will be removed at your 2 week follow-up appointment. Showering: You may shower 5 days from the day of surgery as long as the incision is no longer draining. You may shower with the rogelio exposed. Let soapy water run over the rogelio and pat them dry. Do not scrub or soak the incision. Things To Watch For: * Drainage from the incision site that occurs more than one week after your surgery. * Increased redness at the incision site. * Fever above 102 degrees Fahrenheit. * Unusual chest pain or shortness of breath. * Call [facility] at with any of the above pro blems Follow-Up Visit: Follow-up with Dr. Javed's PA (Clement Esposito) 2-3 weeks after your day of surgery. He will remove your rogelio and answer any questions. If you have any additional questions or concerns, Dr Javed is usually in the office at the same time and will be available An appointment was probably scheduled when you signed-up for surgery in the office. If you have any questions call Office Instructions: More detailed instructions as well as Frequently Asked Questions were provided in a folder by our office when you signed-up for surgery. Please review these instructions when you get home. If you have any further questions or concerns, please feel free to call the office at [phone] Pending Studies at Discharge: No Stand-Alone Forms: My 2Checkout, Smoking Cessation Medications and DC Order Prescriptions: New oxycodone-acetaminophen 5-325 mg tablet 1 tab PO Q6H PRN (Reason: pain) Qty: 30 0RF Continued amlodipine [Norvasc] 5 mg tablet 5 mg PO QAM Qty: 90 3RF atorvastatin [Lipitor] 20 mg tablet 20 mg PO QPM Qty: 90 3RF ascorbic acid (vitamin C) 500 mg tablet 1,000 mg PO QPM clotrimazole-betamethasone 1-0.05 % cream 1 applic topical BID 14 Days Qty: 45 0RF Centrum Silver Men 300-600-300 mcg Tablet 1 tab PO PM cholecalciferol (vitamin D3) [Vitamin D3] 50 mcg (2,000 unit) capsule 50 mcg PO QAM Patient Comments: bottle says with calcium 75 mg coenzyme Q10 [CoQ-10] 100 mg capsule 100 mg PO QAM meloxicam [Mobic] 15 mg tablet 15 mg PO UD PRN (Reason: Pain) Patient Comments: none for a few weeks Changed aspirin 81 mg tablet,delayed release (/EC) 81 mg PO BID 42 Days Qty: 0 0RF Admission Data Admit Date/Time: 06/14/22 09:55 Attending Provider: Clement Javed Admit Provider: Clement Javed Primary Care Provider: Ramsey Mesa
[2022-06-15 08:00] VITALS: TEMP 97.7
[2022-06-15] MEDS ORDERED: dexAMETHasone 4 MG TAB PO SCH (08:00)
[2022-06-15] MEDS ORDERED: amLODIPine BESYLATE 5 MG TAB PO SCH (09:00)
[2022-06-15] MEDS ORDERED: MULTIVITAMIN TAB PO SCH (09:00)
[2022-06-15] MEDS: ASPIRIN 81 MG ECTAB PO SCH (09:05)
[2022-06-15] MEDS: DOCUSATE SODIUM 100 MG CAP PO SCH (09:05)
[2022-06-15] MEDS: CLOTRIMAZOLE/BETAMETHASONE CR 15 GM TUBE EXT SCH (09:06)
[2022-06-15 11:42] VITALS: BP 168/90; PULSE 83; O2SAT 95
== END 2022-06-15 13:56 | disposition home health service (06) ==
LOC: ASU 06:32 → 3E 06:32

== ENCOUNTER 2022-08-05 23:40 | Observation (INO) ==
[2022-08-05] MEDS ORDERED: SODIUM CHLORIDE 0.9% 1000ML 1,000 ML IV SCH (23:45)
[2022-08-05] MEDS ORDERED: CEFEPIME 2,000 MG/20 ML VIAL IV STA (23:47)
--- NOTE | 2022-08-05 23:55 | Emergency Department Note ---
Impression & Plan Pneumonia, Hypoxia ED Provider Note INFORMANT: Patient ED PROVIDER(S): Dheeraj Lira DO CHIEF COMPLAINT: Cough and shortness of breath PLAN: Disposition: Admission Outpatient prescription management: none Discussion with: I spoke with the hospitalist, who will see the patient for admission/observation and further evaluation and consultation. MEDICAL DECISION MAKING: This is a 76-year-old male who presents to the ED with a chief complaint of a cough that he has had for the past couple weeks. The patient's cough is progressively worsened over that period of time. Tonight he was feeling increasingly short of breath and could not stop coughing and called EMS. They found him to have a fever 103 and hypoxic with 88% saturations on room air. He does not use home oxygen. In route here he was given a DuoNeb treatment x2 as well as Tylenol 1 g p.o. He was also given a 500 cc lactated ringer bolus. The patient does have some mild lower extremity edema which has been present for about a month. No history of pulmonary edema. The patient states that his co ugh is mostly nonproductive. His symptoms are worse with exertion. The patient does have some crackles in the right base. He is a little tachypneic on exam. No retractions. Speaks full sentences. Abdomen is soft and nontender. There is some mild pitting bilateral pedal edema. He is wearing compression stockings. A chest x-ray suggest bilateral lower lobe infiltrates. White blood cell count is 14. Nasal swab was positive for the rhinovirus. Chemistry panel did not show any concerning abnormality. No significant electrolyte abnormality. Lactic acid is 2.5. Troponin is negative. The patient was treated empirically with IV cefepime and some IV fluids. Additional IV fluids was not administered because his blood pressure responded appropriately. The patient does require couple liters of oxygen to maintain saturations above 90%. He will be seen by the hospitalist for further evaluation and care. Triage Nursing notes reviewed. Vital Signs: reviewed Prior /Outside records reviewed: none Differential diagnosis: The differential was considered includes acute myocardial infarction, acute coronary syndrome, myocarditis, pericarditis, pulmonary embolism, pneumonia, pneumothorax, cardiomyopathy, congestive heart, anemia , COPD/asthma exacerbation. Diagnostics, as interpreted by me: 12 lead ECG: Sinus tach 117. No ST elevation. No PVCs. Normal QTc. Cardiac Monitoring ordered: Sinus rhythm in the 90s. Medical decision rules: [none] Imaging studies: chest x-ray: Bilateral lower lobe infiltrates. Procedures: none. Critical care: none. HPI: See MDM above. PAST MEDICAL HISTORY: See Below PAST SURGICAL HISTORY: See Below SOCIAL HISTORY: See Below HOME MEDICATIONS:See Below ALLERGIES: See Below VITALS: See Below PHYSICAL EXAMINATION: See MDM for positive findings otherwise unremarkable. CONSTITUTIONAL/VITAL SIGNS: Reviewed GENERAL:done as appropriate INTEGUMENTARY: done as appropriate HEAD: done as appropriate EYES: done as appropriate RESPIRATORY: done as appropriate CARDIOVASCULAR:done as appropriate GI/ABDOMEN:done as appropriate EXTREMITIES: done as appropriate NEUROLOGICAL: done as appropriate PSYCHIATRIC:done as appropriate MUSCULOSKELETAL:done as appropriate TRIAGE NURSING DOCUMENTATION REVIEWED. Past Med/Surg History Medical History History of atrial fibrillation Remote episodic history (age 28)- was put on Digoxin for some time, but then changed PCPs and new PCP did event monitor (which showed no episodes of a. fib) so PCP discontinued digoxin, no issues since History of prostate cancer dx 2010, s/p prostactectomy, no chemo or xrt History of skin cancer precancerous s/p excision (head) History of stroke CVA vs. TIA (associated with single episode of a. fib at age 28) Hyperlipidemia Hypertension Obesity Osteoarthritis Seasonal allergies Sleep apnea CPAP (non-compliant) Surgical History Difficult airway for intubation Open Ventral Hernia Repair (04/20/21): Grade 2 view, Glidescope#4, E[place] 8.0[place] [facility] [place] No issues noted per post-op anesthesia progress note. H/O lumbar discectomy H/O ventral hernia repair Open Ventral Hernia Repair (04/20/21): Grade 2 view, Glidescope#4, ETT 8.0[place] [facility] [place] No issues noted per post-op anesthesia progress note. 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 No issues noted per post-op anesthesia progress note. Hx of appendectomy Hx of colonoscopy Hx of prostatectomy Hx of umbilical hernia repair [place] teeth removed Family History Father Alzheimer disease Mother Suicide Grandmother Myocardial infarction Other No family history of adverse response to anesthesia Prostate cancer Denies family history of Ovarian cancer Breast cancer Colorectal cancer Social History Smoking Status: Former smoker Tobacco Type: Cigars Age Started Using Tobacco: 15; Age Quit Using Tobacco: 54; packs per day: 5; Second Hand Exposure: No; Do You Dip or Chew Tobacco: No; Hx Alcohol Use: No Hx Substance Use: No Preferred Language: Nicaraguan Communication Ability: Effective Visual Impairment: No Limitations Hearing Ability: Normal Hardwood Sawyer Required: No Beliefs That Will Affect Care: None marital status: Current Living Situation: Spouse current occupational status: employed and retired current occupation: [employer] Driver Feels Safe at Home: Yes Childhood Exposure to Second-Hand Smoke: No Diet: regular caffeine: Yes during the past year weight has: remained stable Dental Care, Regularly: Yes Physical Activity Frequency: Does not Exercise Seatbelt Use: always Sunscreen Use: Yes Do you think of yourself as: straight/heterosexual Assistive Devices: Walker Allergies Allergies Allergy/AdvReac Type Severity Reaction Status Date / Time No Known Allergies Allergy Mild Verified 08/06/22 00:11 Home Meds Home Medications Medication Instructions Recorded Confirmed ascorbic acid (vitamin C) 500 mg 500 mg PO QPM 02/09/19 08/06/22 tablet coenzyme Q10 100 mg capsule 100 mg PO QAM 03/01/20 08/06/22 (CoQ-10) yypihwnf-bpf-nqgzd acid 300 1 tab PO PM 05/17/20 08/06/22 mcg-lycopene 600 mcg-lutein 300 mcg tablet (Centrum Silver Men) cholecalciferol (vitamin D3) 50 50 mcg PO QAM 09/14/20 08/06/22 mcg (2,000 unit) capsule (Vitamin D3) aspirin 81 mg tablet,delayed 81 mg PO QAM 08/06/22 08/06/22 release clotrimazole-betamethasone 1 1 applic topical BID PRN Skin 08/06/22 08/06/22 %-0.05 % topical cream Irritation meloxicam 15 mg tablet 15 mg PO DAILY PRN Pain 08/06/22 08/06/22 Previous Rx's Medication Instructions Recorded atorvastatin 20 mg tablet (Lipitor) 20 mg PO QPM #90 tabs 01/21/22 oxycodone-acetaminophen 5 mg-325 1 tab PO Q6H PRN pain #30 tabs 06/15/22 mg tablet amlodipine 5 mg tablet (Norvasc) 5 mg PO QAM #90 tabs 07/02/22 Results & Data (ED) Vital Signs Vital Signs - 24 hr 08/05/22 23:40 08/06/22 00:06 08/05/22 23:48 Temperature 39.3 C H Temperature Source Oral Pulse Rate 107 H 106 H Respiratory Rate 24 Respiratory Effort / Characteristics Non-Labored Spontaneous Respiratory Depth Normal Blood Pressure 178/78 H Blood Pressure Mean 111 Pulse Oximetry 92 91 Oxygen Delivery Method Room Air Room Air Oxygen Flow Rate Sepsis Recent Fever Within 48 Hours Yes Sepsis New/Unexplained Change in Mental Status N/A Sepsis Action Taken by Nursing Physician Notified Pulse Oximetry Post Tiitration 08/06/22 00:00 08/06/22 00:40 08/06/22 01:00 Temperature 38.7 C H Temperature Source Pulse Rate 105 H 96 H 97 H Respiratory Rate 24 22 24 Respiratory Effort / Characteristics Respiratory Depth Blood Pressure 167/121 H 137/76 125/65 Blood Pressure Mean 136 96 85 Pulse Oximetry 92 92 92 Oxygen Delivery Method Oxygen Flow Rate Sepsis Recent Fever Within 48 Hours Sepsis New/Unexplained Change in Mental Status Sepsis Action Taken by Nursing Pulse Oximetry Post Tiitration 08/06/22 01:15 08/06/22 01:36 Temperature Temperature Source Pulse Rate 89 Respiratory Rate 22 Respiratory Effort / Characteristics Respiratory Depth Blood Pressure 133/60 Blood Pressure Mean 84 Pulse Oximetry 88 L 93 Oxygen Delivery Method Nasal Cannula Nasal Cannula Oxygen Flow Rate 2 2 Sepsis Recent Fever Within 48 Hours Sepsis New/Unexplained Change in Mental Status Sepsis Action Taken by Nursing Pulse Oximetry Post Tiitration 94 Laboratory Data 08/06/22 00:28 08/06/22 00:28 Lab Results 08/05/22 08/06/22 08/06/22 Range/Units 23:55 00:28 00:28 WBC 14.35 H (4.8-10.8) K/ul RBC 4.54 L (4.70-6.10) M/uL Hgb 13.1 L (14.0-18.0) g/dl Hct 37.7 L (42.0-52.0) % MCV 83.0 (80.0-100.0) fL MCH 28.9 (25.0-34.0) pg MCHC 34.7 (32.0-36.0) g/dL RDW Std Deviation 41.3 (36.4-46.3) fL RDW Coeff of Gavino 13.7 (11.5-14.5) % Plt Count 189 (130-400) K/uL MPV 10.3 (9.4-12.4) fL Immature Gran % (Auto) 0.3 % Neut % (Auto) 90.7 % Lymph % (Auto) 3.2 % [place] % (Auto) 5.6 % Eos % (Auto) 0.0 % Baso % (Auto) 0.2 % Neut # (Auto) 13.01 H (1.40-6.50) K/uL Lymph # (Auto) 0.46 L (1.2-3.4) K/uL [place] # (Auto) 0.81 H (0.11-0.59) K/uL Eos # (Auto) 0.00 (0-0.50) K/uL Baso # (Auto) 0.03 (0-0.2) K/uL Immature Gran # (Auto) 0.04 (0.01-0.20) K/uL PT (9.0-12.0) Seconds INR (0.9-1.1) APTT (21.0-31.0) Seconds PTT Ratio Sodium 134 L (136-145) mmol/L Potassium 3.9 (3.5-5.1) mmol/L Chloride 101 (98-107) mmol/L Carbon Dioxide 22 (21-32) mmol/L Anion Gap 11 (3-11) BUN 26 H (6-23) mg/dl Creatinine 0.92 (0.6-1.4) mg/dl Est Cr Clr Drug Dosing 89.7 ml/min Est GFR ( Amer) 92.7 ml/min Est GFR (Non-Af Amer) 79.9 ml/min BUN/Creatinine Ratio 28.3 H (10-20) Glucose 154 H (70-99(Fasting)) mg/dl Lactate (0.4-2.0) mmol/L Calcium 8.6 (8.6-10.3) mg/dl Magnesium 1.4 L (1.7-2.4) mg/dl Total Bilirubin 1.4 H (0.2-1.0) mg/dl Direct Bilirubin 0.1 (0-0.2) mg/dl AST 18 (13-39) U/L ALT 14 (7-52) U/L Alkaline Phosphatase 62 (34-104) U/L Troponin I High Sens 11.5 (0-20) pg/ml Total Protein 6.4 (6.0-8.3) gm/dl Albumin 3.6 (3.4-5.0) gm/dl Procalcitonin (0-0.5) ng/ml Adenovirus (PCR) Not Detected (NotDetected) B. pertussis DNA (PCR) Not Detected (NotDetected) B.parapertussis DNA PCR Not Detected (NotDetected) C. pneumoniae DNA (PCR) Not Detected (NotDetected) Coronavirus OC43 (PCR) Not Detected (NotDetected) Coronavirus HKU1 (PCR) Not Detected (NotDetected) Coronavirus 229E (PCR) Not Detected (NotDetected) SARS-CoV-2 (PCR) Not Detected (NotDetected) Coronavirus NL63 (PCR) Not Detected (NotDetected) Human Metapneumovir PCR Not Detected (NotDetected) Influenza Type A (PCR) Not Detected (NotDetected) Influenza Type B (PCR) Not Detected (NotDetected) M. pneumoniae (PCR) Not Detected (NotDetected) Parainfluenza 1 (PCR) Not Detected (NotDetected) Parainfluenza 2 (PCR) Not Detected (NotDetected) Parainfluenza 3 (PCR) Not Detected (NotDetected) Parainfluenza 4 (PCR) Not Detected (NotDetected) RSV (PCR) Not Detected (NotDetected) Entero/Rhino (PCR) DETECTED A* (NotDetected) 08/06/22 08/06/22 08/06/22 Range/Units 00:28 00:28 00:28 WBC (4.8-10.8) K/ul RBC (4.70-6.10) M/uL Hgb (14.0-18.0) g/dl Hct (42.0-52.0) % MCV (80.0-100.0) fL MCH (25.0-34.0) pg MCHC (32.0-36.0) g/dL RDW Std Deviation (36.4-46.3) fL RDW Coeff of Gavino (11.5-14.5) % Plt Count (130-400) K/uL MPV (9.4-12.4) fL Immature Gran % (Auto) % Neut % (Auto) % Lymph % (Auto) % [place] % (Auto) % Eos % (Auto) % Baso % (Auto) % Neut # (Auto) (1.40-6.50) K/uL Lymph # (Auto) (1.2-3.4) K/uL [place] # (Auto) (0.11-0.59) K/uL Eos # (Auto) (0-0.50) K/uL Baso # (Auto) (0-0.2) K/uL Immature Gran # (Auto) (0.01-0.20) K/uL PT 11.9 (9.0-12.0) Seconds INR 1.1 (0.9-1.1) APTT 24.9 (21.0-31.0) Seconds PTT Ratio 0.9 Sodium (136-145) mmol/L Potassium (3.5-5.1) mmol/L Chloride (98-107) mmol/L Carbon Dioxide (21-32) mmol/L Anion Gap (3-11) BUN (6-23) mg/dl Creatinine (0.6-1.4) mg/dl Est Cr Clr Drug Dosing ml/min Est GFR ( Amer) ml/min Est GFR (Non-Af Amer) ml/min BUN/Creatinine Ratio (10-20) Glucose (70-99(Fasting)) mg/dl Lactate 2.5 H* (0.4-2.0) mmol/L Calcium (8.6-10.3) mg/dl Magnesium (1.7-2.4) mg/dl Total Bilirubin (0.2-1.0) mg/dl Direct Bilirubin (0-0.2) mg/dl AST (13-39) U/L ALT (7-52) U/L Alkaline Phosphatase (34-104) U/L Troponin I High Sens (0-20) pg/ml Total Protein (6.0-8.3) gm/dl Albumin (3.4-5.0) gm/dl Procalcitonin 0.60 H (0-0.5) ng/ml Adenovirus (PCR) (NotDetected) B. pertussis DNA (PCR) (NotDetected) B.parapertussis DNA PCR (NotDetected) C. pneumoniae DNA (PCR) (NotDetected) Coronavirus OC43 (PCR) (NotDetected) Coronavirus HKU1 (PCR) (NotDetected) Coronavirus 229E (PCR) (NotDetected) SARS-CoV-2 (PCR) (NotDetected) Coronavirus NL63 (PCR) (NotDetected) Human Metapneumovir PCR (NotDetected) Influenza Type A (PCR) (NotDetected) Influenza Type B (PCR) (NotDetected) M. pneumoniae (PCR) (NotDetected) Parainfluenza 1 (PCR) (NotDetected) Parainfluenza 2 (PCR) (NotDetected) Parainfluenza 3 (PCR) (NotDetected) Parainfluenza 4 (PCR) (NotDetected) RSV (PCR) (NotDetected) Entero/Rhino (PCR) (NotDetected) Administered Medications Discontinued Medications Sodium Chloride (Nss 1000ml) 1,000 mls @ 999 mls/hr IV .Q1H1M LINO Stop: 08/06/22 00:45 Last Infusion: 08/06/22 01:00 Dose: 0 mls/hr Documented By: Admin: 08/05/22 23:58 Dose: 999 mls/hr Documented By: MARY Cefepime HCl (Maxipime) 2,000 mg in 20 mls @ 5 mls/min IV NOW STA; Protocol Stop: 08/05/22 23:50 Last Admin: 08/06/22 00:38 Dose: 5 mls/min Documented By: MARY Discharge Plan Visit Data Chief Complaint: Cough Stated Complaint: WEAKNESS/COUGH/POSSIBLE SEPSIS ED Provider: Dheeraj Lira Discharge Problem: Pneumonia, Hypoxia Forms Stand Alone Forms: [facility] Prescriptions Prescriptions: No Action atorvastatin [Lipitor] 20 mg tablet 20 mg PO QPM Qty: 90 3RF amlodipine [Norvasc] 5 mg tablet 5 mg PO QAM Qty: 90 3RF ascorbic acid (vitamin C) 500 mg tablet 500 mg PO QPM Centrum Silver Men 300-600-300 mcg Tablet 1 tab PO PM cholecalciferol (vitamin D3) [Vitamin D3] 50 mcg (2,000 unit) capsule 50 mcg PO QAM Patient Comments: bottle says with calcium 75 mg coenzyme Q10 [CoQ-10] 100 mg capsule 100 mg PO QAM oxycodone-acetaminophen 5-325 mg tablet 1 tab PO Q6H PRN (Reason: pain) Qty: 30 0RF meloxicam 15 mg Tablet 15 mg PO DAILY PRN (Reason: Pain) aspirin 81 mg tablet,delayed release (DR/EC) 81 mg PO QAM clotrimazole-betamethasone 1-0.05 % cream 1 applic topical BID PRN (Reason: Skin Irritation) Referrals Referrals: Ramsey Mesa MD [Primary Care Provider] -
[2022-08-06 01:02] LABS: Hematocrit (blood only) 37.7 % (42.0-52.0); Hemoglobin 13.1 g/dl (14.0-18.0); Mean Corpuscular Hemoglobin 28.9 pg (25.0-34.0); Mean Corpuscular Hgb Conc 34.7 g/dL (32.0-36.0); Mean Platelet Volume 10.3 fL (9.4-12.4); Platelet Count 189 K/uL (130-400); RDW Coefficient of Variation 13.7 % (11.5-14.5); RDW Standard Deviation 41.3 fL (36.4-46.3); Red Blood Count 4.54 M/uL (4.70-6.10); White Blood Count 14.35 K/ul (4.8-10.8)
[2022-08-06 01:09] LABS: Adenovirus PCR Not Detected (NotDetected); Bordetella parapertussis PCR Not Detected (NotDetected); Bordetella pertussis PCR Not Detected (NotDetected); Chlamydia pneumoniae PCR Not Detected (NotDetected); Coronavirus 229E PCR Not Detected (NotDetected); Coronavirus CoV-2 (COVID19)PCR Not Detected (NotDetected); Coronavirus HKU1 PCR Not Detected (NotDetected); Coronavirus NL63 PCR Not Detected (NotDetected); Coronavirus OC43PCR Not Detected (NotDetected); Human Metapneumovirus PCR Not Detected (NotDetected); Influenza A PCR Not Detected (NotDetected); Influenza B PCR Not Detected (NotDetected); Mycoplasma pneumoniae PCR Not Detected (NotDetected); Parainfluenza Virus 1 PCR Not Detected (NotDetected); Parainfluenza Virus 2 PCR Not Detected (NotDetected); Parainfluenza Virus 3 PCR Not Detected (NotDetected); Parainfluenza Virus 4 PCR Not Detected (NotDetected); Respiratory Syncytial VirusPCR Not Detected (NotDetected)
[2022-08-06 01:17] LABS: Albumin Level 3.6 gm/dl (3.4-5.0); BUN Creatinine Ratio 28.3 (10-20); Bilirubin Direct 0.1 mg/dl (0-0.2); Bilirubin,Total 1.4 mg/dl (0.2-1.0); Calcium 8.6 mg/dl (8.6-10.3); Creatinine Clr Calc Pharmacy 89.7 ml/min; Est GFR (African American) 92.7 ml/min; Est GFR (Non-African American) 79.9 ml/min; Magnesium 1.4 mg/dl (1.7-2.4); Potassium 3.9 mmol/L (3.5-5.1); Total Protein 6.4 gm/dl (6.0-8.3)
[2022-08-06 01:23] LABS: Troponin I High Sensitivity 11.5 pg/ml (0-20)
[2022-08-06 01:28] LABS: Basophils # (auto) 0.03 K/uL (0-0.2); Basophils % (auto) 0.2 %; Immature Granulocytes # (auto) 0.04 K/uL (0.01-0.20); Immature Granulocytes % (auto) 0.3 %; Lymphocytes # (auto) 0.46 K/uL (1.2-3.4); Lymphocytes % (auto) 3.2 %; Monocytes # (auto) 0.81 K/uL (0.11-0.59); Monocytes % (auto) 5.6 %; Neutrophils # (auto) 13.01 K/uL (1.40-6.50); Neutrophils % (auto) 90.7 %
[2022-08-06 01:31] LABS: Rhinovirus/Enterovirus PCR DETECTED (NotDetected)
[2022-08-06 01:32] LABS: INR 1.1 (0.9-1.1); Partial Thromboplastin Ratio 0.9; Partial Thromboplastin Time 24.9 Seconds (21.0-31.0); Prothrombin Time 11.9 Seconds (9.0-12.0)
[2022-08-06] MEDS ORDERED: IBUPROFEN 200 MG TAB PO PRN (02:26)
--- NOTE | 2022-08-06 02:33 | History & Physical Report ---
Date of Service August 06, 2022 Assessment & Plan (1) Hypoxia: Plan: 76yo Male with PMH HTN ANGEL HLD Prostate cancer (removed 2010) afib and stroke (age 28) here for congestion weakness. Hypoxia concern PNA -pulse ox 88% on room air, satting well on 2LNC -biofire positive entero/rhinovirus -CXR : elevated left hemidiaphragm, increased haziness noted in right lower lung field -WBC 14.35, lactate 2.5, procal 0.6 -in ED received NSS 1L, cefepime -blood cultures pending -PRN tylenol ibuprofen for fever control -Mucinex tessalon perrls for cough -ordered incentive spirometry -repeat lactate 6.7, will order empiric cefepime at this time. HTN -continue home amlodipine ANGEL -patient noncompliant with CPAP HLD -continue atorvastatin Distant Hx. Afib with Stroke -continue atorvastatin, amlodipine -continue ASA 81mg FENa: regular Code Status: full Dispo: med/surg Dianne Sloan D.O. PGY 2, FCM (2) Hypertension: (3) Severe obstructive sleep apnea: (4) Prostate cancer: (5) Hyperlipidemia: (6) Hypertension: History of Present Illness Chief Complaint: SOB Primary Care Provider: Ramsey Mesa MD 76yo Male with PMH HTN ANGEL HLD Prostate cancer (removed 2010) afib and stroke (age 28) here for congestion weakness. Patient states he has congestion cough ongoing 2 weeks, was self managing with robitussin tylenol lozenges which helped at first. Poor appetite in past week. Symptoms worsened yesterday had a period of nausea, today developed new fever worsened productive cough weakness with ambulation. At this time he denies any chest pain abd pain SOB. Patient denies smoking. Allergies Allergy/AdvReac Type Severity Reaction Status Date / Time No Known Allergies Allergy Mild Verified 08/06/22 00:11 Home Medications Medication Instructions Recorded Confirmed Type ascorbic acid (vitamin C) 500 mg 500 mg PO QPM 02/09/19 08/06/22 History tablet coenzyme Q10 100 mg capsule 100 mg PO QAM 03/01/20 08/06/22 History (CoQ-10) demuooyz-kaq-ukepr acid 300 1 tab PO PM 05/17/20 08/06/22 History mcg-lycopene 600 mcg-lutein 300 mcg tablet (Centrum Silver Men) cholecalciferol (vitamin D3) 50 50 mcg PO QAM 09/14/20 08/06/22 History mcg (2,000 unit) capsule (Vitamin D3) atorvastatin 20 mg tablet (Lipitor) 20 mg PO QPM #90 tabs 01/21/22 08/06/22 Rx oxycodone-acetaminophen 5 mg-325 1 tab PO Q6H PRN pain #30 tabs 06/15/22 08/06/22 Rx mg tablet amlodipine 5 mg tablet (Norvasc) 5 mg PO QAM #90 tabs 07/02/22 08/06/22 Rx aspirin 81 mg tablet,delayed 81 mg PO QAM 08/06/22 08/06/22 History release clotrimazole-betamethasone 1 1 applic topical BID PRN Skin 08/06/22 08/06/22 History %-0.05 % topical cream Irritation meloxicam 15 mg tablet 15 mg PO DAILY PRN Pain 08/06/22 08/06/22 History Past Med/Surg History Medical History History of atrial fibrillation Remote episodic history (age 28)- was put on Digoxin for some time, but then changed PCPs and new PCP did event monitor (which showed no episodes of a. fib) so PCP discontinued digoxin, no issues since History of prostate cancer dx 2010, s/p prostactectomy, no chemo or xrt History of skin cancer precancerous s/p excision (head) History of stroke CVA vs. TIA (associated with single episode of a. fib at age 28) Hyperlipidemia Hypertension Obesity Osteoarthritis Seasonal allergies Sleep apnea CPAP (non-compliant) Surgical History Difficult airway for intubation Open Ventral Hernia Repair (04/20/21): Grade 2 view, Glidescope#4, ETT 8.0, [place] [facility] [place] No issues noted per post-op anesthesia progress note. H/O lumbar discectomy H/O ventral hernia repair Open Ventral Hernia Repair (04/20/21): Grade 2 view, Glidescope#4, ETT 8.0, atraumatic at [facility] [place] No issues noted per post-op anesthesia progress note. History of reverse total replacement of right shoulder joint Right reverse total shoulder arthroplasty History of total knee replacement Left TKA (06/02/20): SAB x1 attempt + PNB at [facility]. No issues noted per post-op anesthesia progress note. Hx of appendectomy Hx of colonoscopy Hx of prostatectomy Hx of umbilical hernia repair [place] teeth removed Family History Father Alzheimer disease Mother Suicide Grandmother Myocardial infarction Other No family history of adverse response to anesthesia Prostate cancer Denies family history of Ovarian cancer Breast cancer Colorectal cancer Social History Smoking Status: Never smoker Tobacco Type: Cigars Age Started Using Tobacco: 15; Age Quit Using Tobacco: 54; packs per day: 5; Second Hand Exposure: No; Do You Dip or Chew Tobacco: No; Hx Alcohol Use: No Hx Substance Use: No Preferred Language: Wolof Communication Ability: Effective Visual Impairment: No Limitations Hearing Ability: Normal Promotions Assistant Sales Marketing Required: No Beliefs That Will Affect Care: None marital status: Current Living Situation: Spouse current occupational status: employed and retired current occupation: [employer] Driver Feels Safe at Home: Yes Childhood Exposure to Second-Hand Smoke: No Diet: regular caffeine: Yes during the past year weight has: remained stable Dental Care, Regularly: Yes Physical Activity Frequency: Does not Exercise Seatbelt Use: always Sunscreen Use: Yes Do you think of yourself as: straight/heterosexual Assistive Devices: Cane and Glasses Physical Exam Constitutional: + obese, cooperative and comfortable Eyes: PERRL, conjunctivae normal, anicteric sclerae ENMT: external ear and nose normal, oropharynx normal Neck: trachea midline, no thyromegaly Respiratory: normal respiratory effort Auscultation: + rhonchi Cardiovascular: Rate/Rhythm: regular rate and regular rhythm Extremities: + edema (+1 pitting b/l) Gastrointestinal (Abdomen): Inspection/Auscultation: abdomen normal to inspection Percussion/Palpation: abdomen soft; abdomen nontender Skin: no rashes, warm and dry Results & Data Results & Data Vital Signs (Past 12 Hours) Vital Signs Temp Pulse Resp BP Pulse Ox O2 Del Method O2 Flow Rate 08/06/22 01:36 89 22 133/60 93 Nasal Cannula 2 08/06/22 01:15 88 L Nasal Cannula 2 08/06/22 01:00 97 H 24 125/65 92 08/06/22 00:40 38.7 C H 96 H 22 137/76 92 08/06/22 00:00 105 H 24 167/121 H 92 08/05/22 23:48 106 H 08/06/22 00:06 91 Room Air 08/05/22 23:40 39.3 C H 107 H 24 178/78 H 92 Room Air Supervising Physician Co-Signing Physician Notes Attending addendum: I have physically seen this patient, have supervised the medical residents activities, and agree with the H&P unless as otherwise noted. Assessment and Plan: Acute respiratory failure with hypoxia/pneumonia- Temperature 38.7, pulse ox 88% on room air BioFire positive for enterovirus/rhinovirus Patient did receive cefepime 2 g IV in the ED. Unclear if this is secondary bacterial component Follow course overnight, and if necessary, add antibacterial coverage in the morning Guaifenesin extended release 12 mg p.o. twice daily Methylprednisolone 40 mg IV every 8 hours Duonebs every 4 hours while awake and every 2 hours when necessary. Hypertension- Continue amlodipine with hold parameters Continue aspirin ANGEL- More likely to need CPAP associated with acute infection Hyperlipidemia- Continue atorvastatin Remaining orders and notations as noted Resident Activity Tracking Resident Involvement: Resident Care Provided Care Provided: Adult Hospital Medicine (2) Hypertension Hypertension type: essential hypertension Qualified Code(s): I10 - Essential (primary) hypertension
[2022-08-06] MEDS ORDERED: ACETAMINOPHEN 325 MG TAB PO PRN (03:40)
[2022-08-06 04:25] LABS: Appearance Urine Clear (Clear); Bacteria Urine Automated Negative (Negative); Bilirubin Urine Negative (Negative); Blood Urine Negative (Negative); Color Urine Dark Yellow; Glucose Urine UA Negative (Negative); Ketones Urine 1+ (Negative); Leukocyte Esterase Urine Negative (Negative); Nitrite Urine Negative (Negative); Protein Urine Trace (Negative); RBC Urine Automated 0-4 /hpf (0-4); Specific Gravity Urine 1.024 (1.000-1.030); Urobilinogen Urine Negative (Negative); pH Urine 5.5 (4.5-7.5)
[2022-08-06] MEDS ORDERED: FUROSEMIDE 40 MG/4 ML VIAL IV ONE (05:00)
[2022-08-06] MEDS: BENZONATATE 100 MG CAPSULE PO PRN (05:30)
[2022-08-06] MEDS: MAGNESIUM SULFATE / D5W 1 GM/100 ML BAG IV SCH ×4 (05:31→11:50)
--- NOTE | 2022-08-06 07:02 | XRay Report ---
XR chest 1V portable HISTORY: 76 years-old Male Sepsis acute sepsis COMPARISON: Chest radiograph 05/29/2022 TECHNIQUE: AP view of the chest FINDINGS: Cardiac silhouette is enlarged. Unchanged left hemidiaphragmatic elevation. Chronic blunting of the c ostophrenic angles. Mildly progressed bibasilar opacities. No pneumothorax or large pleural effusion. Degenerative changes of the spine and left shoulder. Versed right shoulder arthroplasty. IMPRESSION: 1. Cardiomegaly without overt pulmonary edema. 2. Chronic left hemidiaphragmatic elevation. 3. Mild bibasilar opacities favor atelectasis. A mild nonspecific pneumonitis could appear similarly. ACT 112: Negative or not required by law. The above report was generated using voice recognition software. It may contain grammatical, syntax o r spelling errors. Electronically signed by: Miguel Angel Pickard M.D. 08/06/2022 7:01 AM
[2022-08-06] MEDS: CEFEPIME 2,000 MG in SYRINGE 0 ML IV SCH ×3 (08:16→23:09)
[2022-08-06] MEDS: guaiFENesin 600 MG TABCR PO SCH ×2 (08:16→20:51)
[2022-08-06] MEDS: CHOLECALCIFEROL 1,000 UNITS 25 MCG TAB PO SCH (08:16)
[2022-08-06] MEDS: amLODIPine BESYLATE 5 MG TAB PO SCH (08:17)
[2022-08-06] MEDS: ASPIRIN 81 MG ECTAB PO SCH (08:17)
[2022-08-06] MEDS ORDERED: NON-FORMULARY MEDICATION (Coenzyme Q10 [Coq-10] 100 mg capsule) PO SCH (09:00)
[2022-08-06 15:50] LABS: Albumin Globulin Ratio 1.3 (0.9-2); Albumin Level 3.9 gm/dl (3.4-5.0); BUN Creatinine Ratio 26.7 (10-20); Bilirubin,Total 1.6 mg/dl (0.2-1.0); Calcium 8.9 mg/dl (8.6-10.3); Creatinine Clr Calc Pharmacy 95.9 ml/min; Est GFR (African American) 96.9 ml/min; Est GFR (Non-African American) 83.6 ml/min; Magnesium 2.6 mg/dl (1.7-2.4); Potassium 3.7 mmol/L (3.5-5.1); Total Protein 6.9 gm/dl (6.0-8.3)
[2022-08-06] MEDS: CEROVITE ADV FORMULA TAB PO SCH (20:51)
[2022-08-06] MEDS: ASCORBIC ACID 500 MG TAB PO SCH (20:51)
[2022-08-06] MEDS: ATORVASTATIN 20 MG TAB PO SCH (20:51)
--- NOTE | 2022-08-07 05:40 | Billing Data ---
Date of Service August 07, 2022 Coding Level of Care Code 01393 INT INP/OBS CARE
--- NOTE | 2022-08-07 05:49 | Electrocardiogram Report ---
Test Reason : Blood Pressure : / mmHG Vent. Rate : 107 BPM Atrial Rate : 107 BPM P-R Int : 166 ms QRS Dur : 082 ms QT Int : 324 ms P-R-T Axes : 047 -52 066 degrees QTc Int : 432 ms Sinus tachycardia Left axis deviation Abnormal ECG When compared with ECG of 29-MAY-2022 11:43, No significant change was found Confirmed by Sheldon Mejia ([id number]) on 08/07/2022 5:49:01 AM Referred By: REFERRED SELF Confirmed By:Sheldon Mejia
[2022-08-07] MEDS: guaiFENesin 600 MG TABCR PO SCH ×2 (08:17→20:57)
[2022-08-07] MEDS: CHOLECALCIFEROL 1,000 UNITS 25 MCG TAB PO SCH (08:17)
[2022-08-07] MEDS: ASPIRIN 81 MG ECTAB PO SCH (08:17)
[2022-08-07] MEDS: CEFEPIME 2,000 MG in SYRINGE 0 ML IV SCH (08:17)
[2022-08-07] MEDS: amLODIPine BESYLATE 5 MG TAB PO SCH (08:17)
[2022-08-07 11:15] LABS: Hematocrit (blood only) 38.1 % (42.0-52.0); Hemoglobin 12.6 g/dl (14.0-18.0); Mean Corpuscular Hemoglobin 27.4 pg (25.0-34.0); Mean Corpuscular Hgb Conc 33.1 g/dL (32.0-36.0); Mean Corpuscular Volume 82.8 fL (80.0-100.0); Mean Platelet Volume 10.3 fL (9.4-12.4); Platelet Count 184 K/uL (130-400); RDW Coefficient of Variation 13.7 % (11.5-14.5); RDW Standard Deviation 41.2 fL (36.4-46.3); White Blood Count 15.22 K/ul (4.8-10.8)
[2022-08-07 11:22] LABS: Base Excess VBG 3.1 mEq/L; HCO3 VBG 27 mmol/L; Oxygen Saturation VBG 97.4 %; PCO2 VBG 38 mmHg (38-50); PO2 VBG 76 mmHg; pH VBG 7.46 (7.36-7.41)
[2022-08-07 11:35] LABS: Calcium 8.5 mg/dl (8.6-10.3); Potassium 3.8 mmol/L (3.5-5.1)
[2022-08-07 11:40] LABS: BUN Creatinine Ratio 27.8 (10-20); C Reactive Protein 25.97 mg/dl (0-0.5); Creatinine Clr Calc Pharmacy 104.4 ml/min; Est GFR (African American) 100.4 ml/min; Est GFR (Non-African American) 86.6 ml/min
[2022-08-07] MEDS ORDERED: cefTRIAXone SODIUM 1,000 MG in DEXTROSE 5% AD-VAN 50 ML IV SCH (15:00)
--- NOTE | 2022-08-07 15:47 | XRay Report ---
XR chest 2V PA/lateral HISTORY: 76 years-old Male sob acute shortness of breath COMPARISON: Chest radiograph 08/06/2022 TECHNIQUE: PA and lateral views of the chest FINDINGS: Cardiac silhouette is enlarged. Chronic left hemidiaphragm elevation with unchanged blunting of the c ostophrenic angles. Mild bibasilar opacities are noted with decreased pulmonary vascular congestion. Reverse right shoulder total joint arthroplasty. Degenerative changes of the spine and left shoulder. IMPRESSION: 1. Cardiomegaly with improved pulmonary vascular congestion. 2. Chronic left hemidiaphragm elevation with mild bibasilar opacities again favoring atelectasis. ACT 112: Negative or not required by law. The above report was generated using voice recognition software. It may contain grammatical, syntax o r spelling errors. Electronically signed by: Miguel Angel Pickard M.D. 08/07/2022 3:46 PM
[2022-08-07] MEDS: cefTRIAXone SODIUM 2,000 MG in DEXTROSE 5% 50 ML IV SCH (16:56)
[2022-08-07] MEDS: AZITHROMYCIN 500 MG in DEXTROSE 5% 250 ML IV SCH (16:56)
[2022-08-07] MEDS: BENZONATATE 100 MG CAPSULE PO PRN ×2 (16:59→23:04)
[2022-08-07] MEDS: SODIUM CHLOR 7% 4 ML NEB NEB SCH (19:40)
[2022-08-07] MEDS: CEROVITE ADV FORMULA TAB PO SCH (20:57)
[2022-08-07] MEDS: ASCORBIC ACID 500 MG TAB PO SCH (20:57)
[2022-08-07] MEDS: ATORVASTATIN 20 MG TAB PO SCH (20:58)
--- NOTE | 2022-08-07 22:09 | Hospitalist Progress Note ---
Date of Service August 07, 2022 Assessment & Plan (1) Hypoxia: Plan: 76yo Male with PMH HTN ANGEL HLD Prostate cancer (removed 2010) afib and stroke (age 28) here for congestion weakness. Hypoxia, viral pneumonia vs viral bronchitis Patient is now on room air from 2 liters. -biofire positive entero/rhinovirus -CXR : elevated left hemidiaphragm, improved haziness on 08/07 -blood work though is worsening, will monitor overnight, to ensure clinical improvement -patient may be discharged on 08/08 -cefepime stopped and transitioned to ceftriaxone and azithromycin, -blood cultures pending -PRN tylenol ibuprofen for fever control -Mucinex tessalon perrls for cough -ordered incentive spirometry -lactic acid improved. HTN -continue home amlodipine ANGEL -patient noncompliant with CPAP HLD -continue atorvastatin Distant Hx. Afib with Stroke -continue atorvastatin, amlodipine -continue ASA 81mg FENa: regular Code Status: full Dispo: med/surg Dianne Sloan D.O. PGY 2, FCM (2) Hypertension: (3) Severe obstructive sleep apnea: (4) Prostate cancer: (5) Hyperlipidemia: Plan possible discharge on 08/08 Admission and Anticipated Discharge Date Admission Date: August 07, 2022 Subjective Patient reports feeling better, Review of Systems Review of Systems: All systems reviewed & are unremarkable except as noted in HPI & below Physical Exam Constitutional: + obese, cooperative and comfortable Eyes: PERRL, conjunctivae normal, anicteric sclerae ENMT: external ear and nose normal, oropharynx normal Neck: trachea midline, no thyromegaly Respiratory: normal respiratory effort Auscultation: lungs clear to auscultation bilaterally Cardiovascular: Rate/Rhythm: regular rate and regular rhythm Extremities: + edema (+1 pitting b/l) Gastrointestinal (Abdomen): Inspection/Auscultation: abdomen normal to inspection Percussion/Palpation: abdomen soft; abdomen nontender Skin: no rashes, warm and dry Results & Data Results & Data Vital Signs (Past 12 Hours) Vital Signs Temp Pulse Resp BP Pulse Ox O2 Del Method O2 Flow Rate 08/07/22 21:03 36.7 C 109 H 24 163/74 H 94 Room Air 08/07/22 19:43 115 H 18 97 Room Air 08/07/22 14:37 36.6 C 95 H 16 124/79 94 Room Air 08/07/22 12:13 94 Room Air 08/07/22 11:20 96 Nasal Cannula 2 08/07/22 10:33 97 Nasal Cannula 2 PG Care Time/CCT Total # of Minutes Spent Total Time Spent with Patient: Total time spent is greater than 50% in coordination of care (as documented) at patient's floor/unit and/or counseling patient: Coding Level of Care Code 48535 SUB INP/OBS CARE 2/35MIN Diagnoses Hypoxia R09.02 Hypertension I10 Hypertension type: essential hypertension Severe obstructive sleep apnea G47.33 Prostate cancer C61 Hyperlipidemia E78.5 (2) Hypertension Hypertension type: essential hypertension Qualified Code(s): I10 - Essential (primary) hypertension
[2022-08-08 08:06] LABS: Hematocrit (blood only) 38.8 % (42.0-52.0); Hemoglobin 12.8 g/dl (14.0-18.0); Mean Corpuscular Hemoglobin 27.6 pg (25.0-34.0); Mean Corpuscular Volume 83.8 fL (80.0-100.0); Mean Platelet Volume 10.1 fL (9.4-12.4); Platelet Count 212 K/uL (130-400); RDW Coefficient of Variation 13.4 % (11.5-14.5); RDW Standard Deviation 41.1 fL (36.4-46.3); Red Blood Count 4.63 M/uL (4.70-6.10); White Blood Count 10.66 K/ul (4.8-10.8)
[2022-08-08] MEDS: SODIUM CHLOR 7% 4 ML NEB NEB SCH (08:21)
[2022-08-08 08:29] LABS: BUN Creatinine Ratio 21.2 (10-20); C Reactive Protein 14.61 mg/dl (0-0.5); Calcium 8.6 mg/dl (8.6-10.3); Creatinine Clr Calc Pharmacy 97.1 ml/min; Est GFR (African American) 97.4 ml/min; Potassium 3.6 mmol/L (3.5-5.1)
--- NOTE | 2022-08-08 08:48 | Hospitalist Progress Note ---
Date of Service August 08, 2022 Assessment & Plan (1) Hypoxia: Plan: 76yo Male with PMH HTN ANGEL HLD Prostate cancer (removed 2010) afib and stroke (age 28) here for congestion weakness. Acute Hypoxia now resolved , viral pneumonia vs viral bronchitis oxygen supplementation no longer required -biofire positive entero/rhinovirus -CXR : elevated left hemidiaphragm, improved haziness on 08/07 -cefepime stopped and transitioned to ceftriaxone and azithromycin, -blood cultures negative -ordered incentive spirometry -lactic acid improved. HTN chronic and stable -continue home amlodipine ANGEL, chronic -patient noncompliant with CPAP HLD chronic -continue atorvastatin Distant Hx. Afib with Stroke -continue atorvastatin, amlodipine -continue ASA 81mg, no formal anticoagulation Code Status: full (2) Prostate cancer: Admission and Anticipated Discharge Date Admission Date: August 07, 2022 Results & Data Results & Data Vital Signs (Past 12 Hours) Vital Signs Temp Pulse Resp BP Pulse Ox O2 Del Method 08/08/22 07:30 98.2 F 82 16 120/84 94 Room Air 08/07/22 21:00 Room Air 08/07/22 21:03 98.1 F 109 H 24 163/74 H 94 Room Air PG Care Time/CCT Total # of Minutes Spent Total Time Spent with Patient: Total time spent is greater than 50% in coordination of care (as documented) at patient's floor/unit and/or counseling patient: Coding Diagnoses Hypoxia R09.02 Prostate cancer C61
[2022-08-08] MEDS: guaiFENesin 600 MG TABCR PO SCH (09:02)
[2022-08-08] MEDS: ASPIRIN 81 MG ECTAB PO SCH (09:03)
[2022-08-08] MEDS: CHOLECALCIFEROL 1,000 UNITS 25 MCG TAB PO SCH (09:03)
[2022-08-08] MEDS: amLODIPine BESYLATE 5 MG TAB PO SCH (09:03)
[2022-08-08] MEDS: cefTRIAXone SODIUM 2,000 MG in DEXTROSE 5% 50 ML IV SCH (14:43)
[2022-08-08] MEDS: AZITHROMYCIN 500 MG in DEXTROSE 5% 250 ML IV SCH (15:08)
--- NOTE | 2022-08-08 16:20 | Discharge Summary ---
Date of Service August 08, 2022 Admission HPI Per Admitting Provider 76yo Male with PMH HTN ANGEL HLD Prostate cancer (removed 2010) afib and stroke (age 28) here for congestion weakness. Patient states he has congestion cough ongoing 2 weeks, was self managing with robitussin tylenol lozenges which helped at first. Poor appetite in past week. Symptoms worsened yesterday had a period of nausea, today developed new fever worsened productive cough weakness with ambulation. At this time he denies any chest pain abd pain SOB. Patient denies smoking. Principal Diagnosis Pneumonia Persistent coughing Discharge Exam Pulmonary exam shows clear lungs with good air movement no focal loss wheeze or egophony Discharge Data Allergies Allergy/AdvReac Type Severity Reaction Status Date / Time No Known Allergies Allergy Mild Verified 08/06/22 00:11 Consultations 08/06/22 01:41 ED Decision to Admit Stat Hospital Course (1) Hypoxia: 76yo Male with PMH HTN ANGEL HLD Prostate cancer (removed 2010) afib and stroke (age 28) here for congestion weakness. Acute Hypoxia now resolved , viral pneumonia vs viral bronchitis oxygen supplementation no longer required -biofire positive entero/rhinovirus -CXR : elevated left hemidiaphragm, improved haziness on 08/07 recommend outpatient follow-up once seen by primary care Complete course of azithromycin -blood cultures negative -ordered incentive spirometry -lactic acid improved. HTN chronic and stable -continue home amlodipine ANGEL, chronic -patient noncompliant with CPAP reinforced use for home HLD chronic -continue atorvastatin Distant Hx. Afib with Stroke -continue atorvastatin, amlodipine -continue ASA 81mg, no formal anticoagulation Code Status: full (2) Prostate cancer: Total Time Total Time Spent Total Time Spent (In Minutes): It required greater than 30 minutes to prepare this patient for discharge Discharge Plan Discharge Items Patient Disposition: Home - Self-Care Reason For Visit: SOB Discharge Diagnosis: Pneumonia Activity: Per Instructions section Activity Comment: slowly increase activity Non-emergency contact: Primary Care Provider Call non-emergency contact if: your symptoms worsen Follow-up/Referrals: Ramsey Mesa MD [Primary Care Provider] - 08/16/22 8:40 am (Appt with Johanne VAIL on 08/16/22 @ 8:40) Diet: Regular Addtl Attending Provider Instructions: Please complete your antibiotics use cough medicine sparingly at night as may cause some drowsiness, also be cautious using your cough medicine in conjunction with your oxycodone Please follow-up with your primary care provider you may request you have a repeat chest x-ray in about 1 month's time Once you recover if it is an appropriate timeframe consider having a pneumonia vaccine If coughing is worse at night when you lay down consider reflux of acid as part of the coughing complex you may discuss this with Dr. Mesa Pending Studies at Discharge: No Stand-Alone Forms: My [facility], Smoking Cessation Medications and DC Order Prescriptions: New azithromycin 250 mg tablet 250 mg PO DAILY 4 Days Qty: 4 0RF Rx Instructions: start on day 2 of therapy dextromethorphan HBr 15 mg/5 mL syrup 15 mg PO Q8H PRN (Reason: cough) Qty: 118 0RF Continued atorvastatin [Lipitor] 20 mg tablet 20 mg PO QPM Qty: 90 3RF amlodipine [Norvasc] 5 mg tablet 5 mg PO QAM Qty: 90 3RF ascorbic acid (vitamin C) 500 mg tablet 500 mg PO QPM Centrum Silver Men 300-600-300 mcg Tablet 1 tab PO PM cholecalciferol (vitamin D3) [Vitamin D3] 50 mcg (2,000 unit) capsule 50 mcg PO QAM Patient Comments: bottle says with calcium 75 mg coenzyme Q10 [CoQ-10] 100 mg capsule 100 mg PO QAM oxycodone-acetaminophen 5-325 mg tablet 1 tab PO Q6H PRN (Reason: pain) Qty: 30 0RF meloxicam 15 mg Tablet 15 mg PO DAILY PRN (Reason: Pain) aspirin 81 mg tablet,delayed release (DR/EC) 81 mg PO QAM clotrimazole-betamethasone 1-0.05 % cream 1 applic topical BID PRN (Reason: Skin Irritation) Discharge Orders: Discharge Order (Routine); Ordered 08/08/22 Ordered By: Jett Thomas Admission Data Admit Date/Time: 08/07/22 14:45 Attending Provider: Jett Thomas Admit Provider: Dianne Sloan Primary Care Provider: Ramsey Mesa Other Providers: Shane Sykes Other Interventions: Discharge Summary Assessment (RN) Last Done: 08/08/22 15:32 Coding Level of Care Code 95349 INP/OBS DISCH >30 MIN Diagnoses Hypoxia R09.02 Prostate cancer C61
== END 2022-08-08 17:30 | disposition home or self-care (01) | DRG 193 ==
LOC: ED 23:40 → 3E 23:40 → SUATTDRO 08-06 02:26 → 3E 08-06 03:14 → SUATTDRO 08-07 14:45

== ENCOUNTER 2023-05-17 20:16 | Observation (INO) ==
[2023-05-17 20:58] LABS: Albumin Globulin Ratio 1.3 (0.9-2); BUN Creatinine Ratio 59.3 (10-20); Bilirubin,Total 0.6 mg/dl (0.2-1.0); Calcium 9.2 mg/dl (8.6-10.3); Creatinine Clr Calc Pharmacy 97.7 ml/min; Est GFR (African American) 98.7 ml/min; Est GFR (Non-African American) 85.1 ml/min; Potassium 4.1 mmol/L (3.5-5.1)
[2023-05-17 21:05] LABS: Troponin I High Sensitivity 5.9 pg/ml (0-20)
--- NOTE | 2023-05-17 21:09 | Emergency Department Note ---
Impression & Plan Acute upper gastrointestinal bleeding, Symptomatic anemia, Weakness ED Provider Note NAME: BETH LYNN AGE: 77 SEX: M : 1945 ARRIVES VIA: Walk-In INFORMANT: Patient ED PROVIDER(S): Rickey Hwang DO CHIEF COMPLAINT: Black stools HPI: Patient is a 69-year-old male who presents to the ER for black/dark tarry stools which started yesterday. He is on aspirin. He notes he has been very weak and rundown. No headache or change in vision. No dizziness. No chest pain or shortness of breath. Denies any belly pain, nausea, vomiting or diarrhea. No dysuria, urgency or frequency. No other exacerbating or remitting factors. Denies any blood thinners other than the aspirin. No other exacerbating or remitting factors. ADDITIONAL HISTORY OBTAINED: Per HPI Chronic Medical/Social Conditions Affecting Care: Per HPI PAST MEDICAL HISTORY:See Below PAST SURGICAL HISTORY:See Below FAMILY HISTORY:See Below SOCIAL HISTORY:See Below HOME MEDICATIONS:See Below ALLERGIES:See Below VITALS:See Below PHYSICAL EXAMINATION: GENERAL: Sitting up in bed, alert, well appearing, well nourished, no distress, non-toxic EYE EXAM: normal conjunctiva. OROPHARYNX: no exudate, no erythema, lips, buccal mucosa, and tongue normal and mucous membranes are moist NECK: supple, no nuchal rigidity, no adenopathy, non-tender LUNGS: Clear to auscultation. Normal chest wall mechanics HEART: no murmurs, S1 normal and S2 normal ABDOMEN: abdomen soft, non-tender, normo-active bowel sounds, no masses, no rebound or guarding. GI: Rectal heme positive black stools UPPER EXTREMITIES: upper extremities are grossly normal. LOWER EXTREMITIES: No pitting edema. NEURO EXAM: Normal sensorium, cranial nerves II-XII grossly intact, normal speech, no gross weakness of arms, no gross weakness of legs. MEDICAL DECISION MAKING: Patient is a 77-year-old male who presents the ER for dark tarry stools for the past 2 days. IV was established blood work was obtained. Denies any blood thinners. Does take aspirin. No belly pain. Labs show mild leukocytosis of 13,000. Mild anemia at 11.8 down from baseline of what appears to be 14-15. BMP with slightly elevated BUN again consistent with upper GI bleed. LFTs bilirubin is unremarkable. Troponin was negative. Lipase unremarkable. He was typed and screened. He was given IV fluids. Rectal was heme positive with black stools. Placed on Protonix drip and bolus. Updated bedside discussed with the hospitalist for further evaluation management treatment. Consults/Care Managements Discussions: Per [facility] Triage Nursing notes reviewed. Limited review of prior medical records performed Vital Signs: reviewed and remarkable for HTN and tachy Differential diagnosis: Diverticulosis, AVM, coagulopathy, colitis, inflammatory bowel disease, malignancy, Magalis-Fish tear, esophagitis, peptic ulcer disease, variceal bleed, gastritis, epistaxis, fissure, hemorrhoids, as well as other pathologies. ER treatment provided: See below Diagnostics interpreted by me include EKG and cardiac monitoring as listed below: -Cardiac Monitoring: An order was placed for continuous cardiac monitoring. The monitor shows a rate of 110 with sinus rhythm. -ECG: Sinus tachycardia rate of 101 Normal axis Poor baseline QTc 417 -Laboratory studies:Interpreted by me as stated above in MDM and shown below. Imaging studies: Xrays: As interpreted by me:none CTs show: none Procedures:none Critical Care: None Past Med/Surg History Medical History (Updated 05/18/23 @ 00:13 by Rickey Hwang DO) Peripheral neuropathy Neuropathy Osteoarthritis Hyperlipidemia Obesity History of stroke CVA vs. TIA (associated with single episode of a. fib at age 28) History of atrial fibrillation Remote episodic history (age 28)- was put on Digoxin for some time, but then changed PCPs and new PCP did event monitor (which showed no episodes of a. fib) so PCP discontinued digoxin, no issues since History of skin cancer precancerous s/p excision (head) History of prostate cancer dx 2010, s/p prostactectomy, no chemo or xrt Sleep apnea CPAP (non-compliant) Seasonal allergies Hypertension Surgical History History of cataract surgery right Status post right knee replacement (~05/2022) Difficult airway for intubation Open Ventral Hernia Repair (04/20/21): Grade 2 view, Glidescope#4, ETT 8.0, atraumatic at [facility] [place]. No issues noted per post-op anesthesia progress note. History of total knee replacement Left TKA (3/5/21): SAB x1 attempt + PNB at [facility]. No issues noted per post-op anesthesia progress note. H/O lumbar discectomy [place] teeth removed H/O ventral hernia repair Open Ventral Hernia Repair (04/20/21): Grade 2 view, Glidescope#4, ETT 8.0, atraumatic at [facility] [place]. No issues noted per post-op anesthesia progress note. History of reverse total replacement of right shoulder joint Right reverse total shoulder arthroplasty Hx of appendectomy Hx of colonoscopy Hx of umbilical hernia repair Hx of prostatectomy Family History Father Alzheimer disease Mother Suicide Grandmother Myocardial infarction Other No family history of adverse response to anesthesia Prostate cancer Denies family history of Ovarian cancer Breast cancer Colorectal cancer Social History Smoking Status: Never smoker Tobacco Type: Cigars Age Started Using Tobacco: 15; Age Quit Using Tobacco: 54; packs per day: 5; Second Hand Exposure: No; Do You Dip or Chew Tobacco: No; Hx Alcohol Use: No Hx Substance Use: No Preferred Language: Turkmen Communication Ability: Effective Visual Impairment: No Limitations Hearing Ability: Normal Cold Storage Superintendent Required: No Beliefs That Will Affect Care: None marital status: Current Living Situation: Spouse current occupational status: employed and retired current occupation: [employer] Driver Other Information That Helps Us Care for You: No Feels Safe at Home: Yes Safety Concerns: Feels Safe At This Time Childhood Exposure to Second-Hand Smoke: No Diet: regular caffeine: Yes during the past year weight has: remained stable Dental Care, Regularly: Yes Physical Activity Frequency: Does not Exercise Seatbelt Use: always Sunscreen Use: Yes Do you think of yourself as: straight/heterosexual Assistive Devices: Cane and Glasses Allergies Allergies Allergy/AdvReac Type Severity Reaction Status Date / Time No Known Allergies Allergy Mild Verified 05/17/23 22:57 Home Meds Home Medications Medication Instructions Recorded Confirmed coenzyme Q10 100 mg capsule 100 mg PO QAM 03/01/20 05/17/23 (CoQ-10) [id number]-pi-pmlmi 300 mcg-K 60 1 tab PO PM 05/17/20 05/17/23 mcg-lycop 600 mcg-lutein 300 mcg tablet (Centrum Silver Men) cholecalciferol (vitamin D3) 50 50 mcg PO QAM 09/14/20 05/17/23 mcg (2,000 unit) capsule (Vitamin D3) aspirin 81 mg tablet,delayed 81 mg PO QPM 08/06/22 05/17/23 release clotrimazole-betamethasone 1 1 applic topical BID PRN Skin 08/06/22 05/17/23 %-0.05 % topical cream Irritation ascorbic acid (vitamin C) 500 mg 1,000 mg PO QPM 10/09/22 05/17/23 tablet atorvastatin 20 mg tablet 20 mg PO QPM 05/17/23 05/17/23 Previous Rx's Medication Instructions Recorded amlodipine 5 mg tablet (Norvasc) 5 mg PO QAM #90 tabs 07/02/22 CPAP Machine #1 ea 09/26/22 CPAP Supplies #1 ea 09/26/22 Results & Data (ED) Vital Signs Vital Signs - 24 hr 05/17/23 20:18 05/17/23 21:10 05/17/23 21:35 Temperature 36.7 C Temperature Source Temporal Artery Scan Pulse Rate 114 H 96 H 92 H Pulse Rhythm Regular Respiratory Rate 17 18 Blood Pressure 174/79 H Blood Pressure Mean 110 Pulse Oximetry 96 99 Oxygen Delivery Method Room Air Room Air Sepsis Recent Fever Within 48 Hours No Sepsis New/Unexplained Change in Mental Status No Sepsis Action Taken by Nursing No Action Required Laboratory Data 05/17/23 22:39 05/17/23 20:30 Lab Results 05/17/23 05/17/23 Range/Units 20:30 22:39 WBC 13.39 H (4.8-10.8) K/ul RBC 4.21 L (4.70-6.10) M/uL Hgb 11.8 L 10.4 L (14.0-18.0) g/dl Hct 36.1 L 32.0 L (42.0-52.0) % MCV 85.7 (80.0-100.0) fL MCH 28.0 (25.0-34.0) pg MCHC 32.7 (32.0-36.0) g/dL RDW Std Deviation 44.5 (36.4-46.3) fL RDW Coeff of Gavino 14.5 (11.5-14.5) % Plt Count 253 (130-400) K/uL MPV 10.5 (9.4-12.4) fL PT 10.9 (9.0-12.0) Seconds INR 1.0 (0.9-1.1) APTT 24 (21-31) Seconds PTT Ratio 0.9 Sodium 137 (136-145) mmol/L Potassium 4.1 (3.5-5.1) mmol/L Chloride 105 (98-107) mmol/L Carbon Dioxide 24 (21-32) mmol/L Anion Gap 8 (3-11) BUN 48 H (6-23) mg/dl Creatinine 0.81 (0.6-1.4) mg/dl Est Cr Clr Drug Dosing 97.7 ml/min Est GFR ( Amer) 98.7 ml/min Est GFR (Non-Af Amer) 85.1 ml/min BUN/Creatinine Ratio 59.3 H (10-20) Glucose 143 H (70-99(Fasting)) mg/dl Calcium 9.2 (8.6-10.3) mg/dl Total Bilirubin 0.6 (0.2-1.0) mg/dl AST 24 (13-39) U/L ALT 25 (7-52) U/L Alkaline Phosphatase 68 (34-104) U/L Troponin I High Sens 5.9 (0-20) pg/ml Total Protein 7.0 (6.0-8.3) gm/dl Albumin 4.0 (3.4-5.0) gm/dl Globulin 3.0 (2.5-4.0) gm/dl Albumin/Globulin Ratio 1.3 (0.9-2) Lipase 53 (11-82) U/L Blood Type O Positive Antibody Screen NEGATIVE Administered Medications Pantoprazole Sodium 40 mg/ (Dextrose) 100 mls @ 20 mls/hr IV Q5H LINO Stop: 06/16/23 21:59 Last Admin: 05/17/23 22:10 Dose: 8 mg/hr, 20 mls/hr Documented By: [facility] Discontinued Medications Sodium Chloride (Nss) 500 mls @ 999 mls/hr IV .Q31M ONE Stop: 05/17/23 21:39 Last Infusion: 05/17/23 21:46 Dose: Infused Documented By: [facility] Admin: 05/17/23 21:14 Dose: 999 mls/hr Documented By: [place] Pantoprazole Sodium 80 mg/ (Dextrose) 120 mls @ 480 mls/hr IV NOW ONE Stop: 05/17/23 21:51 Last Infusion: 05/17/23 22:24 Dose: Infused Documented By: [facility] Admin: 05/17/23 22:08 Dose: 480 mls/hr Documented By: TERRELL Pantoprazole Sodium (Pantoprazole Bolus/Drip) 1 each IV NOW STA Stop: 05/17/23 21:38 Last Admin: 05/17/23 22:15 Dose: Not Given Documented By: [facility] Discharge Plan Visit Data Chief Complaint: Rectal Bleed Stated Complaint: BLOOD IN STOOL ED Provider: Rickey Hwang Discharge Problem: Acute upper gastrointestinal bleeding, Symptomatic anemia, Weakness Discharge Instructions Interventions: ED Discharge Assessment Last Done: 05/17/23 23:50
[2023-05-17 21:11] LABS: Partial Thromboplastin Ratio 0.9; Partial Thromboplastin Time 24 Seconds (21-31); Prothrombin Time 10.9 Seconds (9.0-12.0)
[2023-05-17] MEDS: SODIUM CHLORIDE 0.9% 500 ML IV ONE (21:14)
[2023-05-17 21:25] LABS: Hematocrit (blood only) 36.1 % (42.0-52.0); Hemoglobin 11.8 g/dl (14.0-18.0); Mean Corpuscular Hgb Conc 32.7 g/dL (32.0-36.0); Mean Corpuscular Volume 85.7 fL (80.0-100.0); Mean Platelet Volume 10.5 fL (9.4-12.4); Platelet Count 253 K/uL (130-400); RDW Coefficient of Variation 14.5 % (11.5-14.5); RDW Standard Deviation 44.5 fL (36.4-46.3); Red Blood Count 4.21 M/uL (4.70-6.10); White Blood Count 13.39 K/ul (4.8-10.8)
--- NOTE | 2023-05-17 21:43 | History & Physical Report ---
Date of Service May 17, 2023 Assessment & Plan (1) GIB (gastrointestinal bleeding): Plan: -Hemoglobin of 10.4 in the ED, previous hemoglobin of 16.5 back in January. -PT/INR, CMP, and lipase benign. Slight elevated BUN of 48. -EKG showing sinus tach with occasional PVCs. -Protonix bolus and drip started. -NSS at 125 mL an hour. -H&H every 6 hours. -Fecal occult blood pending collection. -N.p.o. at this time. -CBC, CMP, and mag in AM. -GI consulted, appreciate recommendation. -Most likely a upper GI bleed given black tarry stools, elevation in BUN. (2) Hypertension: Plan: -Holding home medications given n.p.o. status. -Blood pressure adequate (3) H/O ventral hernia repair: Plan: - noted. (4) Severe obstructive sleep apnea: Plan: -Uses CPAP at home, -Continue CPAP nightly. (5) Hyperlipidemia: Plan: -Holding home medications given n.p.o. status. (6) History of prostate cancer: Plan: - No urination issues at this time. History of Present Illness Chief Complaint: GIB Primary Care Provider: Austyn Navarro MD Patient is a 69-year-old male with past medical history of ANGEL, obesity, dyslipidemia, prostate cancer, hypertension, and coronary artery calcifications. Who presents to the hospital with black/tarry stools which started yesterday. He is on aspirin. He had 3-4 episodes of black tarry stools. He also notes some epigastric pain. Denies any changes to his med recently. He denies any stomach pain with eating or after eating. Does state though that for a while he has been feeling full easier. He has not been eating much since these episodes and was hoping that it would just go away. He denies any chest pain or shortness of breath. Denies any nausea vomiting or diarrhea. Denies any dysuria, urinary frequency, urinary urgency, or other symptoms. Overall he feels okay but is concerned about the black tarry stools. Allergies Allergy/AdvReac Type Severity Reaction Status Date / Time No Known Allergies Allergy Mild Verified 05/17/23 22:57 Home Medications Medication Instructions Recorded Confirmed Type coenzyme Q10 100 mg capsule 100 mg PO QAM 03/01/20 05/17/23 History (CoQ-10) cdapkmev-ti-bjqqd 300 mcg-K 60 1 tab PO PM 05/17/20 05/17/23 History mcg-lycop 600 mcg-lutein 300 mcg tablet (Centrum Silver Men) cholecalciferol (vitamin D3) 50 50 mcg PO QAM 09/14/20 05/17/23 History mcg (2,000 unit) capsule (Vitamin D3) amlodipine 5 mg tablet (Norvasc) 5 mg PO QAM #90 tabs 07/02/22 05/17/23 Rx aspirin 81 mg tablet,delayed 81 mg PO QPM 08/06/22 05/17/23 History release clotrimazole-betamethasone 1 1 applic topical BID PRN Skin 08/06/22 05/17/23 History %-0.05 % topical cream Irritation CPAP Machine #1 ea 09/26/22 05/17/23 Rx CPAP Supplies #1 ea 09/26/22 05/17/23 Rx ascorbic acid (vitamin C) 500 mg 1,000 mg PO QPM 10/09/22 05/17/23 History tablet atorvastatin 20 mg tablet 20 mg PO QPM 05/17/23 05/17/23 History Past Med/Surg History Medical History (Updated 05/18/23 @ 00:13 by Rickey Hwang DO) Peripheral neuropathy Neuropathy Osteoarthritis Hyperlipidemia Obesity History of stroke CVA vs. TIA (associated with single episode of a. fib at age 28) History of atrial fibrillation Remote episodic history (age 28)- was put on Digoxin for some time, but then changed PCPs and new PCP did event monitor (which showed no episodes of a. fib) so PCP discontinued digoxin, no issues since History of skin cancer precancerous s/p excision (head) History of prostate cancer dx 2010, s/p prostactectomy, no chemo or xrt Sleep apnea CPAP (non-compliant) Seasonal allergies Hypertension Surgical History History of cataract surgery right Status post right knee replacement (~05/2022) Difficult airway for intubation Open Ventral Hernia Repair (04/20/21): Grade 2 view, Glidescope#4, ETT 8.0, atraumatic at [facility] [place]. No issues noted per post-op anesthesia progress note. History of total knee replacement Left TKA (06/02/20): SAB x1 attempt + PNB at [facility]. No issues noted per post-op anesthesia progress note. H/O lumbar discectomy [place] teeth removed H/O ventral hernia repair Open Ventral Hernia Repair (04/20/21): Grade 2 view, Glidescope#4, ETT 8.0, atraumatic at [facility] [place]. No issues noted per post-op anesthesia progress note. History of reverse total replacement of right shoulder joint Right reverse total shoulder arthroplasty Hx of appendectomy Hx of colonoscopy Hx of umbilical hernia repair Hx of prostatectomy Family History Father Alzheimer disease Mother Suicide Grandmother Myocardial infarction Other No family history of adverse response to anesthesia Prostate cancer Denies family history of Ovarian cancer Breast cancer Colorectal cancer Social History Smoking Status: Never smoker Tobacco Type: Cigars Age Started Using Tobacco: 15; Age Quit Using Tobacco: 54; packs per day: 5; Second Hand Exposure: No; Do You Dip or Chew Tobacco: No; Hx Alcohol Use: No Hx Substance Use: No Preferred Language: Korean Communication Ability: Effective Visual Impairment: No Limitations Hearing Ability: Normal Assistant Director Of Admissions Required: No Beliefs That Will Affect Care: None marital status: Current Living Situation: Spouse current occupational status: employed and retired current occupation: [employer] Driver Other Information That Helps Us Care for You: No Feels Safe at Home: Yes Safety Concerns: Feels Safe At This Time Childhood Exposure to Second-Hand Smoke: No Diet: regular caffeine: Yes during the past year weight has: remained stable Dental Care, Regularly: Yes Physical Activity Frequency: Does not Exercise Seatbelt Use: always Sunscreen Use: Yes Do you think of yourself as: straight/heterosexual Assistive Devices: Cane and Glasses Review of Systems Review of Systems: All systems reviewed & are unremarkable except as noted in Subjective Physical Exam Physical Exam: Constitutional: well-appearing, no acute distress HEENT: NCAT, no conjunctival injection CV: regular rhythm, no murmur appreciated, extremities well-perfused, no LE edema Resp: CTABL, no wheezes/rales/rhonchi appreciated, no increased work of breathing GI: soft, nondistended, mild epigastric tenderness to palpation, BS normoactive MSK: no gross deformities appreciated Skin: warm, dry, no rash appreciated Neuro: alert, oriented, no focal neurologic deficit appreciated Results & Data Results & Data Vital Signs (Past 12 Hours) Vital Signs Temp Pulse Resp BP Pulse Ox O2 Del Method 05/17/23 21:10 96 H 18 99 Room Air 05/17/23 20:18 36.7 C 114 H 17 174/79 H 96 Room Air Supervising Physician Co-Signing Physician Notes Patient seen and examined, chart reviewed, case discussed with Dr. Jin and I agree with the assessment and plan as above Resident Activity Tracking Resident Involvement: Resident Care Provided Care Provided: Adult Hospital Medicine
[2023-05-17] MEDS: PANTOprazole 80 MG in DEXTROSE 5% 100 ML IV ONE (22:08)
[2023-05-17] MEDS: PANTOprazole 40 MG in DEXTROSE 5% MINI-B 100 ML IV SCH (22:10)
[2023-05-17] MEDS: PANTOPRAZOLE BOLUS/DRIP IV STA (22:15)
[2023-05-17 22:52] LABS: Hemoglobin 10.4 g/dl (14.0-18.0)
[2023-05-18 04:29] LABS: Hematocrit (blood only) 29.9 % (42.0-52.0); Hemoglobin 9.7 g/dl (14.0-18.0)
--- NOTE | 2023-05-18 06:34 | Billing Data ---
Date of Service May 17, 2023 Coding Level of Care Code 03428 INT INP/OBS CARE
[2023-05-18] MEDS ORDERED: ONDANSETRON INJ 2 MG/ML 2 ML VIAL IV PRN (09:57)
[2023-05-18] MEDS: SODIUM CHLORIDE 0.9% 1,000 ML IV SCH (10:11)
[2023-05-18 11:17] LABS: Hematocrit (blood only) 30.9 % (42.0-52.0); Hemoglobin 9.9 g/dl (14.0-18.0); Mean Corpuscular Hemoglobin 27.7 pg (25.0-34.0); Mean Corpuscular Volume 86.3 fL (80.0-100.0); Mean Platelet Volume 10.3 fL (9.4-12.4); Platelet Count 182 K/uL (130-400); RDW Coefficient of Variation 14.6 % (11.5-14.5); RDW Standard Deviation 46.3 fL (36.4-46.3); Red Blood Count 3.58 M/uL (4.70-6.10); White Blood Count 10.72 K/ul (4.8-10.8)
[2023-05-18 11:25] LABS: BUN Creatinine Ratio 43.4 (10-20); Calcium 8.5 mg/dl (8.6-10.3); Creatinine Clr Calc Pharmacy 104.1 ml/min; Est GFR (African American) 101.3 ml/min; Est GFR (Non-African American) 87.4 ml/min; Potassium 4.4 mmol/L (3.5-5.1)
--- NOTE | 2023-05-18 11:42 | Hospitalist Progress Note ---
Date of Service May 18, 2023 Assessment & Plan (1) GIB (gastrointestinal bleeding): Plan: Presented with melena x 1-2 days, lightheadedness, sinus tachycardia, normal BPs No abdominal pain, no NSAID use, no heartburn symptoms Does take ASA daily Hgb 11.8 on arrival down from 16.5 in 01/2023; coags normal, with elevated BUN of 48, normal LFTs Suspect upper GI bleed from ulcer or less likely malignancy as he had a normal hgb just a few months ago and no GI symptoms Continue Protonix drip Consult GI appreciated-I discussed care with GI-plan for EGD tomorrow Continue NPO status Holding ASA Continue IVFs but decrease down to maintenance at 80mL/hr Check CBC at 1500 today and if stable, repeat in AM or sooner prn recurrent bleeding. I obtained informed consent for blood transfusion and is on chart as needed (2) Acute blood loss anemia: Plan: as above, hgb now down to 9.6 from baseline 16 hemodynamically stable transfuse if continues to bleed, becomes hemodynamically unstable, or if hgb drops to 7 Follow CBC (3) Hypertension: Plan: Holding home amlodipine Blood pressure stable (4) Severe obstructive sleep apnea: Plan: Continue CPAP nightly (5) Hyperlipidemia: Plan: Holding home statin while NPO (6) History of prostate cancer: Plan: No urination issues at this time Plan DVT proph-add SCDs Dispo-continued stay on tele Admission and Anticipated Discharge Date Admission Date: May 17, 2023 Subjective Pt reports having a black tarry stool at 0700 this AM but none since then. No abd pain, no heartburn. Does feel a little lightheaded with getting up today. Pt denies CP, SOB Tele with NSR rates 80s Physical Exam Constitutional: WD/WN, vitals as above Neck: trachea midline, no thyromegaly Respiratory: normal respiratory effort, lungs clear to auscultation Cardiovascular: Rate/Rhythm: regular rate and regular rhythm Heart Sounds: + murmur (2/6 systolic murmur at apex) Chest (Breasts): Chest: normal inspection of chest Gastrointestinal (Abdomen): normal bowel sounds, soft, nontender, no hepatosplenomegaly Musculoskeletal: Extremities: extremities normal to inspection; no cyanosis and no clubbing Skin: no rashes, warm and dry Neurologic: moves all extremities and awake; no focal motor deficits Psychiatric: A+Ox3, euthymic affect Lymphatic: no lymphedema Results & Data Results & Data Vital Signs (Past 12 Hours) Vital Signs Pulse Pulse Resp BP Pulse Ox O2 Del Method 05/18/23 07:19 65 16 129/98 98 Room Air 05/18/23 06:57 78 05/18/23 04:10 78 16 112/70 97 Room Air 05/18/23 01:44 82 05/18/23 01:00 84 16 154/81 H 97 Room Air Laboratory Results CBC, repeat CBC, BMP, fecal occult reviewed PG Care Time/CCT Total # of Minutes Spent Total Time Spent with Patient: Total time spent is greater than 50% in coordination of care (as documented) at patient's floor/unit and/or counseling patient: Coding Level of Care Code 30498 SUB INP/OBS CARE 3/50MIN Diagnoses GIB (gastrointestinal bleeding) K92.2 Acute blood loss anemia D62 Hypertension I10 Severe obstructive sleep apnea G47.33 Hyperlipidemia E78.5 History of prostate cancer Z85.46
[2023-05-18 15:53] LABS: Hematocrit (blood only) 29.4 % (42.0-52.0); Hemoglobin 9.6 g/dl (14.0-18.0); Mean Corpuscular Hemoglobin 28.3 pg (25.0-34.0); Mean Corpuscular Hgb Conc 32.7 g/dL (32.0-36.0); Mean Corpuscular Volume 86.7 fL (80.0-100.0); Mean Platelet Volume 9.8 fL (9.4-12.4); Platelet Count 183 K/uL (130-400); RDW Coefficient of Variation 14.7 % (11.5-14.5); Red Blood Count 3.39 M/uL (4.70-6.10); White Blood Count 8.98 K/ul (4.8-10.8)
--- NOTE | 2023-05-18 17:12 | Communication Note ---
Date of Service: May 18, 2023 Chart reviewed, patient presented with melena, drop in H/H, hemodynamically stable. Repeat H/H is stable. Plan: EGD tomorrow. IV PPI. NPO.
--- NOTE | 2023-05-19 06:30 | Electrocardiogram Report ---
Test Reason : Blood Pressure : / mmHG Vent. Rate : 101 BPM Atrial Rate : 101 BPM P-R Int : 154 ms QRS Dur : 082 ms QT Int : 322 ms P-R-T Axes : 043 -64 072 degrees QTc Int : 417 ms Poor data quality, interpretation may be adversely affected Sinus tachycardia Left anterior fascicular block Cannot rule out Inferior infarct , age undetermined Abnormal ECG When compared with ECG of 05-AUG-2022 23:55, No significant change Confirmed by Alexei Castillo ([id number]) on 05/19/2023 6:30:17 AM Referred By: REFERRED SELF Confirmed By:Alexei Castillo
[2023-05-19 07:25] LABS: Basophils # (auto) 0.02 K/uL (0.00-0.20); Basophils % (auto) 0.2 %; Eosinophils # (auto) 0.25 K/uL (0.00-0.50); Eosinophils % (auto) 2.7 %; Hematocrit (blood only) 28.2 % (42.0-52.0); Hemoglobin 9.3 g/dl (14.0-18.0); Immature Granulocytes # (auto) 0.05 K/uL (0.01-0.20); Immature Granulocytes % (auto) 0.5 %; Lymphocytes # (auto) 2.24 K/uL (1.20-3.40); Lymphocytes % (auto) 24.1 %; Mean Corpuscular Hemoglobin 28.4 pg (25.0-34.0); Mean Platelet Volume 10.3 fL (9.4-12.4); Monocytes # (auto) 0.64 K/uL (0.11-0.59); Monocytes % (auto) 6.9 %; Neutrophils # (auto) 6.08 K/uL (1.40-6.50); Neutrophils % (auto) 65.6 %; Platelet Count 183 K/uL (130-400); RDW Standard Deviation 46.2 fL (36.4-46.3); Red Blood Count 3.28 M/uL (4.70-6.10); White Blood Count 9.28 K/ul (4.8-10.8)
[2023-05-19 07:44] LABS: BUN Creatinine Ratio 23.2 (10-20); Calcium 8.4 mg/dl (8.6-10.3); Creatinine Clr Calc Pharmacy 96.5 ml/min; Est GFR (African American) 98.2 ml/min; Est GFR (Non-African American) 84.7 ml/min; Potassium 3.9 mmol/L (3.5-5.1)
--- NOTE | 2023-05-19 09:58 | Gastrointestinal Consultation ---
Date of Consultation May 19, 2023 Assessment & Plan (1) GIB (gastrointestinal bleeding): Discussed case with Dr. Gupta who advised on plan. - patient is agreeable to an EGD and will proceed with this for today to further evaluate his melena. - continue with PPI drip. - continue to monitor his hgb/hct and transfused as needed. Supervising Physician Co-Signing Physician Notes I saw the patient and agree with the findings as documented by OSEAS Odonnell History of Present Illness Reason for Consultation: GIB Requesting Physician: Aftab Jin DO Attending Physician: Real Martinez MD History of Present Illness Patient is a 77 year old male with a past medical history of ANGEL, obesity, dyslipidemia, prostate cancer, hypertension, and coronary artery calcifications who presented to the ED with complaints of black, tarry stools which started Friday of last week. He is on aspirin but denies other nsaid use. He tells me he had 3-4 episodes of black tarry stools since symptoms started which has been concerning him. He denies any changes to his med recently or blood thinners. He denies any stomach pain, nausea, vomiting, or heartburn.Upon evaluation he had Hgb of 10.4. As of today, his 05/19 is hgb 9.3. He has been NPO and has is agreeable to having an EGD to further evaluate his symptoms. Colonoscopy 09/26/21 eight 3-5 mm polyps in ascending colon, transverse colon, and cecum. diverticulosis and internal hemorrhoids. pathology: Colon, ascending, polyps, polypectomy: - Two fragments of tubular adenoma. Cecum, polyps, polypectomy: - Multiple fragments of sessile serrated adenoma and tubular adenoma. Colon, transverse, polypectomy: - Tubular adenoma. Allergies Allergy/AdvReac Type Severity Reaction Status Date / Time No Known Allergies Allergy Mild Verified 05/17/23 22:57 Home Medications Medication Instructions Recorded Confirmed Type coenzyme Q10 100 mg capsule 100 mg PO QAM 03/01/20 05/17/23 History (CoQ-10) vlnlllet-rg-dwdsh 300 mcg-K 60 1 tab PO PM 05/17/20 05/17/23 History mcg-lycop 600 mcg-lutein 300 mcg tablet (Centrum Silver Men) cholecalciferol (vitamin D3) 50 50 mcg PO QAM 09/14/20 05/17/23 History mcg (2,000 unit) capsule (Vitamin D3) amlodipine 5 mg tablet (Norvasc) 5 mg PO QAM #90 tabs 07/02/22 05/17/23 Rx aspirin 81 mg tablet,delayed 81 mg PO QPM 08/06/22 05/17/23 History release clotrimazole-betamethasone 1 1 applic topical BID PRN Skin 08/06/22 05/17/23 History %-0.05 % topical cream Irritation CPAP Machine #1 ea 09/26/22 05/17/23 Rx CPAP Supplies #1 ea 09/26/22 05/17/23 Rx ascorbic acid (vitamin C) 500 mg 1,000 mg PO QPM 10/09/22 05/17/23 History tablet atorvastatin 20 mg tablet 20 mg PO QPM 05/17/23 05/17/23 History Patient History Medical History Peripheral neuropathy Neuropathy Osteoarthritis Hyperlipidemia Obesity History of stroke CVA vs. TIA (associated with single episode of a. fib at age 28) History of atrial fibrillation Remote episodic history (age 28)- was put on Digoxin for some time, but then changed PCPs and new PCP did event monitor (which showed no episodes of a. fib) so PCP discontinued digoxin, no issues since History of skin cancer precancerous s/p excision (head) History of prostate cancer dx 2010, s/p prostactectomy, no chemo or xrt Sleep apnea CPAP (non-compliant) Seasonal allergies Hypertension Surgical History History of cataract surgery right Status post right knee replacement (~05/2022) Difficult airway for intubation Open Ventral Hernia Repair (04/20/21): Grade 2 view, Glidescope#4, ETT 8.0, [place] [facility] [place] No issues noted per post-op anesthesia progress note. History of total knee replacement Left TKA (06/02/20): SAB x1 attempt + PNB at [facility]. No issues noted per post-op anesthesia progress note. H/O lumbar discectomy [place] teeth removed H/O ventral hernia repair Open Ventral Hernia Repair (04/20/21): Grade 2 view, Glidescope#4, ETT 8.0, atraumatic at [facility] [place]. No issues noted per post-op anesthesia progress note. History of reverse total replacement of right shoulder joint Right reverse total shoulder arthroplasty Hx of appendectomy Hx of colonoscopy Hx of umbilical hernia repair Hx of prostatectomy Family History Father Alzheimer disease Mother Suicide Grandmother Myocardial infarction Other No family history of adverse response to anesthesia Prostate cancer Denies family history of Ovarian cancer Breast cancer Colorectal cancer Social History Smoking Status: Never smoker Tobacco Type: Cigars Age Started Using Tobacco: 15; Age Quit Using Tobacco: 54; packs per day: 5; Second Hand Exposure: No; Do You Dip or Chew Tobacco: No; Hx Alcohol Use: No Hx Substance Use: No Preferred Language: Sami Communication Ability: Effective Visual Impairment: No Limitations Hearing Ability: Normal Hot Bread Baker Required: No Beliefs That Will Affect Care: None marital status: Current Living Situation: Spouse current occupational status: employed and retired current occupation: [employer] Driver Feels Safe at Home: Yes Childhood Exposure to Second-Hand Smoke: No Diet: regular caffeine: Yes during the past year weight has: remained stable Dental Care, Regularly: Yes Physical Activity Frequency: Does not Exercise Seatbelt Use: always Sunscreen Use: Yes Do you think of yourself as: straight/heterosexual Assistive Devices: Cane Review of Systems Review of Systems: All systems reviewed & are unremarkable except as noted in HPI & below Physical Exam Constitutional: WD/WN, vitals as above Respiratory: normal respiratory effort, lungs clear to auscultation Cardiovascular: RRR, no murmur, no edema Gastrointestinal (Abdomen): normal bowel sounds, soft, nontender, no hepatosplenomegaly Skin: no rashes, warm and dry Psychiatric: Orientation: alert and oriented x 3 Results & Data Vital Signs (Past 12 Hours) Vital Signs Temp Pulse Pulse Resp BP Pulse Ox O2 Del Method 05/19/23 07:40 97.9 F 75 18 113/65 96 Room Air 05/19/23 03:48 97.5 F L 76 18 126/65 96 Room Air 05/19/23 01:07 73 20 96 05/18/23 22:44 98.1 F 81 19 142/68 H 95 Room Air 05/18/23 22:00 79 FiO2 05/19/23 07:40 05/19/23 03:48 05/19/23 01:07 21 05/18/23 22:44 05/18/23 22:00 PG Care Time/CCT Total # of Minutes Spent Total Time Spent with Patient: Total time spent is greater than 50% in coordination of care (as documented) at patient's floor/unit and/or counseling patient: Coding Level of Care Code 14493 INT INP/OBS CARE 2/55MIN Diagnoses GIB (gastrointestinal bleeding) K92.2
[2023-05-19] MEDS ORDERED: ePHEDrine sulfate 50 MG/ML AMP IV PRN (13:44)
[2023-05-19] MEDS ORDERED: ATROPINE SULFATE 0.1 MG/ML 10ML SYR IV PRN (13:44)
--- NOTE | 2023-05-19 13:44 | Anesthesiology Consultation ---
Date of Service May 19, 2023 Assessment & Plan Chart Review Chart Review: Acceptable Risk for Surgery Consults Requested none ASA ASA3 Proposed Anesthesia Anesthesia Type: General and MAC Risk / Benefits Reviewed With: PT / POA / Parent / Guardian, Accepts Plan and Informed Consent Obtained History Surgery Operation Date: 05/19/23 17:30 Proposed Procedures p Esophagogastroduodenoscopy Dr. Gupta - Eliezer Gupta MD Height/Weight Height: 5 ft 10 in Weight: 118.841 kg Allergies Allergy/AdvReac Type Severity Reaction Status Date / Time No Known Allergies Allergy Mild Verified 05/17/23 22:57 Medications Home Medications Medication Instructions Recorded Confirmed Last Taken coenzyme Q10 100 mg capsule 100 mg PO QAM 03/01/20 05/17/23 02/04/23 (CoQ-10) timklvkj-hj-ndrda 300 mcg-K 60 1 tab PO PM 05/17/20 05/17/23 02/04/23 mcg-lycop 600 mcg-lutein 300 mcg tablet (Centrum Silver Men) cholecalciferol (vitamin D3) 50 50 mcg PO QAM 09/14/20 05/17/23 02/04/23 mcg (2,000 unit) capsule (Vitamin D3) amlodipine 5 mg tablet (Norvasc) 5 mg PO QAM #90 tabs 07/02/22 05/17/23 04/09/23 08:30 aspirin 81 mg tablet,delayed 81 mg PO QPM 08/06/22 05/17/23 02/04/23 release clotrimazole-betamethasone 1 1 applic topical BID PRN Skin 08/06/22 05/17/23 02/04/23 %-0.05 % topical cream Irritation CPAP Machine #1 ea 09/26/22 05/17/23 02/04/23 CPAP Supplies #1 ea 09/26/22 05/17/23 02/04/23 ascorbic acid (vitamin C) 500 mg 1,000 mg PO QPM 10/09/22 05/17/23 02/04/23 tablet atorvastatin 20 mg tablet 20 mg PO QPM 05/17/23 05/17/23 Unknown Active Medications Generic Name Dose Route Start Last Admin Trade Name Freq PRN Reason Stop Dose Admin Pantoprazole Sodium 40 mg/ 100 mls @ 20 mls/hr 05/17/23 22:00 05/19/23 12:08 Dextrose IV 06/16/23 21:59 8 mg/hr Q5H LINO 20 mls/hr Administration 8 MG/HR Sodium Chloride 1,000 mls @ 80 mls/hr 05/18/23 09:57 05/19/23 02:07 Nss IV 06/17/23 09:56 80 mls/hr .[id number] LINO Administration NPO Date Last Intake of Fluids: 05/19/23 Time Last Intake of Fluids: 09:00 Last Intake of Fluids Comment: ice chips Date Last Intake of Solids: 05/17/23 Time Last Intake of Solids: 17:00 Last Intake of Solids Comment: cereal Past Medical History Medical History Peripheral neuropathy Neuropathy Osteoarthritis Hyperlipidemia Obesity History of stroke CVA vs. TIA (associated with single episode of a. fib at age 28) History of atrial fibrillation Remote episodic history (age 28)- was put on Digoxin for some time, but then changed PCPs and new PCP did event monitor (which showed no episodes of a. fib) so PCP discontinued digoxin, no issues since History of skin cancer precancerous s/p excision (head) History of prostate cancer dx 2010, s/p prostactectomy, no chemo or xrt Sleep apnea CPAP (non-compliant) Seasonal allergies Hypertension Exercise / Class Metabolic Activity III < 4 Walking/Shop/Light housework Past Family History Family History Father Alzheimer disease Mother Suicide Grandmother Myocardial infarction Other No family history of adverse response to anesthesia Prostate cancer Denies family history of Ovarian cancer Breast cancer Colorectal cancer Past Surgical History Surgical History History of cataract surgery right Status post right knee replacement (~05/2022) Difficult airway for intubation Open Ventral Hernia Repair (04/20/21): Grade 2 view, Glidescope#4, ETT 8.0, [place] [facility] [place] No issues noted per post-op anesthesia progress note. History of total knee replacement Left TKA (06/02/20): SAB x1 attempt + PNB at [facility]. No issues noted per post-op anesthesia progress note. H/O lumbar discectomy [place] teeth removed H/O ventral hernia repair Open Ventral Hernia Repair (04/20/21): Grade 2 view, Glidescope#4, ETT 8.0, [place] [facility] No issues noted per post-op anesthesia progress note. History of reverse total replacement of right shoulder joint Right reverse total shoulder arthroplasty Hx of appendectomy Hx of colonoscopy Hx of umbilical hernia repair Hx of prostatectomy Social History Smoking Status: Never smoker tobacco type: cigars Do You Dip or Chew Tobacco: No Hx Alcohol Use: No Hx Substance Use: No substance use type: does not use Review of Systems ROS Unobtainable: All systems reviewed & are unremarkable except as noted in HPI & below Physical Exam Vital Signs Last Vital Signs Temp 36.3 C L 05/19/23 13:31 Pulse 74 05/19/23 13:31 Resp 18 05/19/23 13:31 BP 132/65 05/19/23 13:31 Pulse Ox 98 05/19/23 13:31 O2 Del Method Room Air 05/19/23 13:31 FiO2 21 05/19/23 01:07 ENMT Thyromental Distance: > or= 3.5 Finger Breadths Mallampati Class: II Respiratory normal respiratory effort Auscultation: lungs clear to auscultation bilaterally Cardiovascular Rate/Rhythm: regular rate and regular rhythm Psychiatric Orientation: alert and oriented x 3 Testing Laboratory Results 05/19/23 06:53 05/19/23 06:53 PT 10.9 Seconds (9.0-12.0) 05/17/23 20:30 INR 1.0 (0.9-1.1) 05/17/23 20:30 APTT 24 Seconds (21-31) 05/17/23 20:30 Blood Type O Positive 05/17/23 20:30 Antibody Screen NEGATIVE 05/17/23 20:30
--- NOTE | 2023-05-19 15:00 | Anesthesiology Progress Note ---
Date of Service May 19, 2023 Anesthesia Post Procedure Vital Signs Vital Signs: Temp Pulse Pulse Resp BP Pulse Ox O2 Del Method 05/19/23 14:49 75 12 102/41 L 99 Room Air 05/19/23 14:34 67 12 98/46 L 95 Room Air, Oxymask 05/19/23 13:31 36.3 C L 74 18 132/65 98 Room Air 05/19/23 11:25 36.4 C L 75 18 133/81 96 Room Air 05/19/23 09:57 75 05/19/23 08:30 Room Air 05/19/23 07:40 36.6 C 75 18 113/65 96 Room Air 05/19/23 03:48 36.4 C L 76 18 126/65 96 Room Air 05/19/23 01:07 73 20 96 05/18/23 22:44 36.7 C 81 19 142/68 H 95 Room Air 05/18/23 22:00 79 05/18/23 19:36 36.6 C 85 20 144/71 H 95 Room Air 05/18/23 15:58 36.5 C 77 18 135/70 95 Room Air O2 Flow Rate FiO2 05/19/23 14:49 05/19/23 14:34 5 05/19/23 13:31 05/19/23 11:25 05/19/23 09:57 05/19/23 08:30 05/19/23 07:40 05/19/23 03:48 05/19/23 01:07 21 05/18/23 22:44 05/18/23 22:00 05/18/23 19:36 05/18/23 15:58 Pain Intensity Lower Abdomen: Pain Intensity: 2 Transfer of Care Handoff Completed per policy Notes Mental Status: alert / awake / arousable and participated in evaluation Nausea / Vomiting: adequately controlled Pain: adequately controlled Airway Patency, RR, SpO2: stable & adequate BP & HR: stable & adequate Hydration State: stable & adequate Anesthetic Complications: no major complications apparent and Pt Satisfied with anesthetic care
--- NOTE | 2023-05-19 15:01 | GI REPORT ---
Patient Name: True Burton Procedure Date: 05/19/2023 1:58 PM Date of : 1945 Admit Type: Inpatient Age: 77 Gender: Male Attending MD: Eliezer Gupta MD, Procedure: Upper GI endoscopy Providers: Eliezer Gupta MD Referring MD: Real Martinez Indications: Melena Medicines: Monitored Anesthesia Care Complications: No immediate complications. Estimated blood loss: None. Estimated Blood Loss: Estimated blood loss: none. Procedure: Pre-Anesthesia Assessment: - Prior Anticoagulants: The patient has taken no anticoagulant or antiplatelet agents. - ASA Grade Assessment: III - A patient with severe systemic disease. After obtaining informed consent, the endoscope was passed under direct vision. Throughout the procedure, the patient's blood pressure, pulse, and oxygen saturations were monitored continuously. The Endoscope was introduced through the mouth, and advanced to the second part of duodenum. The upper GI endoscopy was accomplished without difficulty. The patient tolerated the procedure well. Findings: The examined esophagus was normal. Many non-bleeding cratered gastric ulcers with no stigmata of bleeding were found in the gastric antrum. Biopsies were taken with a cold forceps for Helicobacter pylori testing. Estimated blood loss: none. 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 Coagulation for hemostasis using argon plasma at 1.2 liters/minute and 30 siegel was successful. Estimated blood loss: none. The duodenal bulb and second portion of the duodenum were normal. Impression: - Normal esophagus. - Non-bleeding gastric ulcers with no stigmata of bleeding. Biopsied. - Gastric antral vascular ectasia. Treated with argon plasma coagulation (APC). - Normal duodenal bulb and second portion of the duodenum. Recommendation: - Advance diet as tolerated today. - Await pathology results. -protonix 40 mg daily for 8 weeks minimum - [facility] patient [facility] care. - Repeat upper endoscopy in 8 weeks to check healing. Eliezre Gupta MD 05/19/2023 3:00:50 PM This report has been signed electronically. Note Initiated On: 05/19/2023 1:58 PM Number of Addenda: 0 I attest to the content of the Intraoperative Record and orders documented therein, exceptions below {[id number]}
[2023-05-19 15:57] LABS: Hematocrit (blood only) 29.4 % (42.0-52.0); Hemoglobin 9.4 g/dl (14.0-18.0)
--- NOTE | 2023-05-19 16:18 | Hospitalist Progress Note ---
Date of Service May 19, 2023 Assessment & Plan (1) GIB (gastrointestinal bleeding): Plan: Appears to be upper GI source associated with melena. Continue Protonix drip and n.p.o. status. GI consultation and recommendations appreciated. EGD later today, May 19. (2) Acute blood loss anemia: Plan: Hemoglobin has drifted down to 8.3, partly delusional from IV fluids. No transfusion needed at this point. Continue serial labs. (3) Hypertension: Plan: Currently stable. Amlodipine is on hold (4) Severe obstructive sleep apnea: Plan: Stable. Continue CPAP nightly Plan Await EGD results. Hopefully home tomorrow, May 20 Admission and Anticipated Discharge Date Admission Date: May 17, 2023 Subjective Alert and oriented. No complaints. is at the bedside. EGD will be completed later today, May 19. Continue n.p.o. status for now. He remains on a Protonix drip. Amlodipine is on hold. Hemoglobin down slightly to 8.3. Review of Systems 2 Review of Systems: Constitutional-no fever or chills ENT-no blurred vision, no double vision, no epistaxis, no sore throat Respiratory-no cough, no wheezing, no shortness of breath Cardiac-no palpitations, no chest pain, no syncope GI-no nausea, vomiting, diarrhea, hematochezia. He has had melena for the past several days -no urinary retention, no urinary incontinence, no dysuria, no hematuria Musculoskeletal-no joint pain, no muscle tenderness Skin-no bruising, no rashes, no pruritus Neuro-no isolated weakness, no paresthesia, no syncope Psych-no depression, no anxiety Physical Exam 2 Physical Exam: General-alert and oriented x3, no fever, no chills HEENT-head atraumatic and normocephalic, pupils equal and reactive to light, extraocular muscles intact Neck-no lymphadenopathy or thyromegaly, trachea midline Chest-clear to auscultation. No rales, wheezing or rhonchi Cardiac-regular rate and rhythm, normal S1 and S2 Abdomen-normal bowel sounds, nontender, no hepatosplenomegaly Extremities-no cyanosis, clubbing, or edema Neuro-cranial nerves II through XII intact, motor and sensory function within normal limits, strength symmetrical, no focal deficits Psych-normal affect, normal mood Results & Data Results & Data Vital Signs (Past 12 Hours) Vital Signs Temp Pulse Pulse Resp BP Pulse Ox O2 Del Method 05/19/23 15:04 80 12 112/68 99 Room Air 05/19/23 14:49 75 12 102/41 L 99 Room Air 05/19/23 14:34 67 12 98/46 L 95 Room Air, Oxymask 05/19/23 13:31 36.3 C L 74 18 132/65 98 Room Air 05/19/23 11:25 36.4 C L 75 18 133/81 96 Room Air 05/19/23 09:57 75 05/19/23 08:30 Room Air 05/19/23 07:40 36.6 C 75 18 113/65 96 Room Air O2 Flow Rate 05/19/23 15:04 05/19/23 14:49 05/19/23 14:34 5 05/19/23 13:31 05/19/23 11:25 05/19/23 09:57 05/19/23 08:30 05/19/23 07:40 Laboratory Results 05/19/23 15:45 05/19/23 06:53 PG Care Time/CCT Total # of Minutes Spent Total Time Spent with Patient: Total time spent is greater than 50% in coordination of care (as documented) at patient's floor/unit and/or counseling patient: Coding Level of Care Code 03301 SUB INP/OBS CARE 3/50MIN Diagnoses GIB (gastrointestinal bleeding) K92.2 Acute blood loss anemia D62 Hypertension I10 Severe obstructive sleep apnea G47.33
[2023-05-19] MEDS: SUCRALFATE 1 GM TAB PO STA (17:37)
[2023-05-19 19:41] VITALS: RESP 18
[2023-05-19] MEDS: SUCRALFATE 1 GM TAB PO SCH (20:44)
[2023-05-19] MEDS: PANTOprazole 40 MG in SYRINGE 0 ML IV SCH (20:44)
[2023-05-20 07:54] LABS: Basophils # (auto) 0.02 K/uL (0.00-0.20); Basophils % (auto) 0.3 %; Eosinophils # (auto) 0.26 K/uL (0.00-0.50); Eosinophils % (auto) 3.4 %; Hematocrit (blood only) 27.9 % (42.0-52.0); Hemoglobin 9.2 g/dl (14.0-18.0); Immature Granulocytes # (auto) 0.03 K/uL (0.01-0.20); Immature Granulocytes % (auto) 0.4 %; Lymphocytes # (auto) 1.36 K/uL (1.20-3.40); Lymphocytes % (auto) 17.8 %; Mean Corpuscular Hemoglobin 28.5 pg (25.0-34.0); Mean Corpuscular Volume 86.4 fL (80.0-100.0); Mean Platelet Volume 9.7 fL (9.4-12.4); Monocytes # (auto) 0.89 K/uL (0.11-0.59); Monocytes % (auto) 11.7 %; Neutrophils # (auto) 5.06 K/uL (1.40-6.50); Neutrophils % (auto) 66.4 %; Platelet Count 182 K/uL (130-400); RDW Coefficient of Variation 15.2 % (11.5-14.5); RDW Standard Deviation 46.8 fL (36.4-46.3); Red Blood Count 3.23 M/uL (4.70-6.10); White Blood Count 7.62 K/ul (4.8-10.8)
[2023-05-20 08:28] LABS: BUN Creatinine Ratio 14.3 (10-20); Calcium 8.5 mg/dl (8.6-10.3); Creatinine Clr Calc Pharmacy 93.6 ml/min; Est GFR (African American) 97.2 ml/min; Est GFR (Non-African American) 83.9 ml/min; Potassium 3.7 mmol/L (3.5-5.1)
[2023-05-20 11:44] VITALS: BP 123/62; PULSE 70; TEMP 97.5; O2SAT 98
--- NOTE | 2023-05-20 12:25 | Discharge Summary ---
Date of Service May 20, 2023 Admission HPI Per Admitting Provider Patient is a 69-year-old male with past medical history of ANGEL, obesity, dyslipidemia, prostate cancer, hypertension, and coronary artery calcifications. Who presents to the hospital with black/tarry stools which st arted yesterday. He is on aspirin. He had 3-4 episodes of black tarry stools. He also notes some epigastric pain. Denies any changes to his med recently. He denies any stomach pain with eating or after eating. Does state though that for a while he has been feeling full easier. He has not been eating much since these episodes and was hoping that it would just go away. He denies any chest pain or shortness of breath. Denies any nausea vomiting or diarrhea. Denies any dysuria, urinary frequency, urinary urgency, or other symptoms. Overall he feels okay but is concerned about the black tarry stools. Principal Diagnosis Upper GI bleed, acute blood loss anemia, multiple gastric ulcers, gastric vascular ectasia Discharge Exam General-alert and oriented x3, no fever, no chills HEENT-head atraumatic and normocephalic, pupils equal and reactive to light, extraocular muscles intact Neck-no lymphadenopathy or thyromegaly, trachea midline Chest-clear to auscultation. No rales, wheezing or rhonchi Cardiac-regular rate and rhythm, normal S1 and S2 Abdomen-normal bowel sounds, nontender, no hepatosplenomegaly Extremities-no cyanosis, clubbing, or edema Neuro-cranial nerves II through XII intact, motor and sensory function within normal limits, strength symmetrical, no focal deficits Psych-normal affect, normal mood Discharge Data Allergies Allergy/AdvReac Type Severity Reaction Status Date / Time No Known Allergies Allergy Mild Verified 05/17/23 22:57 Consultations 05/17/23 21:37 ED Decision to Admit Stat 05/18/23 09:57 Consult Gastroenterology Routine Procedures Performed Operation Date: 05/19/23 17:30 Actual Procedures p EGD Biopsy Cytology - Eliezer Gupta MD Hospital Course (1) GIB (gastrointestinal bleeding): Upper GI source associated with melena. Treated while hospitalized with Protonix drip and subsequently switched to oral Protonix and Carafate. GI consultation appreciated. EGD completed which revealed multiple nonbleeding gastric ulcers and gastric vascular ectasia. He will remain on Protonix indefinitely and Carafate for at least 2 weeks. (2) Acute blood loss anemia: Hemoglobin appears to have stabilized. He has not required blood transfusion. Serial labs while hospitalized (3) Hypertension: Currently stable. Amlodipine is on hold. This will be restarted at discharge (4) Severe obstructive sleep apnea: Stable. Continue CPAP nightly Plan Home today, May 20 Total Time Total Time Spent Total Time Spent (In Minutes): 45-minute Discharge Plan Discharge Items Patient Disposition: Home - Self-Care Reason For Visit: GIB Discharge Diagnosis: Upper GI bleed, multiple gastric ulcers, gastric vascular ectasia, acute blood loss anemia Activity: Resume your previous activity Non-emergency contact: Primary Care Provider and Poultry Inspector Call non-emergency contact if: you have any medication questions and your symptoms worsen Follow-up/Referrals: Austyn Navarro MD [Primary Care Provider] - Diet: Regular and Heart Healthy Addtl Attending Provider Instructions: Take Protonix twice daily and Carafate 4 times a day on an empty stomach. Follow-up with primary care provider soon as possible Pending Studies at Discharge: No Stand-Alone Forms: My [facility] [employer], Smoking Cessation Medications and DC Order Prescriptions: New sucralfate 1 gram Tablet 1 g PO QID Qty: 60 0RF pantoprazole 40 mg Tablet,Delayed Release (Dr/Ec) 40 mg PO BID Qty: 60 0RF Continued amlodipine [Norvasc] 5 mg tablet 5 mg PO QAM Qty: 90 3RF (DME) CPAP Machine Misc See Rx Instructions .Route Qty: 1 0RF Rx Instructions: As directed (DME) CPAP Supplies Misc See Rx Instructions .Route Qty: 1 0RF Rx Instructions: As directed ascorbic acid (vitamin C) 500 mg tablet 1,000 mg PO QPM Centrum Silver Men 300-600-300 mcg Tablet 1 tab PO PM cholecalciferol (vitamin D3) [Vitamin D3] 50 mcg (2,000 unit) capsule 50 mcg PO QAM Patient Comments: bottle says with calcium 75 mg coenzyme Q10 [CoQ-10] 100 mg capsule 100 mg PO QAM aspirin 81 mg tablet,delayed release (DR/EC) 81 mg PO QPM clotrimazole-betamethasone 1-0.05 % cream 1 applic topical BID PRN (Reason: Skin Irritation) atorvastatin 20 mg tablet 20 mg PO QPM Discharge Orders: Discharge Order (Routine); Ordered 05/20/23 Ordered By: Real Martinez Admission Data Admit Date/Time: 05/17/23 22:51 Attending Provider: Real Martinez Admit Provider: Aftab Jin Primary Care Provider: Austyn Navarro V. Other Providers: Palma Glez; Janell Frausto; Bay Herron; Yue Fajardo; Rose Montilla; Diane Torres; Preeti Nelson; Eliezer Gupta; Amari Mccall; Darci Bray; Matthew Robb; Ni Flores; Shea Negro; Jaz Gorman; Emma Coronel; Svitlana Contreras; Martinez Merritt; Tulio Khan; Hank Andrews; Malena Cantrell; Mary Ann Marin Jr Coding Level of Care Code 75860 INP/OBS DISCH >30 MIN Diagnoses GIB (gastrointestinal bleeding) K92.2 Acute blood loss anemia D62 Hypertension I10 Severe obstructive sleep apnea G47.33
[2023-05-20] MEDS ORDERED: PANTOprazole 40 MG TAB PO SCH (21:00)
== END 2023-05-20 15:45 | disposition home or self-care (01) ==
LOC: ED 20:16 → INTOOBSV 22:51 → SUATTDRO 22:51 → EDINP 22:51 → 2S 05-18 10:29